=== PATIENT | female | born 1955 | race African-American/Black ===

== ENCOUNTER 2016-07-06 08:07 | Day surgery (SDC) | payer MEDICARE, OTHER ==
[~2016-07-06 08:07] MED LIST: PROPOFOL INJ 200 MG/20 ML VIAL IV ONE
[2016-07-06] MEDS ORDERED: PROPOFOL INJ 200 MG/20 ML VIAL IV ONE (09:56)
[2016-07-06 11:08] VITALS: BP 167/79
--- NOTE | 2016-07-06 14:51 | Operative Report ---
Operative Report DATE OF SURGERY: 07/06/16 Operative Report: The risks, benefits and alternatives of the procedure including risks of bleeding, perforation requiring surgery are explained to the patient detail and informed consent is obtained. Patient is placed in the left lateral decubital position and brought back to the endoscopy suite. Timeout is called. Propofol medication is administered. A rectal examination is Did not reveal any masses tears or fissures. An Olympus videoscope this inserted into the patient's rectum. Keeping the lumen in site at all times the scope was then gradually advanced all the way to the cecum. The cecum as identified by the usual anatomical landmarks of the ileocecal valve as well as the appendiceal office. Photodocumentation was obtained. Prep is good. The scope was then sequentially pulled back via the various segments of the colon including the ascending colon, hepatic flexure, transverse colon, splenic flexure, descending colon and finally into the rectosigmoid portions of the colon. Retroflexion maneuvers performed. The risks benefits and alternatives of the procedure explained to the patient in detail and informed consent is obtained that GIF Olympus video scope was inserted into the patient's mouth and hypopharynx the esophagus is identified intubated and insufflated the scope was then advanced through the esophagus stomach and duodenum retroflexion maneuver is done the esophagus stomach and first and second portions of the duodenum examined PREOPERATIVE DIAGNOSIS: Dysphagia, difficulty swallowing history of note Schatzki's ring. Colorectal cancer screening POSTOPERATIVE DIAGNOSIS: Mild right-sided colitis status post biopsy. Esophagitis versus Raza's status post biopsy. No Schatzki's ring that is broken. Gastritis biopsies obtained to rule out Helicobacter pylori. Duodenitis OPERATION: Colonoscopy with biopsy. EGD with biopsy SURGEON: JORDY BENNETT ANESTHESIA: LMAC TISSUE REMOVED OR ALTERED: Colon specimens obtained rule out lymphocytic, microscopic, collagenous colitis. Gastric specimen obtained rule out Helicobacter pylori. Esophageal specimen obtained for confirmation of possible Raza's esophagus COMPLICATIONS: None. ESTIMATED BLOOD LOSS: none INTRAOPERATIVE FINDINGS: As described above. Colonoscopy does not show any AVMs , diverticulosis, AVMs. PROCEDURE: Patient tolerated the procedure well. No immediate postprocedure complications are noted. Patient is discharged in good condition. Discharge date 07/06/2016. Discharge diet: Regular. Discharge activity: Regular. Patient does have a 2-3 week follow-up to discuss findings. Patient is instructed to call the office or proceed to the emergency room should there be any further problems or questions. We'll await on biopsies. Surveillance colonoscopy in 7-10 years.
== END 2016-07-06 10:51 | disposition home or self-care (01) ==
LOC: END 08:07
PROVIDERS: ATTEND Internal Medicine Gastroenterology
PROC: 0DBF8ZX Excision of Right Large Intestine, Via Natural or Artificial Opening Endoscopic, Diagnostic (ICD-10-PCS; 2016-07-06)
PROC: 0DB68ZX Excision of Stomach, Via Natural or Artificial Opening Endoscopic, Diagnostic (ICD-10-PCS; principal; 2016-07-06 09:30)
PROC: 0DB58ZX Excision of Esophagus, Via Natural or Artificial Opening Endoscopic, Diagnostic (ICD-10-PCS; 2016-07-06 09:30)
DX: K29.50 Unspecified chronic gastritis without bleeding (principal); B96.81 Helicobacter pylori [H. pylori] as the cause of diseases classified elsewhere; K29.80 Duodenitis without bleeding; K52.9 Noninfective gastroenteritis and colitis, unspecified; E11.9 Type 2 diabetes mellitus without complications; I10 Essential (primary) hypertension; E78.00 Pure hypercholesterolemia, unspecified; K21.9 Gastro-esophageal reflux disease without esophagitis; Z79.4 Long term (current) use of insulin; Z79.899 Other long term (current) drug therapy
CPT/HCPCS: 43239; 45380; 82962; 88342 ×2; 88305 ×2; 88312 ×2; J2704; 740

== ENCOUNTER 2016-08-05 08:40 | Day surgery (SDC) | payer MEDICARE, OTHER ==
[2016-08-05] MEDS ORDERED: FENTANYL CITRATE INJ/PF 100 MCG/2 ML AMPUL ONE (09:03)
[2016-08-05] MEDS ORDERED: MIDAZOLAM 2 MG/2 ML INJ ONE (09:03)
[2016-08-05] MEDS ORDERED: DIPHENHYDRAMINE HCL 50 MG/ML VIAL ONE (09:03)
[2016-08-05] MEDS ORDERED: PROMETHAZINE HCL INJ 25 MG/1 ML VIAL ONE (09:03)
[2016-08-05] MEDS ORDERED: NALOXONE HCL INJ/PF 0.4 MG/1 ML SDV ONE (09:03)
[2016-08-05] MEDS ORDERED: ONDANSETRON HCL INJ/PF 4 MG/2 ML SDV ONE (09:03)
[2016-08-05] MEDS ORDERED: EPINEPHRINE INJ 1 MG/10 ML DISP.SYRIN ONE (09:04)
[2016-08-05] MEDS ORDERED: FLUMAZENIL INJ 0.5 MG/5 ML VIAL IV ONE (09:04)
[2016-08-05] MEDS ORDERED: GLUCAGON,HUMAN RECOMB 1 MG INJ ONE (09:04)
--- NOTE | 2016-08-05 09:32 | Operative Report ---
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 Conscious sedation monitoring time 15 minutes TISSUE REMOVED OR ALTERED: None. COMPLICATIONS: None. ESTIMATED BLOOD LOSS: none. INTRAOPERATIVE FINDINGS: Raza's esophagus. Gastritis improved PROCEDURE: Patient tolerated the procedure well No immediate postprocedure complications are noted. Patient is discharged in good condition. Discharge date 08/05/2016. Discharge diet: Regular. Discharge activity: Regular. 2-3 week follow-up to discuss findings. Surveillance EGD in 6 months. Patient is instructed to call the office or proceed to the emergency room after any further problems or questions.
[2016-08-05 10:39] VITALS: BP 158/75
== END 2016-08-05 10:40 | disposition home or self-care (01) ==
LOC: END 08:40
PROVIDERS: ATTEND Internal Medicine Gastroenterology
PROC: 0D558ZZ Destruction of Esophagus, Via Natural or Artificial Opening Endoscopic (ICD-10-PCS; principal; 2016-08-05 09:00)
DX: K22.710 Barrett's esophagus with low grade dysplasia (principal); K29.70 Gastritis, unspecified, without bleeding; E11.65 Type 2 diabetes mellitus with hyperglycemia; I10 Essential (primary) hypertension; E78.00 Pure hypercholesterolemia, unspecified; L65.9 Nonscarring hair loss, unspecified; B35.3 Tinea pedis; Z79.899 Other long term (current) drug therapy; Z79.4 Long term (current) use of insulin; F17.210 Nicotine dependence, cigarettes, uncomplicated
CPT/HCPCS: 43270; 82962; J2250; J3010; J0171; J1200; J1610; J2310; J2405; J2550; J3490

== ENCOUNTER 2016-08-28 09:43 | Emergency (ER) | payer MEDICARE, OTHER ==
[2016-08-28] MEDS ORDERED: ASPIRIN 81 MG TABLET, CHEWABLE PO ONE (10:12)
[2016-08-28] MEDS ORDERED: ONDANSETRON 4 MG TAB.RAPDIS PO ONE (10:23)
[2016-08-28] MEDS ORDERED: CLONIDINE HCL 0.1 MG TABLET PO ONE (10:23)
[2016-08-28] MEDS ORDERED: LOSARTAN POTASSIUM 50 MG TABLET PO ONE (10:36)
[2016-08-28] MEDS ORDERED: DIPHENHYDRAMINE HCL 50 MG/ML VIAL IV ONE (10:36)
[2016-08-28] MEDS ORDERED: NORMAL SALINE 1000 ML 1,000 ML IV ONE (10:36)
[2016-08-28] MEDS ORDERED: METOCLOPRAMIDE HCL INJ/PF 10 MG/2 ML SDV IV ONE (10:36)
[2016-08-28 11:09] LABS: ABSOLUTE BASOPHILS # (AUTO) 0.1 10^3/uL (0.0-0.2); ABSOLUTE LYMPHOCYTES (AUTO) 1.2 10^3/uL (0.5-4.7); ABSOLUTE MONOCYTES (AUTO) 1.2 10^3/uL (0.1-1.4); ABSOLUTE NEUT (AUTO) 13.7 10^3/uL (1.7-8.2); BASOPHILS % (AUTO) 0.4 % (0-2); EOSINOPHILS % (AUTO) 0.3 % (0-6); HEMOGLOBIN 10.3 g/dL (12.0-15.5); HGB HCT DIFFERENCE -0.1; LYMPHOCYTES % (AUTO) 7.6 % (13-45); MEAN CORPUSCULAR HEMOGLOBIN 27.1 pg (27.0-33.4); MEAN CORPUSCULAR HGB CONC 33.1 g/dL (32.0-36.0); MEAN CORPUSCULAR VOLUME 82 fl (80-97); MONOCYTES % (AUTO) 7.2 % (3-13); RED BLOOD COUNT 3.79 10^6/uL (3.72-5.28); RED CELL DISTRIBUTION WIDTH 14.3 % (11.5-14.0); SEGMENTED NEUTROPHILS % (AUTO) 84.5 % (42-78); WHITE BLOOD COUNT 16.2 10^3/uL (4.0-10.5)
[2016-08-28] MEDS ORDERED: NIFEDIPINE 30 MG TAB.ER.24 PO ONE (11:23)
[2016-08-28 11:32] LABS: ALANINE AMINOTRANSFERASE 37 U/L (9-52); ALBUMIN 3.8 g/dL (3.5-5.0); ALKALINE PHOSPHATASE 164 U/L (38-126); ASPARTATE AMINO TRANSFERASE 39 U/L (14-36); BILIRUBIN,TOTAL 0.7 mg/dL (0.2-1.3); BLOOD UREA NITROGEN 10 mg/dL (7-20); CALCIUM 9.3 mg/dL (8.4-10.2); CARBON DIOXIDE 25 mmol/L (22-30); CHLORIDE 98 mmol/L (98-107); CREATINE KINASE 106 U/L (30-135); CREATININE RESULT 0.67 mg/dL (0.52-1.25); GLUCOSE 245 mg/dL (75-110); LIPASE 21.3 U/L (23-300); POTASSIUM 3.4 mmol/L (3.6-5.0); SODIUM 144.5 mmol/L (137-145); TOTAL PROTEIN 7.5 g/dL (6.3-8.2)
[2016-08-28 11:45] LABS: ANION GAP 22 (5-19)
--- NOTE | 2016-08-28 13:17 | ER Document Report ---
ED General - General Chief Complaint: Blood Pressure Problem Stated Complaint: BLOOD PRESSURE PROBLEM TRAVEL OUTSIDE OF THE [place] IN LAST 30 DAYS: No - HPI Patient complains to provider of: elevated blood pressure nausea vomiting Notes: Patient coming in for evaluation of elevated blood pressure nausea vomiting. Patient states vomited multiple times morning and did not take her blood pressure medication due to vomiting. Patient denies any recent trauma denies fevers chills diarrhea. Denies any sick contacts or recent antibiotics. Upon my evaluation patient is resting comfortably. Patient states no change in her medications from previous hospitalizations. - Related Data Allergies/Adverse Reactions: No Known Allergies Allergy (Verified 08/28/16 10:10) Past Medical History - Social History Smoking Status: Former Smoker Chew tobacco use (# tins/day): No Frequency of alcohol use: None Drug Abuse: None Family History: Reviewed & Not Pertinent Patient has suicidal ideation: No Patient has homicidal ideation: No - Past Medical History Cardiac Medical History: Reports: Hx Coronary Artery Disease - STENTS PLACED IN LEGS, Hx Hypertension Denies: Hx Heart Attack Pulmonary Medical History: Denies: Hx Asthma, Hx Bronchitis, Hx COPD, Hx Pneumonia Neurological Medical History: Denies: Hx Cerebrovascular Accident, Hx Seizures Endocrine Medical History: Reports: Hx Diabetes Mellitus Type 1 Renal/ Medical History: Denies: Hx Peritoneal Dialysis Musculoskeltal Medical History: Denies Hx Arthritis Past Surgical History: Reports: Hx Hysterectomy, Hx Vascular Surgery - Right leg artery stent - Immunizations Hx Diphtheria, Pertussis, Tetanus Vaccination: Yes Review of Systems - Review of Systems Constitutional: Other - Elevated blood pressure EENT: No symptoms reported Cardiovascular: No symptoms reported Respiratory: No symptoms reported Gastrointestinal: Nausea, Vomiting Genitourinary: No symptoms reported Female Genitourinary: No symptoms reported Musculoskeletal: No symptoms reported Skin: No symptoms reported Hematologic/Lymphatic: No symptoms reported Neurological/Psychological: No symptoms reported Physical Exam - Vital signs Vitals: Temp Pulse Resp BP Pulse Ox 98.2 F 77 18 198/88 H 100 08/28/16 10:00 08/28/16 10:00 08/28/16 10:00 08/28/16 10:00 08/28/16 10:00 Interpretation: Normal - General General appearance: Appears well, Alert - HEENT Head: Normocephalic, Atraumatic Eyes: Normal Pupils: PERRL - Respiratory Respiratory status: No respiratory distress Chest status: Nontender Breath sounds: Normal Chest palpation: Normal - Cardiovascular Rhythm: Regular Heart sounds: Normal auscultation Murmur: No - Abdominal Inspection: Normal Distension: No distension Bowel sounds: Normal Tenderness: Nontender Organomegaly: No organomegaly - Back Back: Normal, Nontender - Extremities General upper extremity: Normal inspection, Nontender, Normal color, Normal ROM , Normal temperature General lower extremity: Normal inspection, Nontender, Normal color, Normal ROM , Normal temperature, Normal weight bearing. No: Genesis's sign - Neurological Neuro grossly intact: Yes Cognition: Normal Orientation: AAOx4 [place] Coma Scale Eye Opening: Spontaneous [place] Coma Scale Verbal: Oriented Elizabeth Coma Scale Motor: Obeys Commands [place] Coma Scale Total: 15 Speech: Normal Motor strength normal: LUE, RUE, LLE, RLE Sensory: Normal - Psychological Associated symptoms: Normal affect, Normal mood - Skin Skin Temperature: Warm Skin Moisture: Dry Skin Color: Normal Course - Re-evaluation Re-evalutation: 08/28/16 18:30 Patient's lab work shows no critical etiology. Patient was given anti-medics and then her blood pressure medications with reduction her blood pressure. Patient feeling better asking for a meal. Patient was given antinausea medication discharged home more likely etiology of her symptoms is a viral illness. - Vital Signs Vital signs: Temp Pulse Resp BP Pulse Ox 98.3 F 74 20 195/61 H 100 08/28/16 13:32 08/28/16 13:32 08/28/16 13:32 08/28/16 13:32 08/28/16 13:32 - Laboratory Result Diagrams: 08/28/16 11:00 08/28/16 11:00 Laboratory results interpreted by me: 08/28/16 08/28/16 11:00 11:00 WBC 16.2 H Hgb 10.3 L Hct 31.0 L RDW 14.3 H Seg Neutrophils % 84.5 H Lymphocytes % 7.6 L Absolute Neutrophils 13.7 H Potassium 3.4 L Anion Gap 22 H Glucose 245 H AST 39 H Alkaline Phosphatase 164 H Lipase 21.3 L Discharge - Discharge Clinical Impression: Hypertension Qualifiers: Hypertension type: unspecified secondary hypertension Qualified Code(s): I15.9 - Secondary hypertension, unspecified Nausea & vomiting Qualifiers: Vomiting type: unspecified Vomiting Intractability: unspecified Qualified Code( s): R11.2 - Nausea with vomiting, unspecified Condition: Good Disposition: HOME, SELF-CARE Instructions: Nausea or Vomiting, Nonspecific ([facility]), High Blood Pressure ([facility]) Additional Instructions: Please take your home hypertensive medications as prescribed. You may take nausea medication as prescribed to as well. If one nausea medication does not work you may try the other. Return to the ER symptoms worsen. Prescriptions: Ondansetron [Zofran Odt 4 mg Tablet] 1 - 2 tab PO Q4H PRN #20 tab.rapdis PRN Reason: For Nausea/Vomiting Promethazine HCl [Phenergan 25 mg Tablet] 1 - 2 tab PO Q6H PRN #20 tablet PRN Reason: Forms: Return to Work Referrals: PAWAN BRODY MD [Primary Care Provider] - Follow up as needed
[2016-08-28 13:33] VITALS: BP 195/61
--- NOTE | 2016-08-29 16:05 | EKG REPORT ---
SEVERITY:- ABNORMAL ECG - SINUS RHYTHM ABNRM R PROG, CONSIDER ASMI OR LEAD PLACEMENT : Confirmed by: Jagruti Chandler MD 29-Aug-2016 16:04:40
== END 2016-08-28 13:32 | disposition home or self-care (01) ==
LOC: ER 09:43
DX: R11.2 Nausea with vomiting, unspecified (principal); I10 Essential (primary) hypertension; I25.10 Atherosclerotic heart disease of native coronary artery without angina pectoris; Z87.891 Personal history of nicotine dependence; Z79.899 Other long term (current) drug therapy; E10.9 Type 1 diabetes mellitus without complications
CPT/HCPCS: 93005; 99284; 96374; 96375; 36415; 82553; 82550; 83690; 85025; 80053; 71010; 93010; A9270 ×4; J1200; J2765; J7030

== ENCOUNTER 2016-09-15 16:12 | Inpatient (IN) | payer MEDICARE, OTHER ==
--- NOTE | 2016-09-15 17:52 | ER Document Report ---
ED Medical Screen (RME) - General Mode of Arrival: Ambulatory Information source: Patient, Relative - daughter TRAVEL OUTSIDE OF THE [place] IN LAST 30 DAYS: No - HPI Patient complains to provider of: Low Hemoglobin count Associated Symptoms: Other - see notes above - General Chief Complaint: Abnormal Lab Results Stated Complaint: WEAKNESS Notes: 61 year old female presents to the ED after being sent in by Dr. Headley, her primary care physician, for a low hemoglobin count. Patient's daughter reports that blood work was also done by [email or web address] which also indicated a low hemoglobin. Patient denies any bleeding, including blood in the stool, urine, or vomit. Patient's daughter states that the patient was constipated 1 week ago and had to take a laxative for relief. Patient currently has diarrhea and lower abdominal pain. Patient denies being on any blooding thinning medication. (CHASTITY CLARK) - Related Data Allergies/Adverse Reactions: No Known Allergies Allergy (Verified 09/15/16 16:15) Past Medical History - General Information source: Patient, Relative - daughter - Past Medical History Cardiac Medical History: Reports: Hx Coronary Artery Disease - STENTS PLACED IN LEGS, Hx Hypertension Denies: Hx Heart Attack Endocrine Medical History: Reports: Hx Diabetes Mellitus Type 1 Renal/ Medical History: Denies: Hx Peritoneal Dialysis Musculoskeltal Medical History: Denies Hx Arthritis Past Surgical History: Reports: Hx Hysterectomy, Hx Vascular Surgery - Right leg artery stent - Immunizations Hx Diphtheria, Pertussis, Tetanus Vaccination: Yes Review of Systems - Review of Systems Constitutional: No symptoms reported EENT: No symptoms reported Cardiovascular: No symptoms reported Respiratory: No symptoms reported Gastrointestinal: See HPI, Abdominal pain - lower, Diarrhea. denies: Vomiting, Blood in vomit, Black stools Genitourinary: No symptoms reported Female Genitourinary: No symptoms reported Musculoskeletal: No symptoms reported Skin: No symptoms reported Hematologic/Lymphatic: No symptoms reported Neurological/Psychological: No symptoms reported -: Yes All other systems reviewed and negative Physical Exam - General General appearance: Alert In distress: None - Respiratory Respiratory status: No respiratory distress - Abdominal Inspection: Normal Distension: No distension Tenderness: Nontender Course - Re-evaluation Re-evalutation: 09/15/16 18:12 I personally performed the services described in the documentation, reviewed and edited the documentation which was dictated to the scribe in my presence, and it accurately records my words and actions. (ERWIN GALICIA) - Vital Signs Vital signs: Temp Pulse Resp BP Pulse Ox 98.6 F 78 18 139/59 H 97 09/15/16 16:16 09/15/16 16:16 09/15/16 16:16 09/15/16 16:16 09/15/16 16:16 Scribe Documentation - Scribe Written by Scribe:: Leo Moss, 09/15/2016 0634 acting as scribe for :: Dorian
[2016-09-15 18:29] LABS: ABSOLUTE EOSINOPHILS # (AUTO) 0.2 10^3/uL (0.0-0.6); ABSOLUTE LYMPHOCYTES (AUTO) 1.9 10^3/uL (0.5-4.7); ABSOLUTE MONOCYTES (AUTO) 1.3 10^3/uL (0.1-1.4); BASOPHILS % (AUTO) 0.3 % (0-2); EOSINOPHILS % (AUTO) 1.3 % (0-6); HEMATOCRIT 26.3 % (36.0-47.0); HEMOGLOBIN 8.3 g/dL (12.0-15.5); HGB HCT DIFFERENCE -1.4; LYMPHOCYTES % (AUTO) 14.2 % (13-45); MEAN CORPUSCULAR HEMOGLOBIN 25.1 pg (27.0-33.4); MEAN CORPUSCULAR HGB CONC 31.6 g/dL (32.0-36.0); MEAN CORPUSCULAR VOLUME 79 fl (80-97); MONOCYTES % (AUTO) 9.8 % (3-13); RED BLOOD COUNT 3.32 10^6/uL (3.72-5.28); RED CELL DISTRIBUTION WIDTH 17.9 % (11.5-14.0); SEGMENTED NEUTROPHILS % (AUTO) 74.4 % (42-78); WHITE BLOOD COUNT 13.4 10^3/uL (4.0-10.5)
[2016-09-15 18:38] LABS: PROTHROMBIN TIME 13.3 SEC (11.4-15.4)
[2016-09-15 18:39] LABS: PARTIAL THROMBOPLASTIN TIME 34.9 SEC (23.5-35.8)
[2016-09-15 18:43] LABS: ALANINE AMINOTRANSFERASE 71 U/L (9-52); ALBUMIN 3.3 g/dL (3.5-5.0); ALKALINE PHOSPHATASE 197 U/L (38-126); ANION GAP 13 (5-19); ASPARTATE AMINO TRANSFERASE 54 U/L (14-36); BILIRUBIN,DIRECT 0.2 mg/dL (0.0-0.4); BILIRUBIN,TOTAL 0.4 mg/dL (0.2-1.3); BLOOD UREA NITROGEN 15 mg/dL (7-20); CALCIUM 9.1 mg/dL (8.4-10.2); CARBON DIOXIDE 27 mmol/L (22-30); CHLORIDE 92 mmol/L (98-107); CREATININE RESULT 1.41 mg/dL (0.52-1.25); POTASSIUM 4.8 mmol/L (3.6-5.0); SODIUM 132.3 mmol/L (137-145); TOTAL PROTEIN 6.9 g/dL (6.3-8.2)
[2016-09-15 18:52] LABS: GLUCOSE 533 mg/dL (75-110)
[2016-09-15] MEDS ORDERED: NORMAL SALINE 1000 ML 1,000 ML IV ONE ×2 (19:25→22:44)
[2016-09-15] MEDS ORDERED: METHOCARBAMOL 500 MG TABLET PO ONE (20:17)
--- NOTE | 2016-09-15 20:21 | ER Document Report ---
ED General - General Chief Complaint: Abnormal Lab Results Stated Complaint: WEAKNESS Mode of Arrival: Ambulatory Information source: Patient, Relative Notes: Patient presents emergency department for low hemoglobin. Patient was sent over by her primary care provider Dr. Headley. Patient gives history of colonoscopy and EGD done in July. They discovered Barretts. Patient was also treated for H. pylori. Patient reports that she's been feeling weak, she vomited recently yesterday, has had diarrhea and then constipation. She reports she's had decreased appetite for the past 3 weeks. Patient does have a history of high blood pressure and diabetes. Patient reports she's had a blood transfusion in the past after she had a hysterectomy. Glucose today was 533, patient reports she didn't take her insulin. Patient was able to eat whyte egg and cheese sandwich this morning. Patient is complaining she's hungry now requesting food. Patient is now complaining that the back of her neck and upper shoulders ache. She denies trauma. She denies fever. TRAVEL OUTSIDE OF THE [place] IN LAST 30 DAYS: No - HPI Onset: Other Onset/Duration: Persistent - 3 weeks Quality of pain: Achy Severity: Severe Pain Level: 4 Associated symptoms: Diarrhea, Vomiting, Other - neck pain Exacerbated by: Denies Relieved by: Denies Similar symptoms previously: Yes Recently seen / treated by doctor: Yes - Related Data Allergies/Adverse Reactions: No Known Allergies Allergy (Verified 09/15/16 16:15) Past Medical History - General Information source: Patient, Relative - daughter Last Menstrual Period: hys - Social History Smoking Status: Unknown if Ever Smoked Cigarette use (# per day): No Chew tobacco use (# tins/day): Yes - snuff Frequency of alcohol use: None Drug Abuse: None Lives with: Family Family History: Reviewed & Not Pertinent Patient has suicidal ideation: No Patient has homicidal ideation: No - Past Medical History Cardiac Medical History: Reports: Hx Coronary Artery Disease - STENTS PLACED IN LEGS, Hx Hypertension Denies: Hx Heart Attack Pulmonary Medical History: Denies: Hx Asthma, Hx Bronchitis, Hx COPD, Hx Pneumonia Neurological Medical History: Denies: Hx Cerebrovascular Accident, Hx Seizures Endocrine Medical History: Reports: Hx Diabetes Mellitus Type 1 Renal/ Medical History: Denies: Hx Peritoneal Dialysis GI Medical History: Reports: Hx Endoscopy Musculoskeltal Medical History: Denies Hx Arthritis Past Surgical History: Reports: Hx Hysterectomy, Hx Vascular Surgery - Right leg artery stent - Immunizations Hx Diphtheria, Pertussis, Tetanus Vaccination: Yes Review of Systems - Review of Systems Notes: -Review HPI for review of systems., All other systems negative. Physical Exam - Vital signs Vitals: Temp Pulse Resp BP Pulse Ox 98.6 F 78 18 139/59 H 97 09/15/16 16:16 09/15/16 16:16 09/15/16 16:16 09/15/16 16:16 09/15/16 16:16 - Notes Notes: PHYSICAL EXAMINATION: GENERAL: nontoxic looking, looks tired HEAD: Atraumatic, normocephalic. EYES: Pupils equal round extraocular movements intact, sclera anicteric, conjunctiva are normal. ENT: TM WNL, nares patent, oropharynx clear without exudates. Moist mucous membranes. NECK: Normal range of motion, supple without lymphadenopathy c/o pain to posterior neck, upper back LUNGS: CTAB and equal. No wheezes rales or rhonchi. HEART: Regular rate and rhythm without murmurs ABDOMEN: Soft, no tenderness. No guarding, no rebound EXTREMITIES: Normal range of motion, no pitting edema. No cyanosis. NEUROLOGICAL: Cranial nerves grossly intact. Normal sensory/motor exams. PSYCH: Normal mood, normal affect. SKIN: Warm, Dry, normal turgor, no rashes or lesions noted - Rectal Tenderness: No Stool: Heme negative Hemorrhoids: None Course - Re-evaluation Re-evalutation: 09/15/16 21:12 Patient eating crackers drinking efrain bryanna reports she feels much better. Repeat Accu-Chek for 30. Since patient is eating will give her her regular insulin 09/15/16 23:[address] hernandez she agree's with admission. Dr Miles contacted, he is unable to take report. Patient and daughter updated on all results plan to admit. They've verbalized understanding. Pt hungry, food ordered. 09/16/16 01:00 Dr Miles in the ED still unavailable to take report. Patient resting quietly 09/16/16 05:13 Dr Miles called, updated on patient status, agrees to admission, tele. inpatient. Patient and daughter updated on admission. Patient is irritated wanting to know why it took so long, why she hasn't seen Dr. Miles and when will get the bed. She reports she hasn't slept all night. Emotional support provided. Percocet ordered for her neck pain. Pt looks good, nontoxic looking. Patient is still irritated..... - Vital Signs Vital signs: Temp Pulse Resp BP Pulse Ox 98.6 F 78 18 150/88 H 99 09/15/16 16:16 09/15/16 16:16 09/15/16 16:16 09/16/16 07:01 09/16/16 07:01 - Laboratory Result Diagrams: 09/16/16 06:20 09/16/16 06:20 Laboratory results interpreted by me: 09/15/16 09/15/16 09/15/16 18:20 18:20 21:07 WBC 13.4 H RBC 3.32 L Hgb 8.3 L Hct 26.3 L MCV 79 L MCH 25.1 L MCHC 31.6 L RDW 17.9 H Plt Count 511 H Absolute Neutrophils 10.0 H Sodium 132.3 L Chloride 92 L Creatinine 1.41 H Est GFR ( Amer) 46 L Est GFR (Non-Af Amer) 38 L Glucose 533 H* POC Glucose 442 H* AST 54 H ALT 71 H Alkaline Phosphatase 197 H Albumin 3.3 L Urine Protein Urine Glucose (UA) Ur Leukocyte Esterase 09/15/16 09/15/16 09/16/16 21:48 22:33 00:40 WBC RBC Hgb Hct MCV MCH MCHC RDW Plt Count Absolute Neutrophils Sodium Chloride Creatinine Est GFR ( Amer) Est GFR (Non-Af Amer) Glucose POC Glucose 466 H* 381 H AST ALT Alkaline Phosphatase Albumin Urine Protein 100 H Urine Glucose (UA) >=500 H Ur Leukocyte Esterase LARGE H 09/16/16 05:19 WBC RBC Hgb Hct MCV MCH MCHC RDW Plt Count Absolute Neutrophils Sodium Chloride Creatinine Est GFR ( Amer) Est GFR (Non-Af Amer) Glucose POC Glucose 322 H AST ALT Alkaline Phosphatase Albumin Urine Protein Urine Glucose (UA) Ur Leukocyte Esterase Discharge - Discharge Clinical Impression: Anemia, Hyperglycemia, Urinary tract infection Disposition: ADMITTED INPATIENT Admitting Provider: Carolina miles Unit Admitted: Telemetry
[2016-09-15] MEDS ORDERED: INSULIN REG, HUMAN 100 UNIT/ML 3 ML VIAL (PYX) SUBCUT ONE (21:09)
[2016-09-15 22:12] LABS: APPEARANCE,URINE SLIGHTLY-CLOUDY; BILIRUBIN,URINE NEGATIVE (NEGATIVE); GLUCOSE, URINE >=500 mg/dL (NEGATIVE); KETONES,URINE NEGATIVE (NEGATIVE); LEUKOCYTE ESTERASE,URINE LARGE (NEGATIVE); NITRITE,URINE NEGATIVE (NEGATIVE); PROTEIN,URINE 100 mg/dL (NEGATIVE); URINE SPECIFIC GRAVITY 1.007; UROBILINOGEN,URINE NEGATIVE mg/dL (<2.0)
[2016-09-15] MEDS ORDERED: INSULIN REG, HUMAN 100 UNIT/ML 3 ML VIAL (PYX) IV ONE (22:44)
[2016-09-15] MEDS ORDERED: OXYCODONE-ACETAMINOPHEN 5-325 MG TABLET PO ONE (22:53)
[2016-09-15] MEDS ORDERED: CEFTRIAXONE RTU 1 GM/D5W 50 ML IV ONE (23:35)
[2016-09-16] MEDS ORDERED: INSULIN GLARGINE,HUM.REC.ANLOG 1,000 UNIT/10 ML UNIT SUBCUT ONE (01:29)
[2016-09-16] MEDS ORDERED: OXYCODONE-ACETAMINOPHEN 5-325 MG TABLET PO ONE (05:25)
[2016-09-16 06:55] LABS: ALANINE AMINOTRANSFERASE 64 U/L (9-52); ALBUMIN 2.8 g/dL (3.5-5.0); ALKALINE PHOSPHATASE 174 U/L (38-126); ANION GAP 14 (5-19); ASPARTATE AMINO TRANSFERASE 52 U/L (14-36); BILIRUBIN,DIRECT 0.2 mg/dL (0.0-0.4); BILIRUBIN,TOTAL 0.2 mg/dL (0.2-1.3); BLOOD UREA NITROGEN 10 mg/dL (7-20); CALCIUM 8.7 mg/dL (8.4-10.2); CARBON DIOXIDE 25 mmol/L (22-30); CHLORIDE 101 mmol/L (98-107); CREATININE RESULT 0.86 mg/dL (0.52-1.25); GLUCOSE 320 mg/dL (75-110); MAGNESIUM 1.6 mg/dL (1.6-2.3); POTASSIUM 4.1 mmol/L (3.6-5.0); SODIUM 139.6 mmol/L (137-145); TOTAL PROTEIN 6.2 g/dL (6.3-8.2)
[2016-09-16 07:07] LABS: ABSOLUTE BASOPHILS # (AUTO) 0.1 10^3/uL (0.0-0.2); ABSOLUTE EOSINOPHILS # (AUTO) 0.2 10^3/uL (0.0-0.6); ABSOLUTE LYMPHOCYTES (AUTO) 1.7 10^3/uL (0.5-4.7); ABSOLUTE MONOCYTES (AUTO) 1.3 10^3/uL (0.1-1.4); ABSOLUTE NEUT (AUTO) 6.7 10^3/uL (1.7-8.2); BASOPHILS % (AUTO) 0.7 % (0-2); EOSINOPHILS % (AUTO) 1.7 % (0-6); HEMATOCRIT 24.2 % (36.0-47.0); HGB HCT DIFFERENCE -0.2; LYMPHOCYTES % (AUTO) 17.4 % (13-45); MEAN CORPUSCULAR HEMOGLOBIN 25.6 pg (27.0-33.4); MEAN CORPUSCULAR HGB CONC 33.1 g/dL (32.0-36.0); MEAN CORPUSCULAR VOLUME 77 fl (80-97); MONOCYTES % (AUTO) 13.1 % (3-13); RED BLOOD COUNT 3.13 10^6/uL (3.72-5.28); RED CELL DISTRIBUTION WIDTH 17.9 % (11.5-14.0); SEGMENTED NEUTROPHILS % (AUTO) 67.1 % (42-78)
[2016-09-16 07:27] LABS: ANISOCYTOSIS 2+; HYPOCHROMASIA 2+; MICROCYTOSIS 1+; POLYCHROMASIA 2+; ROULEAUX 2+; TARGET CELLS 1+
[2016-09-16] MEDS ORDERED: GLUCAGON,HUMAN RECOMB 1 MG INJ IM PRN (08:07)
[2016-09-16] MEDS ORDERED: INSULIN LISPRO 100 UNIT/ML 3 ML VIAL SUBCUT PRN (08:07)
[2016-09-16] MEDS ORDERED: DEXTROSE 40% GEL 15 GM TUBE PO PRN ×2 (08:07)
[2016-09-16] MEDS ORDERED: DEXTROSE 50%-WATER 25 GM/50 ML DISP.SYRIN IV PRN ×2 (08:07)
[2016-09-16] MEDS ORDERED: ACETAMINOPHEN 325 MG TABLET PO PRN (08:27)
[2016-09-16] MEDS ORDERED: ZOLPIDEM TARTRATE 5 MG TABLET PO PRN (08:30)
--- NOTE | 2016-09-16 08:46 | PDOC H&P ---
History of Present Illness Admission Date/PCP: 09/16/16 05:31 PAWAN BRODY MD Patient complains of: weak, low hgb History of Present Illness: ADAM RIVAS is a 61 year old -[place]ian female With underlying type I diabetes mellitus, hypertension, hyperlipidemia, hypothyroidism, and history of TIA who presents to the emergency room at the urging of her primary care provider for evaluation of above complaints. Describes a 3 week history of decreased appetite and generalized weakness. According to hand written note from primary care provider, hemoglobin on the th of last month was 10.3, and was 9 on the fourth at his office. She is status post upper and lower endoscopy in July, which revealed Raza 's esophagus along with H. pylori infection. H. pylori infection was treated. She has received blood transfusion only once in the past, after she underwent a hysterectomy. Describes nausea and vomiting on the third, along with recent diarrhea but now constipation. Also describes a 24-48 hour history of mild upper back and neck pain. There is been no chest or abdominal pain. No fever or chills. Patient has been discussed with emergency room nurse practitioner who evaluated the patient. . Laboratory results are listed in [facility] and are reviewed. Social history/personal habits: . Lives alone. Retired. Dip snuff. No alcohol or illicit drug use. Allergies/adverse reactions NKDA. Home medications Home medications initially autopopulated into [employer] may not accurately reflect patient's true medications, dosages, and/or frequencies. Unfortunately, patient uncertain of medications/dosages/frequencies. REVIEW OF SYSTEMS: Constitutional: No fever or chills. Eyes: Wears glasses. ENT: No swallowing problems or complaints. No hearing problems or complaints. Pulmonary: No current complaints. Cardiovascular: No current complaints, including chest pain. Gastrointestinal: See history and present illness. Skin: No current complaints, including rashes. Hematologic: Easy bruising. Neurologic: No current complaints, including numbness or tingling. Musculoskeletal: No current complaints, including painful joints. Psychiatric: No current complaints, including anxiety or depression. Endocrine: No current complaints, including polyuria. Genitourinary: No current complaints, including dysuria. PHYSICAL EXAMINATION: 5 feet 11 inches tall. 75.7 kg. BMI 23.3 kg/m. Blood pressure 174/73. 100% saturation on room air. Temperature 98.6. Pulse 78 and regular. Respirations are 24 and unlabored. Well-nourished well-developed -[place]ian female appearing approximately her stated age. Pleasant awake alert and cooperative. Mildly anxious, but no evidence of agitation. Daughters present at her side; patient approves. Skin is warm and dry. No grossly obvious evidence of rash in areas of skin examined. No subcutaneous nodules palpated. ENT: Hearing grossly normal to normal conversation. Tongue midline on protrusion pink and slightly moist. Eyes: No scleral icterus. Pupils equal and reactive to light at 4 mm. slightly pale conjunctivae. Neck is supple and nontender to gentle active range of motion and palpation. Midline trachea. No palpable thyroid nodule mass enlargement or tenderness. Lymphatic: No palpable cervical or clavicular nodes. Neck and lymphatic exams limited by patient body habitus. Psychiatric: Fair to reasonable insight into acute and chronic medical issues. Oriented to time location and why here. Lungs: Auscultation reveals clear and equal breath sounds bilaterally. No use of accessory respiratory muscles. Cardiovascular: Heart regular rate and rhythm, without gallop murmur or rub. No carotid or abdominal aortic bruits. No ankle or pedal edema. Faintly palpable dorsalis pedis pulses. Abdomen: soft, slightly, distended nontender with positive bowel sounds. Unable to adequately evaluate abdomen for masses or organomegaly due to distention. Extremities: Feet are warm and dry. No calf tenderness to compression. No grossly obvious visual evidence of calf swelling. Gentle manipulation of lower extremities fails to reveal any obvious evidence of injury or instability to knees hips or ankles. Neurologic: Moves upper extremities grossly normally. Patellar reflexes absent. Absent Babinski. Light touch is intact at feet. Dorsiflexion and plantarflexion of feet 5 / 5 and symmetric. Past Medical History Cardiac Medical History: Reports: Hyperlipidema, Hypertension, Peripheral Vascular Disease - Stents placed in legs. Denies: Myocardial Infarction, Pulmonary Embolism Pulmonary Medical History: Denies: Asthma, Bronchitis, Chronic Obstructive Pulmonary Disease (COPD), Pneumonia Neurological Medical History: Reports: Other - Previous TIA Denies: Hemorrhagic CVA, Ischemic CVA, Seizures Endocrine Medical History: Reports: Diabetes Mellitus Type 1, Hypothyroidism Denies: Diabetes Mellitus Type 2, Hyperthyroidism GI Medical History: Reports: Other - July 2016 diagnosis of Raza's esophagus along with H. pylori infection; H. pylori infection treated. Denies: Cirrhosis, Hepatitis Musculoskeltal Medical History: Denies: Arthritis Skin Medical History: Denies: None Psychiatric Medical History: Reports: Tobacco Dependency Denies: Alcohol Dependency, Depression, General Anxiety Disorder, Substance Abuse Hematology: Denies: Anemia Infectious Medical History: Denies: Hepatitis B, Hepatitis C Past Surgical History Past Surgical History: Reports: Hysterectomy, Vascular Surgery - Right leg artery stent, Other - Cataract surgery Social History Information Source: Patient, Relative, Emergency Med Personnel, [facility] Records Lives with: Alone Smoking Status: Unknown if Ever Smoked - Dips snuff Frequency of Alcohol Use: None Drugs: None - Advance Directive Resuscitation Status: Full Code Surrogate healthcare decision maker:: Daughter Alyssia Mondragon Family History Family History: Reviewed & Not Pertinent Parental Family History Reviewed: Yes Children Family History Reviewed: Yes Sibling(s) Family History Reviewed.: Yes Medication/Allergy Home Medications: Clonidine HCl [Clonidine HCl ER] 1 tab PO DAILY 09/03/13 Clopidogrel Bisulfate [Plavix 75 mg Tablet] 75 mg PO DAILY 09/03/13 Insulin Glargine,Hum.rec.anlog [Lantus] 60 unit SQ QHS 09/03/13 Acetaminophen [Tylenol Extra Strength 500 mg Tablet] 1 tab PO Q8 PRN 07/02/16 Cyanocobalamin (Vitamin B-12) [Vitamin B-12] 1,000 mcg SL DAILY 07/02/16 Duloxetine HCl [Cymbalta] 60 mg PO DAILY 07/02/16 Levothyroxine Sodium 25 mcg PO DAILY 07/02/16 Losartan Potassium 100 mg PO DAILY 07/02/16 Memantine HCl 10 mg PO BID 07/02/16 Nifedipine [Procardia XL 60 mg Tablet] 60 mg PO DAILY 07/02/16 Pravastatin Sodium 80 mg PO DAILY 07/02/16 Pregabalin [Lyrica] 150 mg PO DAILY 07/02/16 Vitamin E 1,000 unit PO DAILY 07/02/16 Insulin Aspart [Novolog Insulin 100 Unit/1 ml 10 ml] 0 unit SUBCUT .SLD SCALE PRN 07/06/16 Ondansetron [Zofran Odt 4 mg Tablet] 1 - 2 tab PO Q4H PRN #20 tab.rapdis Promethazine HCl [Phenergan 25 mg Tablet] 1 - 2 tab PO Q6H PRN #20 tablet Allergies/Adverse Reactions: No Known Allergies Allergy (Verified 09/15/16 16:15) Physical Exam Vital Signs: Temp Pulse Resp BP Pulse Ox 98.6 F 78 18 150/88 H 99 09/15/16 16:16 09/15/16 16:16 09/15/16 16:16 09/16/16 07:01 09/16/16 07:01 Results Laboratory Results: 09/16/16 06:20 09/16/16 06:20 09/16/16 09/16/16 09/16/16 06:20 06:20 06:20 WBC 10.0 RBC 3.13 L Hgb 8.0 L Hct 24.2 L MCV 77 L MCH 25.6 L MCHC 33.1 RDW 17.9 H Plt Count 476 H Seg Neutrophils % 67.1 Lymphocytes % 17.4 Monocytes % 13.1 H Eosinophils % 1.7 Basophils % 0.7 Absolute Neutrophils 6.7 Absolute Lymphocytes 1.7 Absolute Monocytes 1.3 Absolute Eosinophils 0.2 Absolute Basophils 0.1 Retic Count (auto) 3.44 H Absolute Retic 0.108 Sodium 139.6 Potassium 4.1 Chloride 101 Carbon Dioxide 25 Anion Gap 14 BUN 10 Creatinine 0.86 Est GFR ( Amer) > 60 Est GFR (Non-Af Amer) > 60 Glucose 320 H Calcium 8.7 Magnesium 1.6 Iron 18.1 L TIBC 208 L % Saturation 9 Ferritin 293.00 H Total Bilirubin 0.2 AST 52 H ALT 64 H Alkaline Phosphatase 174 H Total Protein 6.2 L Albumin 2.8 L Vitamin B12 973.0 H Folate 10.20 TSH 09/16/16 06:20 WBC RBC Hgb Hct MCV MCH MCHC RDW Plt Count Seg Neutrophils % Lymphocytes % Monocytes % Eosinophils % Basophils % Absolute Neutrophils Absolute Lymphocytes Absolute Monocytes Absolute Eosinophils Absolute Basophils Retic Count (auto) Absolute Retic Sodium Potassium Chloride Carbon Dioxide Anion Gap BUN Creatinine Est GFR ( Amer) Est GFR (Non-Af Amer) Glucose Calcium Magnesium Iron TIBC % Saturation Ferritin Total Bilirubin AST ALT Alkaline Phosphatase Total Protein Albumin Vitamin B12 Folate TSH 0.98 Assessment & Plan - Diagnosis (1) Anemia Qualifiers: Anemia type: unspecified type Qualified Code(s): D64.9 - Anemia, unspecified Is this a current diagnosis for this admission?: YesPlan: Follow-up CBC with differential. Transfuse as needed. Basic anemia screening labs have been drawn. (2) Diabetes mellitus type 1, uncontrolled Qualifiers: Diabetes mellitus complication status: without complication Qualified Code(s): E10.9 - Type 1 diabetes mellitus without complications Is this a current diagnosis for this admission?: YesPlan: Cardiac diabetic diet. Accu-Cheks with appropriate sliding scale coverage.Resume home medications as appropriate once these have been determined and reviewed. (3) Elevated LFTs Is this a current diagnosis for this admission?: YesPlan: Uncertain etiology. Denies underlying biliary disease. Hepatitis screening panel drawn. (4) General weakness Is this a current diagnosis for this admission?: Yes (5) Urinary tract infection Qualifiers: Urinary tract infection type: site unspecified Is this a current diagnosis for this admission?: YesPlan: Blood and urine cultures. Rocephin. I have strongly encouraged patient not to get out of bed without notifying staff , to avoid a fall with injury. Knee high SCDs for DVT prophylaxis, with gradually worsening anemia, with possibly need for blood transfusion, will hold Lovenox or heparin at this point in time. Impression and plans were discussed with patient, and daughter, both of whom concur. Time spent in evaluation and management of patient: 62 minutes. (6) Raza esophagus Qualifiers: Raza's esophagus type: with dysplasia of unspecified degree Qualified Code(s): K22.719 - Raza's esophagus with dysplasia, unspecified; K22.71 - Raza's esophagus with dysplasia Is this a current diagnosis for this admission?: YesPlan: Outpatient follow-up by gastroenterology. (7) History of Helicobacter pylori infection Is this a current diagnosis for this admission?: Yes - Inpatient Certification Based on my medical assessment, after consideration of the patient's comorbidities, presenting symptoms, or acuity I expect that the services needed warrant INPATIENT care.: Yes I certify that my determination is in accordance with my understanding of Medicare's requirements for reasonable and necessary INPATIENT services [42 CFR 412.3e].: Yes Medical Necessity: Need Close Monitoring Due to Risk of Patient Decompensation, Need for IV Antibiotics Post Hospital Care: D/C or Transfer Summary
[2016-09-16] MEDS ORDERED: CEFTRIAXONE 1 GM/D5W RTU 50 ML IV SCH (10:00)
[2016-09-16 12:37] VITALS: BP 190/72
--- NOTE | 2016-09-16 14:38 | PDOC DISCHARGE SUMMARY ---
General - Admit/Disc Date/PCP Admission Date/Primary Care Provider: 09/16/16 08:08 PAWAN BRODY MD Discharge Date: 09/16/16 - Discharge Diagnosis (1) Anemia Is this a current diagnosis for this admission?: Yes (2) Diabetes mellitus type 1, uncontrolled Is this a current diagnosis for this admission?: Yes (3) Elevated LFTs Is this a current diagnosis for this admission?: Yes (4) Urinary tract infection Is this a current diagnosis for this admission?: Yes (5) Raza esophagus Is this a current diagnosis for this admission?: Yes - Additional Information Resuscitation Status: Full Code Discharge Diet: Cardiac - low-fat low-salt, Diabetic - no concentrated sweets Discharge Activity: Activity As Tolerated, Balance Activity w/Rest Home Medications: Acetaminophen/Diphenhydramine [Acetaminophen-Diphenhyd 500-25] 1 each PO QHS 10/28 Clonidine HCl [Catapres 0.2 mg Tablet] 0.2 mg PO Q12 09/16/16 Clopidogrel Bisulfate [Clopidogrel] 75 mg PO DAILY 09/16/16 Duloxetine HCl [Cymbalta] 120 mg PO QHS 09/16/16 Ferrous Sulfate [Feosol 325 mg Tablet] 325 mg PO BID #60 tab 09/16/16 Insulin Aspart [Novolog Insulin (Aspart) 100 unit/mL] 0 unit SUBCUT .SLD SCALE 09/16/16 Insulin Glargine,Hum.rec.anlog [Lantus] 60 unit SQ QHS 09/16/16 Levothyroxine Sodium [Synthroid 0.025 mg Tablet] 25 mcg PO QAM 09/16/16 Losartan Potassium [Cozaar 100 mg Tablet] 100 mg PO QHS 09/16/16 Memantine HCl [Namenda 10 mg Tablet] 10 mg PO BID 09/16/16 Nifedipine [Nifedipine ER] 60 mg PO QHS 09/16/16 Omeprazole 20 mg PO DAILY 09/16/16 Pregabalin [Lyrica] 150 mg PO QHS 09/16/16 Sulfamethoxazole/Trimethoprim [Bactrim Ds Tablet] 1 each PO BID #6 tablet Additional Information: 1. CBC with primary care physician 5 days 2. Liver function tests as outpatient with primary care physician in 2-4 weeks. History of Present Illness Patient complains of: Generalized weakness History of Present Illness: ADAM RIVAS is a 61 year old female, with hypertension, diabetes mellitus, presents to the hospital with 3 weeks of generalized weakness and decreased appetite. In the emergency room patient was found to have a hemoglobin of 8.3. Patient's had bouts of diarrhea intermittently secondary to bowel preparation , and laxative. Reported underwent colonoscopy and endoscopy July of this year, showing Raza's esophagus. Patient was then referred for admission due to low hemoglobin. For details please refer to history and physical examination performed by the admitting physician. Hospital Course Hospital Course: The patient was admitted to the medical floor with telemetry. Stool for blood was negative. The patient was begun on intravenous hydration and a follow-up hemoglobin went down to 8. Initial WBC was elevated and eventually normalized. She had a urinary tract infection on urinalysis and was given intravenous antibiotic. With above measures the patient significantly improved and does not want to stay any longer in the hospital. She requested to be discharged and just follow-up on an outpatient basis with her primary care physician. Of note her liver function test was abnormal but on follow-up it is not trending up. Patient was advised to hold her cholesterol medication and to be reevaluated by her primary care physician wedded to resume it. Patient was advised to return to the emergency room if her symptoms recur. She was likewise advised to follow up on an outpatient basis with hematology. Physical Exam Vital Signs: Temp Pulse Resp BP Pulse Ox 98.2 F 76 18 190/72 H 98 09/16/16 12:00 09/16/16 12:00 09/16/16 12:00 09/16/16 12:00 09/16/16 12:00 General appearance: PRESENT: no acute distress, cooperative Head exam: PRESENT: normocephalic Eye exam: PRESENT: conjunctiva pale Mouth exam: PRESENT: moist, neck supple Neck exam: ABSENT: JVD Respiratory exam: PRESENT: clear to auscultation nano Cardiovascular exam: PRESENT: RRR. ABSENT: gallop GI/Abdominal exam: PRESENT: normal bowel sounds, soft. ABSENT: distended Extremities exam: ABSENT: pedal edema Neurological exam: PRESENT: alert, awake, oriented to person, oriented to place , oriented to time, oriented to situation Skin exam: PRESENT: dry, warm. ABSENT: cyanosis Qualifiers PATEINT BEING DISCHARGED WITH ANY OF THE FOLLOWING DIAGNOSIS?: No Plan Discharge Plan: Follow-up with primary care physician in 5 days. Follow-up with hematology(Dr. Galeano) in 2 weeks. Time Spent: Less than 30 Minutes
== END 2016-09-16 15:47 | disposition home or self-care (01) | DRG 812 ==
LOC: ER 16:12 → EH 09-16 05:31 → UNDOADMIN 09-16 05:31 → 4N 09-16 08:08 → EH 09-16 08:26 → 4N 09-16 08:26
PROVIDERS: ADMIT Family Medicine; ATTEND Family Medicine
DX: D64.9 Anemia, unspecified (principal); N39.0 Urinary tract infection, site not specified; I10 Essential (primary) hypertension; E10.65 Type 1 diabetes mellitus with hyperglycemia; K22.719 Barrett's esophagus with dysplasia, unspecified; E03.9 Hypothyroidism, unspecified; I25.10 Atherosclerotic heart disease of native coronary artery without angina pectoris; Z60.2 Problems related to living alone; Z79.01 Long term (current) use of anticoagulants; Z79.4 Long term (current) use of insulin; Z79.899 Other long term (current) drug therapy; Z95.5 Presence of coronary angioplasty implant and graft
CPT/HCPCS: 36415; 80053; 80074; 81001; 82272; 82607; 82728; 82746; 82962; 83036; 83540; 83550; 83735; 84443; 85025; 85045; 85610; 85730; 86850; 86900; 86901; 87040; 96361; 96365; 99285; J0696; J1815; J7030

== ENCOUNTER → 2016-09-15 | Outpatient (CLI) | payer MEDICARE, OTHER ==
[2016-09-15 13:25] LABS: MEAN CORPUSCULAR HEMOGLOBIN 26.1 pg (27.0-33.4); MEAN CORPUSCULAR HGB CONC 33.5 g/dL (32.0-36.0); RED BLOOD COUNT 3.47 10^6/uL (3.72-5.28); RED CELL DISTRIBUTION WIDTH 18.3 % (11.5-14.0); WHITE BLOOD COUNT 14.4 10^3/uL (4.0-10.5)
[2016-09-15 13:49] LABS: MEAN CORPUSCULAR VOLUME 78 fl (80-97)
== END ==
LOC: OD 12:58
PROVIDERS: ATTEND Family Medicine
DX: R53.82 Chronic fatigue, unspecified (principal); D50.9 Iron deficiency anemia, unspecified
CPT/HCPCS: 36415; 82607; 85027

== ENCOUNTER → 2016-11-19 | Outpatient (CLI) | payer MEDICARE, OTHER ==
[2016-11-19 10:27] LABS: ALBUMIN 4.1 g/dL (3.5-5.0); ANION GAP 16 (5-19); BLOOD UREA NITROGEN 25 mg/dL (7-20); CALCIUM 9.7 mg/dL (8.4-10.2); CARBON DIOXIDE 27 mmol/L (22-30); CHLORIDE 97 mmol/L (98-107); CREATININE RESULT 1.35 mg/dL (0.52-1.25); POTASSIUM 5.7 mmol/L (3.6-5.0); SODIUM 139.6 mmol/L (137-145)
[2016-11-19 10:41] LABS: GLUCOSE 436 mg/dL (75-110)
[2016-11-19 17:17] LABS: APPEARANCE,URINE CLEAR
[2016-11-19 17:18] LABS: BILIRUBIN,URINE NEGATIVE (NEGATIVE); GLUCOSE, URINE 500 mg/dL (NEGATIVE); KETONES,URINE NEGATIVE (NEGATIVE); PROTEIN,URINE 100 mg/dL (NEGATIVE); URINE SPECIFIC GRAVITY 1.017; UROBILINOGEN,URINE NEGATIVE mg/dL (<2.0)
[2016-11-19 17:19] LABS: LEUKOCYTE ESTERASE,URINE TRACE (NEGATIVE); NITRITE,URINE NEGATIVE (NEGATIVE)
[2016-11-19 18:53] LABS: URINE CREATININE 28.8 mg/dL (15-278); URINE PROTEIN 54.7 mg/dL (<12)
== END ==
LOC: OD 08:39
PROVIDERS: ATTEND Internal Medicine Nephrology
DX: N18.2 Chronic kidney disease, stage 2 (mild) (principal); R80.9 Proteinuria, unspecified
CPT/HCPCS: 36415; 80048; 81001; 82040; 82570; 84156

== ENCOUNTER → 2016-11-26 | Outpatient (CLI) | payer MEDICARE, OTHER | LOC: OD 13:47 | PROVIDERS: ATTEND Internal Medicine Nephrology | DX: E87.5 Hyperkalemia (principal) | CPT/HCPCS: 36415; 84132 ==

== ENCOUNTER → 2016-11-30 | Outpatient (CLI) | payer MEDICARE, OTHER ==
--- NOTE | 2016-11-30 09:35 | RADIOLOGY REPORT (SQ) ---
EXAM DESCRIPTION: U/S LTD DUPLEX ART/KARIS FLOW COMPLETED DATE/TIME: 11/30/2016 7:44 am REASON FOR STUDY: CKD III (N18.3) N18.3 CHRONIC KIDNEY DISEASE, STAGE 3 (MODERATE) COMPARISON: None. TECHNIQUE: Realtime and static grayscale images acquired. Selected color Doppler, velocities and spe ctral images recorded. LIMITATIONS: Limited visualization of the proximal renal arteries off the abdominal aorta FINDINGS: RIGHT KIDNEY: RENAL ARTERY VELOCITIES: At the hilum 68 cm/sec. Segmental artery velocity 49 cm/sec. RENAL VEIN: Color doppler flow present, patent. VELOCITY RATIO: 0.6. Normal waveforms. KIDNEY: Normal size. No significant pathology. LEFT KIDNEY: RENAL ARTERY VELOCITIES: At the hilum 82 cm/sec. Segmental artery velocity 52 cm/sec. RENAL VEIN: Color doppler flow present, patent. VELOCITY RATIO: 0.7. Normal waveforms. KIDNEY: Normal size. No significant pathology. BLADDER: Normal. OTHER: No other significant finding. IMPRESSION: NO DOPPLER EVIDENCE OF HEMODYNAMICALLY SIGNIFICANT RENAL ARTERY STENOSIS. COMMENT: NORMAL RENAL ARTERY/AORTA VELOCITY RATIO IS LESS THAN OR EQUAL TO 3.5. TECHNICAL DOCUMENTATION: JOB ID: [id number]- All Rights Reserved
== END ==
LOC: RAD 07:09
PROVIDERS: ATTEND Internal Medicine Nephrology
DX: N18.3 Chronic kidney disease, stage 3 (moderate) (principal)
CPT/HCPCS: 93976

== ENCOUNTER → 2017-01-06 | Outpatient (CLI) | payer MEDICARE, OTHER ==
[2017-01-06 10:32] LABS: ABSOLUTE EOSINOPHILS # (AUTO) 0.2 10^3/uL (0.0-0.6); ABSOLUTE LYMPHOCYTES (AUTO) 1.6 10^3/uL (0.5-4.7); ABSOLUTE MONOCYTES (AUTO) 0.7 10^3/uL (0.1-1.4); ABSOLUTE NEUT (AUTO) 8.7 10^3/uL (1.7-8.2); BASOPHILS % (AUTO) 0.3 % (0-2); HEMATOCRIT 33.1 % (36.0-47.0); HEMOGLOBIN 10.6 g/dL (12.0-15.5); HGB HCT DIFFERENCE -1.3; LYMPHOCYTES % (AUTO) 14.1 % (13-45); MEAN CORPUSCULAR HEMOGLOBIN 26.5 pg (27.0-33.4); MEAN CORPUSCULAR VOLUME 83 fl (80-97); RED CELL DISTRIBUTION WIDTH 14.7 % (11.5-14.0); SEGMENTED NEUTROPHILS % (AUTO) 77.6 % (42-78); WHITE BLOOD COUNT 11.2 10^3/uL (4.0-10.5)
[2017-01-06 10:43] LABS: APPEARANCE,URINE CLEAR; BILIRUBIN,URINE NEGATIVE (NEGATIVE); GLUCOSE, URINE 150 mg/dL (NEGATIVE); KETONES,URINE NEGATIVE (NEGATIVE); LEUKOCYTE ESTERASE,URINE NEGATIVE (NEGATIVE); NITRITE,URINE NEGATIVE (NEGATIVE); PROTEIN,URINE 100 mg/dL (NEGATIVE); URINE SPECIFIC GRAVITY 1.009; UROBILINOGEN,URINE NEGATIVE mg/dL (<2.0)
[2017-01-06 11:06] LABS: ANION GAP 12 (5-19); BLOOD UREA NITROGEN 21 mg/dL (7-20); CALCIUM 9.7 mg/dL (8.4-10.2); CARBON DIOXIDE 24 mmol/L (22-30); CHLORIDE 104 mmol/L (98-107); GLUCOSE 146 mg/dL (75-110); MAGNESIUM 1.9 mg/dL (1.6-2.3); POTASSIUM 4.7 mmol/L (3.6-5.0); SODIUM 140.2 mmol/L (137-145)
[2017-01-06 11:12] LABS: ERYTHROCYTE SEDIMENTATION RATE 86 mm/hr (0-30)
[2017-01-06 11:20] LABS: URINE CREATININE 47.5 mg/dL (15-278); URINE PROTEIN 61.1 mg/dL (<12)
[2017-01-06 11:48] LABS: THYROID STIMULATING HORMONE 1.27 uIU/mL (0.47-4.68)
[2017-01-07 06:39] LABS: COMPLEMENT C3 223 mg/dL (82-167); COMPLEMENT C4 63 mg/dL (14-44)
[2017-01-07 07:12] LABS: VITAMIN D 25-HYDROXY 13.6 ng/mL (30.0-100.0)
[2017-01-07 09:13] LABS: PTH INTACT 35 pg/mL (15-65)
[2017-01-07 10:44] LABS: GLOMERULAR BASMENT MEMBRANE AB 5 units (0-20)
[2017-01-07 15:39] LABS: A/G RATIO 0.7 (0.7-1.7); ALPHA-1-GLOBULIN 2 0.3 g/dL (0.0-0.4); GAMMA GLOBULIN 1.3 g/dL (0.4-1.8); PROTEIN TOTAL SERUM 7.2 g/dL (6.0-8.5)
[2017-01-08 15:38] LABS: ANTIPROTEINASE 3 (PR-3) AB <3.5 U/mL (0.0-3.5); CYTOPLASMIC (C-ANCA) <1:20 titer (Neg:<1:20)
[2017-01-11 12:39] LABS: ALDOSTERONE 6.7 ng/dL (0.0-30.0)
[2017-01-12 07:26] LABS: METANEPHRINE 58 pg/mL (0-62); NORMETANEPHRINE 33 pg/mL (0-145)
== END ==
LOC: OD 09:14
PROVIDERS: ATTEND Internal Medicine Nephrology
DX: N18.3 Chronic kidney disease, stage 3 (moderate) (principal); R80.9 Proteinuria, unspecified; R31.29 Other microscopic hematuria; E11.21 Type 2 diabetes mellitus with diabetic nephropathy
CPT/HCPCS: 36415; 80048; 81001; 82040; 82088; 82306; 82533; 82570; 82595; 83516; 83735; 83835; 83970; 84100; 84156; 84165; 84244; 84439; 84443; 85025; 85652; 86038; 86160; 86256

== ENCOUNTER → 2017-01-28 | Outpatient (CLI) | payer MEDICARE, OTHER | LOC: WI 11:13 | PROVIDERS: ATTEND Family Medicine | DX: Z12.31 Encounter for screening mammogram for malignant neoplasm of breast (principal) | CPT/HCPCS: 77063; G0202; 77067 ==

== ENCOUNTER 2017-05-28 18:56 | Observation (INO) | payer MEDICARE, OTHER ==
--- NOTE | 2017-05-28 19:19 | ER Document Report ---
ED Medical Screen (RME) - General Chief Complaint: Chest Pain Stated Complaint: CHEST PAIN, NO BOWEL MOVEMENT Time Seen by Provider: 05/28/17 19:13 Notes: 62-year-old female patient comes emergency room complaining of onset 5 PM today of chest pain. Family checked her blood sugar and blood pressure at home and they were both elevated. Patient reports her she is constipated. Patient and family report that she did have a bowel movement yesterday, but that was the first one she had had in a month. 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 I have greeted and performed a rapid initial assessment of this patient. A comprehensive ED assessment and evaluation of the patient, analysis of test results and completion of the medical decision making process will be conducted by additional ED providers. TRAVEL OUTSIDE OF THE [place] IN LAST 30 DAYS: No - Related Data Allergies/Adverse Reactions: No Known Allergies Allergy (Verified 05/28/17 18:57) Past Medical History - Social History Chew tobacco use (# tins/day): Yes Frequency of alcohol use: None Drug Abuse: None - Past Medical History Cardiac Medical History: Reports: Hx Coronary Artery Disease - STENTS PLACED IN LEGS, Hx Hypercholesterolemia, Hx Hypertension, Hx Peripheral Vascular Disease - Stents placed in legs. Denies: Hx Heart Attack, Hx Pulmonary Embolism Pulmonary Medical History: Denies: Hx Asthma, Hx Bronchitis, Hx COPD, Hx Pneumonia Neurological Medical History: Denies: Hx Cerebrovascular Accident, Hx Seizures Endocrine Medical History: Reports: Hx Diabetes Mellitus Type 1, Hx Diabetes Mellitus Type 2, Hx Hypothyroidism. Denies: Hx Hyperthyroidism Renal/ Medical History: Denies: Hx Peritoneal Dialysis GI Medical History: Reports: Hx Endoscopy. Denies: Hx Cirrhosis, Hx Hepatitis Musculoskeltal Medical History: Denies Hx Arthritis Psychiatric Medical History: Denies: Hx Depression Infectious Medical History: Denies: Hx Hepatitis Past Surgical History: Reports: Hx Appendectomy, Hx Hysterectomy, Hx Vascular Surgery - Right leg artery stent, Other - Cataract surgery - Immunizations Hx Diphtheria, Pertussis, Tetanus Vaccination: Yes Physical Exam - Vital signs Vitals: Temp Pulse Resp BP Pulse Ox 98.5 F 90 16 196/78 H 99 05/28/17 19:11 05/28/17 19:11 05/28/17 19:11 05/28/17 19:11 05/28/17 19:11 Course - Vital Signs Vital signs: Temp Pulse Resp BP Pulse Ox 98.5 F 90 16 196/78 H 99 05/28/17 19:11 05/28/17 19:11 05/28/17 19:11 05/28/17 19:11 05/28/17 19:11
--- NOTE | 2017-05-28 20:08 | RADIOLOGY REPORT (SQ) ---
EXAM DESCRIPTION: ACUTE ABDOMEN SERIES COMPLETED DATE/TIME: 05/28/2017 7:48 pm REASON FOR STUDY: Constipation COMPARISON: None. NUMBER OF VIEWS: Three views. TECHNIQUE: Frontal chest, supine abdomen and upright/decubitus abdomen radiographic images acquired. LIMITATIONS: None. FINDINGS: CHEST: Lungs clear of infiltrates. FREE AIR: None. No abnormal gas collections. BOWEL GAS PATTERN: Nonobstructive pattern. No dilated loops or air fluid levels. CONSTIPATION: marked. CALCIFICATIONS: No suspicious calcifications. HARDWARE: None in the abdomen. SOFT TISSUES: No gross mass or suggestion of organomegaly. BONES: No acute fracture. No worrisome bone lesions. OTHER: No other significant finding. IMPRESSION: NO RADIOGRAPHIC EVIDENCE FOR ACUTE ABDOMINAL DISEASE. CONSTIPATION. TECHNICAL DOCUMENTATION: JOB ID: [id number] [employer]- All Rights Reserved
[2017-05-28 20:16] LABS: ABSOLUTE BASOPHILS # (AUTO) 0.1 10^3/uL (0.0-0.2); ABSOLUTE EOSINOPHILS # (AUTO) 0.2 10^3/uL (0.0-0.6); ABSOLUTE LYMPHOCYTES (AUTO) 2.1 10^3/uL (0.5-4.7); ABSOLUTE MONOCYTES (AUTO) 0.6 10^3/uL (0.1-1.4); ABSOLUTE NEUT (AUTO) 9.4 10^3/uL (1.7-8.2); BASOPHILS % (AUTO) 0.5 % (0-2); EOSINOPHILS % (AUTO) 1.4 % (0-6); HEMATOCRIT 33.5 % (36.0-47.0); HGB HCT DIFFERENCE -0.5; LYMPHOCYTES % (AUTO) 17.3 % (13-45); MEAN CORPUSCULAR HEMOGLOBIN 26.1 pg (27.0-33.4); MEAN CORPUSCULAR HGB CONC 32.7 g/dL (32.0-36.0); MEAN CORPUSCULAR VOLUME 80 fl (80-97); MONOCYTES % (AUTO) 5.1 % (3-13); RED CELL DISTRIBUTION WIDTH 15.8 % (11.5-14.0); SEGMENTED NEUTROPHILS % (AUTO) 75.7 % (42-78); WHITE BLOOD COUNT 12.4 10^3/uL (4.0-10.5)
[2017-05-28 20:28] LABS: ALANINE AMINOTRANSFERASE 30 U/L (9-52); ALBUMIN 3.8 g/dL (3.5-5.0); ALKALINE PHOSPHATASE 158 U/L (38-126); ANION GAP 10 (5-19); ASPARTATE AMINO TRANSFERASE 27 U/L (14-36); BILIRUBIN,DIRECT 0.3 mg/dL (0.0-0.4); BILIRUBIN,TOTAL 0.3 mg/dL (0.2-1.3); BLOOD UREA NITROGEN 14 mg/dL (7-20); CALCIUM 8.7 mg/dL (8.4-10.2); CARBON DIOXIDE 27 mmol/L (22-30); CHLORIDE 103 mmol/L (98-107); CREATINE KINASE 117 U/L (30-135); GLUCOSE 261 mg/dL (75-110); SODIUM 139.6 mmol/L (137-145); TOTAL PROTEIN 7.4 g/dL (6.3-8.2)
--- NOTE | 2017-05-28 20:44 | ER Document Report ---
ED Cardiac - General Chief Complaint: Chest Pain Stated Complaint: CHEST PAIN, NO BOWEL MOVEMENT Time Seen by Provider: 05/28/17 19:13 Notes: 62 years old female presents today with a brief episode of left precordial sharp stabbing pain lasted for about 45 minutes and then subsided. She states it was not radiating not associated with any left arm numbness tingling sensation nausea vomiting palpitation or diaphoresis. Denies any difficulty in breathing at that time. Currently feeling comfortable. According to the daughter she has not had a good bowel movement per month and having abdominal discomfort now. TRAVEL OUTSIDE OF THE [place] IN LAST 30 DAYS: No - Related Data Allergies/Adverse Reactions: No Known Allergies Allergy (Verified 05/28/17 18:57) Past Medical History - Social History Smoking Status: Never Smoker Chew tobacco use (# tins/day): Yes Frequency of alcohol use: None Drug Abuse: None Family History: DM, Hypertension, Reviewed & Not Pertinent Patient has suicidal ideation: No Patient has homicidal ideation: No - Past Medical History Cardiac Medical History: Reports: Hx Coronary Artery Disease - STENTS PLACED IN LEGS, Hx Hypercholesterolemia, Hx Hypertension, Hx Peripheral Vascular Disease - Stents placed in legs. Denies: Hx Heart Attack, Hx Pulmonary Embolism Pulmonary Medical History: Denies: Hx Asthma, Hx Bronchitis, Hx COPD, Hx Pneumonia Neurological Medical History: Denies: Hx Cerebrovascular Accident, Hx Seizures Endocrine Medical History: Reports: Hx Diabetes Mellitus Type 1, Hx Diabetes Mellitus Type 2, Hx Hypothyroidism. Denies: Hx Hyperthyroidism Renal/ Medical History: Denies: Hx Peritoneal Dialysis GI Medical History: Reports: Hx Endoscopy. Denies: Hx Cirrhosis, Hx Hepatitis Musculoskeltal Medical History: Denies Hx Arthritis Psychiatric Medical History: Denies: Hx Depression Infectious Medical History: Denies: Hx Hepatitis Past Surgical History: Reports: Hx Appendectomy, Hx Hysterectomy, Hx Vascular Surgery - Right leg artery stent, Other - Cataract surgery - Immunizations Hx Diphtheria, Pertussis, Tetanus Vaccination: Yes Review of Systems - Review of Systems Notes: REVIEW OF SYSTEMS: CONSTITUTIONAL : Denies fever, chills, or sweats. Denies recent illness. EENT: Denies eye, ear, throat, or mouth pain or symptoms. Denies nasal or sinus congestion or discharge. Denies throat, tongue, or mouth swelling or difficulty swallowing. CARDIOVASCULAR: Denies chest pain. Denies palpitations or racing or irregular heart beat. Denies ankle edema. RESPIRATORY: Denies cough, cold, or chest congestion. Denies shortness of breath, difficulty breathing, or wheezing. GASTROINTESTINAL: Denies abdominal pain or distention. Denies nausea, vomiting , or diarrhea. Denies blood in vomitus, stools, or per rectum. Denies black, tarry stools. Denies constipation. GENITOURINARY: Denies difficulty urinating, painful urination, burning, frequency, blood in urine, or discharge. FEMALE GENITOURINARY: Denies vaginal bleeding, heavy or abnormal periods, irregular periods. Denies vaginal discharge or odor. MUSCULOSKELETAL: Denies back or neck pain or stiffness. Denies joint pain or swelling. SKIN: Denies rash, lesions or sores. HEMATOLOGIC : Denies easy bruising or bleeding. LYMPHATIC: Denies swollen, enlarged glands. NEUROLOGICAL: Denies confusion or altered mental status. Denies passing out or loss of consciousness. Denies dizziness or lightheadedness. Denies headache. Denies weakness or paralysis or loss of use of either side. Denies problems with gait or speech. Denies sensory loss, numbness, or tingling. Denies seizures. PSYCHIATRIC: Denies anxiety or stress. Denies depression, suicidal ideation, or homicidal ideation. ALL OTHER SYSTEMS REVIEWED AND NEGATIVE. PHYSICAL EXAMINATION: GENERAL: Well-appearing, well-nourished and in no acute distress. HEAD: Atraumatic, normocephalic. EYES: Pupils equal round and reactive to light, extraocular movements intact, conjunctiva are normal. ENT: Nares patent, oropharynx clear without exudates. Moist mucous membranes. NECK: Normal range of motion, supple without lymphadenopathy LUNGS: Breath sounds clear to auscultation bilaterally and equal. No wheezes rales or rhonchi. HEART: Regular rate and rhythm without murmurs ABDOMEN: Soft, nontender, nondistended abdomen. No guarding, no rebound. No masses appreciated. Female : deferred Musculoskeletal: Normal range of motion, no pitting or edema. No cyanosis. NEUROLOGICAL: Cranial nerves grossly intact. Normal speech, normal gait. Normal sensory, motor exams PSYCH: Normal mood, normal affect. SKIN: Warm, Dry, normal turgor, no rashes or lesions noted. Dictation was performed using Moc[employer] recognition software not in any acute distress Physical Exam - Vital signs Vitals: Temp Pulse Resp BP Pulse Ox 98.5 F 90 16 196/78 H 99 05/28/17 19:11 05/28/17 19:11 05/28/17 19:11 05/28/17 19:11 05/28/17 19:11 Course - Vital Signs Vital signs: Temp Pulse Resp BP Pulse Ox 98.5 F 90 18 199/86 H 99 05/28/17 19:11 05/28/17 19:11 05/28/17 22:01 05/28/17 22:01 05/28/17 22:01 - Laboratory Result Diagrams: 05/28/17 21:00 05/28/17 21:00 Laboratory results interpreted by me: 05/28/17 05/28/17 05/28/17 19:36 19:36 21:00 WBC 12.4 H 13.1 H Hgb 11.0 L 10.9 L Hct 33.5 L 33.1 L MCH 26.1 L 26.2 L RDW 15.8 H 16.0 H Absolute Neutrophils 9.4 H 9.1 H Glucose 261 H Alkaline Phosphatase 158 H Urine Protein Urine Glucose (UA) Urine Blood Ur Leukocyte Esterase 05/28/17 05/28/17 21:00 21:30 WBC Hgb Hct MCH RDW Absolute Neutrophils Glucose 137 H Alkaline Phosphatase 157 H Urine Protein >=500 H Urine Glucose (UA) >=500 H Urine Blood SMALL H Ur Leukocyte Esterase MODERATE H - EKG Interpretation by Me EKG shows normal: Sinus rhythm - At the rate of 90 bpm normal axis no acute ST elevation ST depression T-wave inversion noted. Normal cardiogram Critical Care Note - Critical Care Note Total time excluding time spent on procedures (mins): 30 Comments: Cardiac monitoring, review of EKG chest x-ray, discussed the case with the hospitalist and admitted. Discharge - Discharge Clinical Impression: Chest pain, rule out acute myocardial infarction UTI (urinary tract infection) Qualifiers: Urinary tract infection type: acute cystitis Hematuria presence: without hematuria Qualified Code(s): N30.00 - Acute cystitis without hematuria Constipation Qualifiers: Constipation type: slow transit constipation Qualified Code(s): K59.01 - Slow transit constipation Condition: Serious Disposition: ADMITTED INPATIENT Admitting Provider: Hospitalist Unit Admitted: IMCU Referrals: PAWAN BRODY MD [Primary Care Provider] - Follow up as needed
[2017-05-28 21:18] LABS: ABSOLUTE BASOPHILS # (AUTO) 0.2 10^3/uL (0.0-0.2); ABSOLUTE EOSINOPHILS # (AUTO) 0.2 10^3/uL (0.0-0.6); ABSOLUTE LYMPHOCYTES (AUTO) 2.7 10^3/uL (0.5-4.7); ABSOLUTE MONOCYTES (AUTO) 0.9 10^3/uL (0.1-1.4); ABSOLUTE NEUT (AUTO) 9.1 10^3/uL (1.7-8.2); BASOPHILS % (AUTO) 1.3 % (0-2); EOSINOPHILS % (AUTO) 1.7 % (0-6); HEMATOCRIT 33.1 % (36.0-47.0); HEMOGLOBIN 10.9 g/dL (12.0-15.5); HGB HCT DIFFERENCE -0.4; LYMPHOCYTES % (AUTO) 20.8 % (13-45); MEAN CORPUSCULAR HEMOGLOBIN 26.2 pg (27.0-33.4); MEAN CORPUSCULAR VOLUME 80 fl (80-97); MONOCYTES % (AUTO) 6.7 % (3-13); RED BLOOD COUNT 4.17 10^6/uL (3.72-5.28); SEGMENTED NEUTROPHILS % (AUTO) 69.5 % (42-78); WHITE BLOOD COUNT 13.1 10^3/uL (4.0-10.5)
[2017-05-28 21:29] LABS: ALANINE AMINOTRANSFERASE 33 U/L (9-52); ALBUMIN 3.7 g/dL (3.5-5.0); ALKALINE PHOSPHATASE 157 U/L (38-126); ANION GAP 11 (5-19); ASPARTATE AMINO TRANSFERASE 18 U/L (14-36); BILIRUBIN,DIRECT 0.1 mg/dL (0.0-0.4); BILIRUBIN,TOTAL 0.2 mg/dL (0.2-1.3); BLOOD UREA NITROGEN 14 mg/dL (7-20); CALCIUM 8.7 mg/dL (8.4-10.2); CARBON DIOXIDE 25 mmol/L (22-30); CHLORIDE 105 mmol/L (98-107); CREATININE RESULT 0.89 mg/dL (0.52-1.25); GLUCOSE 137 mg/dL (75-110); POTASSIUM 3.7 mmol/L (3.6-5.0); SODIUM 141.3 mmol/L (137-145); TOTAL PROTEIN 6.8 g/dL (6.3-8.2)
[2017-05-28 22:23] LABS: APPEARANCE,URINE CLEAR; BILIRUBIN,URINE NEGATIVE (NEGATIVE); GLUCOSE, URINE >=500 mg/dL (NEGATIVE); KETONES,URINE NEGATIVE (NEGATIVE); LEUKOCYTE ESTERASE,URINE MODERATE (NEGATIVE); NITRITE,URINE NEGATIVE (NEGATIVE); PROTEIN,URINE >=500 mg/dL (NEGATIVE); URINE SPECIFIC GRAVITY 1.008; UROBILINOGEN,URINE NEGATIVE mg/dL (<2.0)
[2017-05-29] MEDS ORDERED: NITROGLYCERIN 0.4 MG/TAB 25 TAB/BOTTLE SL PRN (00:03)
[2017-05-29] MEDS ORDERED: MORPHINE SULFATE 10 MG/ML INJ IV PRN (00:03)
[2017-05-29] MEDS ORDERED: ASPIRIN 81 MG TABLET, CHEWABLE PO ONE (00:03)
[2017-05-29] MEDS ORDERED: DIAZEPAM 5 MG TABLET PO PRN (00:03)
[2017-05-29] MEDS ORDERED: ONDANSETRON HCL INJ/PF 4 MG/2 ML SDV IV PRN (00:03)
[2017-05-29] MEDS ORDERED: LANSOPRAZOLE 15 MG TAB.RAP.DR PO ONE (00:03)
[2017-05-29] MEDS ORDERED: ASPIRIN 325 MG TABLET PO ONE (00:07)
[2017-05-29] MEDS ORDERED: ATORVASTATIN CALCIUM 40 MG TABLET PO ONE (00:30)
[2017-05-29] MEDS ORDERED: ENOXAPARIN SODIUM INJ 100 MG/1 ML DISP.SYRIN SUBCUT ONE (00:30)
[2017-05-29] MEDS: NORMAL SALINE 1000 ML 1,000 ML IV PRN (00:52)
[2017-05-29] MEDS ORDERED: CLONIDINE HCL 0.2 MG TABLET PO ONE (00:55)
[2017-05-29] MEDS ORDERED: ZOLPIDEM TARTRATE 5 MG TABLET PO ONE (00:57)
[2017-05-29] MEDS ORDERED: INSULIN GLARGINE,HUM.REC.ANLOG 1,000 UNIT/10 ML UNIT SUBCUT ONE ×2 (00:58→23:26)
[2017-05-29] MEDS ORDERED: CEFTRIAXONE 1 GM/D5W RTU 1 GM/50 ML RTUPB IV ONE (01:00)
[2017-05-29] MEDS ORDERED: GLUCAGON,HUMAN RECOMB 1 MG INJ IM PRN (01:01)
[2017-05-29] MEDS ORDERED: DEXTROSE 40% GEL 15 GM TUBE PO PRN ×2 (01:01)
[2017-05-29] MEDS ORDERED: DEXTROSE 50%-WATER 25 GM/50 ML DISP.SYRIN IV PRN ×2 (01:01)
[2017-05-29] MEDS ORDERED: BISACODYL 5 MG TABEC PO ONE ×2 (01:05→23:27)
[2017-05-29] MEDS ORDERED: LOSARTAN POTASSIUM 50 MG TABLET PO ONE (01:15)
[2017-05-29] MEDS ORDERED: PREGABALIN 75 MG CAPSULE PO ONE (01:15)
[2017-05-29] MEDS ORDERED: SENNOSIDES/DOCUSATE 8.6-50 MG 1 EACH TABLET PO SCH (01:15)
[2017-05-29] MEDS ORDERED: LEVOTHYROXINE SODIUM 0.025 MG TABLET PO ONE (01:15)
--- NOTE | 2017-05-29 01:34 | PDOC H&P ---
History of Present Illness Admission Date/PCP: 05/29/17 00:12 PAWAN BRODY MD History of Present Illness: ADAM RIVAS is a 62 year old female with past medical history of diabetes mellitus, hypertension, hyperlipidemia, peripheral vascular disease, Raza's esophagus, peptic ulcer disease who presents to the emergency department with complaints of chest and abdominal pain. History is primarily obtained from her daughter who is present at bedside as patient does not wish to be in the hospital. Patient apparently at 5 PM giving began complaining of chest pain at the center of her chest. She was associated with some shortness of breath. There was no radiation of her pain. She denied any associated nausea, vomiting, diaphoresis or metallic taste in her mouth. The pain subsided on its own. Patient reports that she has been very constipated. Past Medical History Cardiac Medical History: Reports: Hyperlipidema, Hypertension, Peripheral Vascular Disease - Stents placed in legs. Denies: Myocardial Infarction, Pulmonary Embolism Pulmonary Medical History: Denies: Asthma, Bronchitis, Chronic Obstructive Pulmonary Disease (COPD), Pneumonia Neurological Medical History: Denies: Seizures Endocrine Medical History: Reports: Diabetes Mellitus Type 2, Hypothyroidism Denies: Hyperthyroidism GI Medical History: Denies: Cirrhosis, Hepatitis Musculoskeltal Medical History: Denies: Arthritis Psychiatric Medical History: Reports: Dementia Denies: Depression Hematology: Denies: Anemia Past Surgical History Past Surgical History: Reports: Appendectomy, Hysterectomy, Vascular Surgery - Right leg artery stent, Other - Cataract surgery Social History Smoking Status: Never Smoker Frequency of Alcohol Use: None Hx Recreational Drug Use: No Drugs: None Hx Prescription Drug Abuse: No - Advance Directive Resuscitation Status: Full Code Surrogate healthcare decision maker:: Alyssia Mondragon, daughter Family History Family History: CAD, DM, Hypertension Parental Family History Reviewed: Yes Children Family History Reviewed: Yes Sibling(s) Family History Reviewed.: Yes Medication/Allergy Home Medications: Clonidine HCl [Catapres 0.1 mg Tablet] 0.1 mg PO Q12 04/16/15 Clopidogrel Bisulfate [Clopidogrel] 75 mg PO DAILY 04/16/15 Docusate Sodium [Colace 100 mg Capsule] 100 mg PO BID #0 capsule 04/16/15 Insulin Glargine,Hum.rec.anlog [Lantus] 80 unit SQ HSP #0 04/16/15 Insulin Lispro [Humalog] See Protocol SQ ACHS PRN 04/16/15 Levothyroxine Sodium [Synthroid 0.025 mg Tablet] 0.025 mg PO DAILY #30 tablet Losartan Potassium 100 mg PO HSP #0 04/16/15 Acetaminophen/Diphenhydramine [Acetaminophen-Diphenhyd 500-25] 1 each PO QHS 10/28 Clonidine HCl [Catapres 0.2 mg Tablet] 0.2 mg PO Q12 09/16/16 Clopidogrel Bisulfate [Clopidogrel] 75 mg PO DAILY 09/16/16 Duloxetine HCl [Cymbalta] 120 mg PO QHS 09/16/16 Ferrous Sulfate [Feosol 325 mg Tablet] 325 mg PO BID #60 tab 09/16/16 Insulin Aspart [Novolog Insulin (Aspart) 100 unit/mL] 0 unit SUBCUT .SLD SCALE 09/16/16 Insulin Glargine,Hum.rec.anlog [Lantus] 60 unit SQ QHS 09/16/16 Levothyroxine Sodium [Synthroid 0.025 mg Tablet] 25 mcg PO QAM 09/16/16 Losartan Potassium [Cozaar 100 mg Tablet] 100 mg PO QHS 09/16/16 Memantine HCl [Namenda 10 mg Tablet] 10 mg PO BID 09/16/16 Nifedipine [Nifedipine ER] 60 mg PO QHS 09/16/16 Omeprazole 20 mg PO DAILY 09/16/16 Pregabalin [Lyrica] 150 mg PO QHS 09/16/16 Sulfamethoxazole/Trimethoprim [Bactrim Ds Tablet] 1 each PO BID #6 tablet Allergies/Adverse Reactions: No Known Allergies Allergy (Verified 05/28/17 18:57) Review of Systems Constitutional: ABSENT: chills, fever(s), headache(s), weight gain, weight loss Eyes: ABSENT: visual disturbances Ears: ABSENT: hearing changes Cardiovascular: PRESENT: chest pain. ABSENT: dyspnea on exertion, edema, orthropnea, palpitations Respiratory: ABSENT: cough, hemoptysis Gastrointestinal: PRESENT: abdominal pain, bloating, constipation. ABSENT: diarrhea, hematemesis, hematochezia, nausea, vomiting Genitourinary: ABSENT: dysuria, hematuria Musculoskeletal: ABSENT: joint swelling Integumentary: ABSENT: rash, wounds Neurological: ABSENT: abnormal gait, abnormal speech, confusion, dizziness, focal weakness, syncope Psychiatric: ABSENT: anxiety, depression, homidical ideation, suicidal ideation Endocrine: ABSENT: cold intolerance, heat intolerance, polydipsia, polyuria Hematologic/Lymphatic: ABSENT: easy bleeding, easy bruising Physical Exam Vital Signs: Temp Pulse Resp BP Pulse Ox 98.5 F 90 18 184/82 H 99 05/28/17 19:11 05/28/17 19:11 05/29/17 00:01 05/29/17 00:01 05/29/17 00:01 General appearance: PRESENT: no acute distress, well-developed, well-nourished Head exam: PRESENT: atraumatic, normocephalic Eye exam: PRESENT: conjunctiva pink, EOMI, PERRLA. ABSENT: scleral icterus Ear exam: PRESENT: normal external ear exam Mouth exam: PRESENT: moist, tongue midline Neck exam: ABSENT: JVD, lymphadenopathy, thyromegaly, tracheal deviation Respiratory exam: PRESENT: clear to auscultation nano. ABSENT: rales, rhonchi, wheezes Cardiovascular exam: PRESENT: RRR. ABSENT: diastolic murmur, rubs, systolic murmur Pulses: PRESENT: normal dorsalis pedis pul Vascular exam: PRESENT: normal capillary refill GI/Abdominal exam: PRESENT: distended, hypoactive bowel sounds, soft. ABSENT: firm, guarding, mass, organolmegaly, rebound, rigid, tenderness Rectal exam: PRESENT: deferred Extremities exam: PRESENT: full ROM. ABSENT: calf tenderness, clubbing, pedal edema Neurological exam: PRESENT: alert, awake, oriented to person, oriented to place , oriented to time, oriented to situation, CN II-XII grossly intact. ABSENT: motor sensory deficit Psychiatric exam: PRESENT: depressed, flat affect. ABSENT: homicidal ideation, suicidal ideation Skin exam: PRESENT: dry, intact, warm. ABSENT: cyanosis, rash Results Laboratory Results: 05/28/17 05/28/17 05/28/17 19:36 21:00 21:00 WBC 13.1 H Hgb 10.9 L Hct 33.1 L Plt Count 220 Sodium 141.3 Potassium 3.7 BUN 14 Creatinine 0.89 Glucose 137 H Calcium 8.7 Total Bilirubin 0.2 Direct Bilirubin 0.1 AST 18 ALT 33 Alkaline Phosphatase 157 H CK-MB (CK-2) Troponin I 0.042 Total Protein 6.8 Albumin 3.7 Urine Protein Urine Glucose (UA) Urine Blood Ur Leukocyte Esterase Urine WBC (Auto) 05/28/17 05/28/17 05/28/17 21:00 21:30 22:55 WBC Hgb Hct Plt Count Sodium Potassium BUN Creatinine Glucose Calcium Total Bilirubin Direct Bilirubin AST ALT Alkaline Phosphatase CK-MB (CK-2) 1.75 Troponin I 0.058 Total Protein Albumin Urine Protein >=500 H Urine Glucose (UA) >=500 H Urine Blood SMALL H Ur Leukocyte Esterase MODERATE H Urine WBC (Auto) 17 EKG Comments: LVH, no acute ST segment changes Impressions: Acute Abdomen Series 05/28/17 19:17 IMPRESSION: NO RADIOGRAPHIC EVIDENCE FOR ACUTE ABDOMINAL DISEASE. CONSTIPATION. Status: Imported from PACS Assessment & Plan - Diagnosis (1) Chest pain, rule out acute myocardial infarction Is this a current diagnosis for this admission?: Yes Plan: Place patient on telemetry observation. Monitor for arrhythmia or ST segment changes. Initiate patient on treatment dose Lovenox. Initiate patient on metoprolol, Cozaar Lipitor, oxygen, nitroglycerin, morphine , and aspirin. Serial cardiac enzymes every 6 hours. Testing lipid panel in the morning. Will obtain stress test tomorrow due to patient's risk factors and concerning history of chest pain. (2) Constipation Qualifiers: Constipation type: slow transit constipation Qualified Code(s): K59.01 - Slow transit constipation Is this a current diagnosis for this admission?: Yes Plan: Place patient on Colace, senna, and give one-time dose of Dulcolax. If this fails to produce a bowel movement, will give her magnesium citrate in the morning (3) Urinary tract infection Qualifiers: Urinary tract infection type: acute cystitis Hematuria presence: without hematuria Qualified Code(s): N30.00 - Acute cystitis without hematuria Is this a current diagnosis for this admission?: Yes Plan: Rocephin and send culture (4) Anemia Qualifiers: Anemia type: unspecified type Qualified Code(s): D64.9 - Anemia, unspecified Is this a current diagnosis for this admission?: Yes Plan: In light of her bowel issues and with her past history of Raza's esophagitis , recommend outpatient endoscopy both upper and lower (5) Diabetes mellitus type 1, uncontrolled Qualifiers: Diabetes mellitus complication status: with circulatory complication Diabetes mellitus complication detail: with peripheral angiopathy without gangrene Qualified Code(s): E10.51 - Type 1 diabetes mellitus with diabetic peripheral angiopathy without gangrene; E10.65 - Type 1 diabetes mellitus with hyperglycemia; E10.65 - Type 1 diabetes mellitus with hyperglycemia; E10.65 - Type 1 diabetes mellitus with hyperglycemia; E10.65 - Type 1 diabetes mellitus with hyperglycemia Is this a current diagnosis for this admission?: Yes Plan: Continue Lantus and sliding scale. (6) Raza esophagus Qualifiers: Raza's esophagus type: with dysplasia of unspecified degree Qualified Code(s): K22.719 - Raza's esophagus with dysplasia, unspecified Is this a current diagnosis for this admission?: Yes Plan: Continue PPI - Time Time Spent: 30 to 50 Minutes Medications reviewed and adjusted accordingly: Yes Anticipated discharge: Home Within: within 48 hours - Inpatient Certification Based on my medical assessment, after consideration of the patient's comorbidities, presenting symptoms, or acuity I expect that the services needed warrant INPATIENT care.: No I certify that my determination is in accordance with my understanding of Medicare's requirements for reasonable and necessary INPATIENT services [42 CFR 412.3e].: No Medical Necessity: Need For Continuous Telemetry Monitoring Post Hospital Care: D/C Wet Room Supervisor Documentation
[2017-05-29 04:01] LABS: CREATINE KINASE MB 1.5 ng/mL (<4.55); TROPONIN I 0.049 ng/mL
--- NOTE | 2017-05-29 05:38 | EKG REPORT ---
SEVERITY:- ABNORMAL ECG - SINUS RHYTHM PROBABLE LEFT ATRIAL ABNORMALITY LVH WITH SECONDARY REPOLARIZATION ABNORMALITY : Confirmed by: Yassine Fisher 29-May-2017 05:38:00
[2017-05-29] MEDS: LEVOTHYROXINE SODIUM 0.025 MG TABLET PO SCH (05:52)
[2017-05-29] MEDS: CLONIDINE HCL 0.2 MG TABLET PO SCH ×3 (05:52→21:13)
[2017-05-29] MEDS: DOCUSATE SODIUM 100 MG CAPSULE PO SCH ×2 (09:04→17:21)
[2017-05-29] MEDS: MAGNESIUM CITRATE 296 ML BOTTLE PO SCH (09:04)
[2017-05-29] MEDS: CEFTRIAXONE 1 GM/D5W RTU 1 GM/50 ML RTUPB IV SCH (09:04)
[2017-05-29] MEDS: PREGABALIN 75 MG CAPSULE PO SCH ×2 (09:05→17:20)
[2017-05-29] MEDS: CLOPIDOGREL BISULFATE 75 MG TABLET PO SCH (09:05)
[2017-05-29] MEDS: ASPIRIN 325 MG TABLET, ENT COATED PO SCH (09:05)
[2017-05-29] MEDS: ENOXAPARIN SODIUM INJ 100 MG/1 ML DISP.SYRIN SUBCUT SCH ×2 (09:06→21:13)
[2017-05-29] MEDS ORDERED: DOCUSATE SODIUM 100 MG CAPSULE PO SCH (10:00)
[2017-05-29 10:37] LABS: CREATINE KINASE MB 1.32 ng/mL (<4.55); TROPONIN I 0.047 ng/mL
[2017-05-29] MEDS ORDERED: REGADENOSON INJ 0.4 MG/5 ML DISP.SYRIN IV ONE (11:34)
--- NOTE | 2017-05-29 13:08 | DRAGON STRESS TEST REPORT ---
Intravenous Lexiscan Cardiolite stress test using single photon emmision computerized tomography. Date of procedure: 05/29/2017. Ordering Provider: Dr. Baptiste. Patient's status: In Patient. Indication: Chest pain. Coronary risk factors: Age, diabetes mellitus, and dyslipidemia. Resting EKG: Sinus Rhythm. Diffuse T wave changes. Stress EKG: No changes of ischemia. The patient had no chest pain or discomfort, and there were no arrhythmias seen. Reason for termination: Protocol. Conclusions: Normal EKG and hemodynamic response to IV Lexiscan. Nuclear data: At rest the patient was given 13.61 millicuries of technetium 99m sestamibi injected intravenously. As per protocol rest non gated SPECT images were obtained. Subsequently the patient was given intravenous Lexiscan at a dose of 0.4 mg in 5 mL intravenously, followed by flush with normal saline. Subsequently the stress dose of 42.8 millicuries of technetium 99m sestamibi was injected intravenously. As per protocol stress gated images were obtained. Nuclear interpretation: Review of images showed that there was motion artifact. In spite of this all segments of the myocardium had normal perfusion at rest, and normal perfusion post stress with IV Lexiscan. All segments of the myocardium had normal motion, contraction, and thickening by gated study. T. I D. ratio was normal at 1.05. Computer read rest, and stress left ventricular ejection fraction were 59 %, and 47 %, respectively. Visually both the stress and rest ejection fractions were normal, and greater than 55%. Conclusion: 1. There is no scintigraphic evidence of Lexiscan induced myocardial ischemia. 2. There is no scintigraphic evidence of myocardial infarction/scar. Recommendations: Aggressive risk factor modification, and treating the underlying co- morbidities . [facility]
--- NOTE | 2017-05-29 14:21 | Progress Note ---
Provider Note Provider Note: Patient seen. Family at bedside. States patient was very confused last night and has times where she often gets confused. She is a chronic constipation. Patient was admitted for chest pain she was also found to have a urinary tract infection and started on ceftriaxone. Suspect patient's UTIs from urinary retention secondary to her profoundly severe constipation via abdominal x-ray. Suspect patient was not having a lot of chest pain is much as she was having abdominal pain. Plan to keep patient again overnight she is in agreement so she can feel better. Denies any further chest pain, nausea vomiting or diarrhea. Patient tolerated one bottle of magnesium citrate. Patient states this there a way you can pump this out of me.
[2017-05-29] MEDS ORDERED: NA PHOS,M-B/NA PHOS,DI-BA (ADULT) 133 ML ENEMA PR ONE (15:00)
[2017-05-29] MEDS ORDERED: BISACODYL 10 MG SUPP.RECT PR ONE (15:00)
[2017-05-29 15:46] LABS: CREATINE KINASE MB 1.3 ng/mL (<4.55); TROPONIN I 0.044 ng/mL
[2017-05-29] MEDS: INSULIN LISPRO 100 UNIT/ML 3 ML VIAL SUBCUT PRN (17:22)
[2017-05-29] MEDS ORDERED: NA PHOS,M-B/NA PHOS,DI-BA (ADULT) 133 ML ENEMA PR SCH (22:00)
[2017-05-29] MEDS ORDERED: LOSARTAN POTASSIUM 50 MG TABLET PO SCH (22:00)
[2017-05-29] MEDS ORDERED: ATORVASTATIN CALCIUM 40 MG TABLET PO SCH (22:00)
--- NOTE | 2017-05-29 23:05 | EKG REPORT ---
SEVERITY:- ABNORMAL ECG - SINUS RHYTHM ABNRM R PROG, CONSIDER ASMI OR LEAD PLACEMENT BORDERLINE T ABNORMALITIES, DIFFUSE LEADS : Confirmed by: Yassine Fisher 29-May-2017 23:04:18
[2017-05-29] MEDS ORDERED: NITROGLYCERIN 2% OINTMENT 1 GM PACKET TP ONE (23:24)
[2017-05-30] MEDS ORDERED: SORBITOL 70% SOLUTION 30 ML UDC PR ONE (00:45)
[2017-05-30] MEDS ORDERED: MAGNESIUM HYDROXIDE SUSP 30 ML UDCUP PR ONE (00:45)
[2017-05-30] MEDS ORDERED: MINERAL OIL 30 ML UDCUP PR ONE (00:45)
[2017-05-30] MEDS ORDERED: GLYCERIN 99.5% (ANHYDROUS) 177 ML PR ONE (00:45)
[2017-05-30] MEDS: CLONIDINE HCL 0.2 MG TABLET PO SCH ×2 (05:53→15:12)
[2017-05-30] MEDS: LEVOTHYROXINE SODIUM 0.025 MG TABLET PO SCH (05:54)
[2017-05-30] MEDS: NITROGLYCERIN 2% OINTMENT 1 GM PACKET TP SCH ×2 (05:54→13:02)
[2017-05-30 06:51] LABS: CHOLESTEROL 267.57 mg/dL (0-200); CREATINE KINASE 58 U/L (30-135); Direct HDL 34 mg/dL (>40); TRIGLYCERIDES 289 mg/dL (<150)
[2017-05-30 07:02] LABS: DIRECT LDL 163 mg/dL (<100)
[2017-05-30 07:03] LABS: VLDL CHOLESTEROL 57.8 mg/dL (10-31)
[2017-05-30] MEDS ORDERED: VERAPAMIL HCL 240 MG TABLET.SA PO SCH (10:00)
[2017-05-30] MEDS ORDERED: MEMANTINE HCL 10 MG TABLET PO SCH (10:00)
[2017-05-30] MEDS ORDERED: DOCUSATE SODIUM 100 MG CAPSULE PO SCH (10:00)
[2017-05-30] MEDS ORDERED: (PENDING PHARMACY ID) (Verapamil Hcl [Verapamil Er] 240 MG) PO SCH (10:00)
[2017-05-30] MEDS: PREGABALIN 75 MG CAPSULE PO SCH (10:35)
[2017-05-30] MEDS: ENOXAPARIN SODIUM INJ 100 MG/1 ML DISP.SYRIN SUBCUT SCH (10:35)
[2017-05-30] MEDS: ASPIRIN 325 MG TABLET, ENT COATED PO SCH (10:36)
[2017-05-30] MEDS: DOCUSATE SODIUM 100 MG CAPSULE PO SCH (10:38)
[2017-05-30] MEDS: CLOPIDOGREL BISULFATE 75 MG TABLET PO SCH (10:38)
[2017-05-30] MEDS: MAGNESIUM CITRATE 296 ML BOTTLE PO SCH (10:39)
[2017-05-30] MEDS: CEFTRIAXONE 1 GM/D5W RTU 1 GM/50 ML RTUPB IV SCH (10:39)
[2017-05-30] MEDS: NORMAL SALINE 1000 ML 1,000 ML IV PRN (10:40)
[2017-05-30] MEDS: INSULIN LISPRO 100 UNIT/ML 3 ML VIAL SUBCUT PRN (13:02)
[2017-05-30 15:01] VITALS: BP 151/63
--- NOTE | 2017-05-30 16:47 | PDOC DISCHARGE SUMMARY ---
General - Admit/Disc Date/PCP Admission Date/Primary Care Provider: 05/29/17 00:12 PAWAN BRODY MD Discharge Date: 05/30/17 - Discharge Diagnosis (1) Chest pain, rule out acute myocardial infarction Is this a current diagnosis for this admission?: Yes Summary: Patient had acute onset substernal decided in the ER. She was brought in and had a stress test by Dr. Chandler. Please see report for full narrative. No ischemic changes were noted. Patient was medically necessary to be discharged home however due to her severe fecal impairment in constipation was worried to send her out despite aggressive bowel regimen for her chronic constipation. Discharge was held patient had good bowel movements and feels much better and ready to go home. Blood pressure mildly elevated today recommend close follow- up with her primary care in the next day or so for blood pressure recheck nurse visit. Follow-up with her PCP in 1 week (2) Constipation Is this a current diagnosis for this admission?: Yes Summary: Patient was given magnesium citrate, Colace and fleets enema with good results secondary to distended, hard firm abdomen with discomfort this was concerning. For ileus. Patient is to take MiraLAX daily and she was instructed to follow- up with her gastroenterology regarding further management of her chronic constipation (3) Urinary tract infection Is this a current diagnosis for this admission?: Yes Summary: Patient was started on Keflex 250 mg 1 p.o. twice daily suspect her mild UTI was due to chronic urinary retention secondary to her chronic constipation. Follow-up with her PCP - Additional Information Resuscitation Status: Full Code Prescriptions: Aspirin [Ecotrin 325 mg EC Tablet] 325 mg PO DAILY #30 tabec Atorvastatin Calcium [Lipitor 40 mg Tablet] 40 mg PO QHS #30 tablet Cephalexin Monohydrate [Keflex 250 mg Capsule] 250 mg PO Q12 7 Days #14 capsule Memantine HCl [Namenda 10 mg Tablet] 10 mg PO Q12 #60 tablet Home Medications: Clonidine HCl [Catapres 0.2 mg Tablet] 0.2 mg PO Q8 05/29/17 Clopidogrel Bisulfate [Plavix 75 mg Tablet] 75 mg PO DAILY 05/29/17 Duloxetine HCl [Cymbalta] 120 mg PO QHS 05/29/17 Insulin Aspart [Novolog Flexpen] 0 unit SUBCUT .SLIDING SCALE 05/29/17 Insulin Glargine,Hum.rec.anlog [Lantus Solostar] 60 unit SQ QHS 05/29/17 Levothyroxine Sodium [Synthroid 0.025 mg Tablet] 25 mcg PO Q6AM 05/29/17 Losartan Potassium [Cozaar 100 mg Tablet] 100 mg PO QHS 05/29/17 Polyethylene Glycol 3350 [Miralax Powder 17 gm/Packet] 1 packet PO DAILY Pregabalin [Lyrica] 150 mg PO DAILY 05/29/17 Verapamil HCl [Verapamil ER] 240 mg PO DAILY 05/29/17 Aspirin [Ecotrin 325 mg EC Tablet] 325 mg PO DAILY #30 tabec 05/30/17 Atorvastatin Calcium [Lipitor 40 mg Tablet] 40 mg PO QHS #30 tablet 05/30/17 Cephalexin Monohydrate [Keflex 250 mg Capsule] 250 mg PO Q12 7 Days #14 capsule 05/30/17 Docusate Sodium [Colace 100 mg Capsule] 100 mg PO BID capsule 05/30/17 Memantine HCl [Namenda 10 mg Tablet] 10 mg PO Q12 #60 tablet 05/30/17 Sennosides/Docusate 8.6-50 mg [Senna Plus Tablet] 2 each PO QHS tablet History of Present Illness Patient complains of: Chest pain and abdominal pain History of Present Illness: ADAM RIVAS is a 62 year old female Hospital Course Hospital Course: Patient was admitted for chest pain more like chest discomfort and abdominal pain. She had a negative stress test. She was having some shortness of breath which her abdominal ultrasound showed significant amount of fecal material noted. Most likely this was the result of her chest discomfort. She underwent a negative stress test found to have a mild UTI most likely secondary to urinary retention patient was treated with Rocephin and cultures are pending will ask primary care provider to follow-up on final results outpatient. Aggressive bowel regimen guarding her chronic constipation issues Physical Exam Vital Signs: Temp Pulse Resp BP Pulse Ox 98.4 F 58 L 18 159/66 H 98 05/30/17 07:35 05/30/17 07:35 05/30/17 07:35 05/30/17 07:35 05/30/17 07:35 Intake & Output 05/29/17 05/30/17 05/31/17 06:59 06:59 06:59 Intake Total 337 2536 Output Total 0 700 Balance 337 1836 Weight 89.6 kg 89.3 kg General appearance: PRESENT: no acute distress, well-developed, well-nourished Head exam: PRESENT: atraumatic, normocephalic Eye exam: PRESENT: conjunctiva pink, EOMI, PERRLA. ABSENT: scleral icterus Ear exam: PRESENT: normal external ear exam Mouth exam: PRESENT: moist, tongue midline Neck exam: ABSENT: carotid bruit, JVD, lymphadenopathy, thyromegaly Respiratory exam: PRESENT: clear to auscultation nano. ABSENT: rales, rhonchi, wheezes Cardiovascular exam: PRESENT: RRR. ABSENT: diastolic murmur, rubs, systolic murmur Pulses: PRESENT: normal dorsalis pedis pul Vascular exam: PRESENT: normal capillary refill GI/Abdominal exam: PRESENT: distended, firm, normal bowel sounds, soft. ABSENT : guarding, mass, organolmegaly, rebound, tenderness Rectal exam: PRESENT: deferred Extremities exam: PRESENT: full ROM. ABSENT: calf tenderness, clubbing, pedal edema Neurological exam: PRESENT: alert, awake, oriented to person, oriented to place , oriented to time, oriented to situation, CN II-XII grossly intact. ABSENT: motor sensory deficit Psychiatric exam: PRESENT: appropriate affect, normal mood. ABSENT: homicidal ideation, suicidal ideation Skin exam: PRESENT: dry, intact, warm. ABSENT: cyanosis, rash Results Laboratory Results: 05/30/17 05:39 Triglycerides 289 H Cholesterol 267.57 H LDL Cholesterol Direct 163 H VLDL Cholesterol 57.8 H HDL Cholesterol 34 L 05/29/17 05/29/17 05/29/17 03:14 09:31 14:54 Creatine Kinase CK-MB (CK-2) 1.50 1.32 1.30 Troponin I 0.049 0.047 0.044 05/30/17 05:39 Creatine Kinase 58 CK-MB (CK-2) Troponin I Impressions: Acute Abdomen Series 05/28/17 19:17 IMPRESSION: NO RADIOGRAPHIC EVIDENCE FOR ACUTE ABDOMINAL DISEASE. CONSTIPATION. Plan Time Spent: Less than 30 Minutes - Follow-up with her PCP next day or so to have her blood pressure monitored and evaluated for further management of her hypertension. Do not feel like she needs to continue hospitalization due to blood pressure being elevated today. Patient is very anxious and eager to go home. She is medically stable to return home with her children
[2017-05-30] MEDS ORDERED: INSULIN GLARGINE,HUM.REC.ANLOG 1,000 UNIT/10 ML UNIT SUBCUT SCH ×2 (22:00)
[2017-05-30] MEDS ORDERED: CIPROFLOXACIN HCL 500 MG TABLET PO SCH (22:00)
[2017-05-30] MEDS ORDERED: DULOXETINE HCL 30 MG CAPSULE.DR PO SCH (22:00)
--- NOTE | 2017-05-31 14:29 | Progress Note ---
Provider Note Provider Note: I was contacted by the pharmacist at [facility]. The patient has an interaction with her home verapamil and her newly prescribed atorvastatin. Apparently the verapamil causes decrease metabolism of atorvastatin. Simvastatin was not an alternative choice because of the same metabolic issues. Pravastatin however is able to be combined with verapamil. Therefore the patient was given a prescription by phone for pravastatin 80 mg nightly. This will be analogous to 40 mg of atorvastatin or simvastatin.
== END 2017-05-30 18:00 | disposition home or self-care (01) ==
LOC: ER 18:56 → EH 05-29 00:12 → INTOOBSV 05-29 00:12 → 3S 05-29 02:40
PROVIDERS: ADMIT Family Medicine; ATTEND Family Medicine
DX: R07.2 Precordial pain (principal); K59.09 Other constipation; K59.01 Slow transit constipation; N30.00 Acute cystitis without hematuria; I10 Essential (primary) hypertension; E78.5 Hyperlipidemia, unspecified; E10.65 Type 1 diabetes mellitus with hyperglycemia; E10.51 Type 1 diabetes mellitus with diabetic peripheral angiopathy without gangrene; E03.9 Hypothyroidism, unspecified; D64.9 Anemia, unspecified; K22.719 Barrett's esophagus with dysplasia, unspecified; F03.90 Unspecified dementia, unspecified severity, without behavioral disturbance, psychotic disturbance, mood disturbance, and anxiety; R06.02 Shortness of breath; Z90.49 Acquired absence of other specified parts of digestive tract; Z90.710 Acquired absence of both cervix and uterus; Z95.820 Peripheral vascular angioplasty status with implants and grafts; Z82.49 Family history of ischemic heart disease and other diseases of the circulatory system; Z79.899 Other long term (current) drug therapy; Z79.4 Long term (current) use of insulin; Z79.02 Long term (current) use of antithrombotics/antiplatelets; Z79.82 Long term (current) use of aspirin; Z87.11 Personal history of peptic ulcer disease; Z72.0 Tobacco use
CPT/HCPCS: 93005 ×2; 99291; 36415 ×3; 87086; 82553 ×2; 82962 ×2; 82550 ×2; 84443; 85025; 80053; 81001; 84484 ×2; 83036; 80061; 93017; 74022; 78452; 93010 ×2; A9500; A9270 ×27; J2785; J3490 ×4; J7030 ×2; J1650 ×2; J0696 ×2; Q9969; J1815

== ENCOUNTER 2017-07-09 08:32 | Day surgery (SDC) | payer MEDICARE, OTHER ==
[2017-07-09] MEDS ORDERED: MORPHINE SULFATE 10 MG/ML INJ IV PRN (10:37)
[2017-07-09] MEDS ORDERED: DIPHENHYDRAMINE HCL 50 MG/ML VIAL IV PRN (10:37)
[2017-07-09] MEDS ORDERED: FENTANYL CITRATE INJ/PF 100 MCG/2 ML AMPUL IV PRN ×3 (10:37)
[2017-07-09] MEDS ORDERED: MEPERIDINE HCL/PF INJ 25 MG/1 ML DISP.SYRIN IV PRN (10:37)
[2017-07-09] MEDS ORDERED: PROMETHAZINE HCL INJ 25 MG/1 ML VIAL IV PRN ×2 (10:37)
[2017-07-09] MEDS ORDERED: OXYCODONE-ACETAMINOPHEN 5-325 MG TABLET PO PRN ×2 (10:37)
--- NOTE | 2017-07-09 11:40 | Operative Report ---
Operative Report DATE OF SURGERY: 07/09/17 Operative Report: The risks, benefits and alternatives of the procedure including risks of bleeding, perforation requiring surgery are explained to the patient in detail and informed consent was obtained. Patient was taken back to the operating room and placed in the left, lateral decubital position. Timeout was called. Propofol medications administered. A rectal examination is done which did not reveal any masses, tears or fissures. An Olympus videoscope was inserted into the patient's rectum. The scope was then with some difficulty advanced all the way to the cecum. Patient has a poor prep. Patient also has a redundant colon. The cecum is identified by the ileocecal valve. The appendiceal orifice was not visualized. Several a areas of the colon which is poorly prep. No mention about the absence of presence of polyps in these areas. The scope was then sequentially pulled back through the various segments of the colon including the ascending colon, hepatic flexure, transverse colon, splenic flexure, descending colon and finding to the rectosigmoid portions of the colon. Retroflexion maneuvers performed. The risks benefits and alternatives of the procedure explained to the patient in detail and informed consent is obtained.A GIF Olympus video scope was inserted into the patient's mouth and hypopharynx, the esophagus is identified intubated and insufflated ,the scope was then advanced through the esophagus stomach and duodenum, retroflexion maneuver is done ,the esophagus stomach and first and second portions of the duodenum examined PREOPERATIVE DIAGNOSIS: Change of bowel habits. Known history of Raza's esophagus POSTOPERATIVE DIAGNOSIS: Raza's esophagus status post ablation. Poorly prepped colon. Redundant colon. Mild right-sided inflammation status post biopsy. Diverticulosis. Internal hemorrhoids OPERATION: Colonoscopy with biopsy. EGD with ablation SURGEON: JORDY BENNETT ANESTHESIA: LMAC TISSUE REMOVED OR ALTERED: As noted above. COMPLICATIONS: None. ESTIMATED BLOOD LOSS: None. INTRAOPERATIVE FINDINGS: As noted above. PROCEDURE: Patient tolerated procedure well. No immediate postprocedure complications are noted. Patient discharged in good condition. Discharge date 07/09/2017. Discharge diet: Regular. Discharge activity: Regular. 2-3 week follow-up to discuss findings. Patient is instructed to call the office or proceed to the emergency room should there be any further problems or questions. We will wait on pathology.
[2017-07-09 14:50] VITALS: BP 164/72
== END 2017-07-09 13:20 | disposition home or self-care (01) ==
LOC: OROUT 08:32
PROVIDERS: ATTEND Internal Medicine Gastroenterology
PROC: 0DBF8ZX Excision of Right Large Intestine, Via Natural or Artificial Opening Endoscopic, Diagnostic (ICD-10-PCS; principal; 2017-07-09 10:45)
PROC: 0D558ZZ Destruction of Esophagus, Via Natural or Artificial Opening Endoscopic (ICD-10-PCS; 2017-07-09 10:45)
DX: K52.9 Noninfective gastroenteritis and colitis, unspecified (principal); K22.719 Barrett's esophagus with dysplasia, unspecified; K57.30 Diverticulosis of large intestine without perforation or abscess without bleeding; K64.8 Other hemorrhoids; K63.89 Other specified diseases of intestine; K62.89 Other specified diseases of anus and rectum; K29.70 Gastritis, unspecified, without bleeding; F17.210 Nicotine dependence, cigarettes, uncomplicated; I10 Essential (primary) hypertension; E11.9 Type 2 diabetes mellitus without complications; E07.9 Disorder of thyroid, unspecified; M19.90 Unspecified osteoarthritis, unspecified site; I49.9 Cardiac arrhythmia, unspecified; R01.1 Cardiac murmur, unspecified; E78.00 Pure hypercholesterolemia, unspecified; Z79.4 Long term (current) use of insulin; Z86.73 Personal history of transient ischemic attack (TIA), and cerebral infarction without residual deficits; Z79.899 Other long term (current) drug therapy
CPT/HCPCS: 43270; 45380; 82962; 88305 ×2; J2704; 813

== ENCOUNTER → 2017-08-25 | Outpatient (CLI) | payer MEDICARE, OTHER ==
[2017-08-25 14:05] LABS: HEMATOCRIT 36.4 % (36.0-47.0); HEMOGLOBIN 11.6 g/dL (12.0-15.5); MEAN CORPUSCULAR HEMOGLOBIN 25.6 pg (27.0-33.4); MEAN CORPUSCULAR HGB CONC 31.9 g/dL (32.0-36.0); MEAN CORPUSCULAR VOLUME 80 fl (80-97); PLATELET COUNT 219 10^3/uL (150-450); RED BLOOD COUNT 4.54 10^6/uL (3.72-5.28); RED CELL DISTRIBUTION WIDTH 14.5 % (11.5-14.0); WHITE BLOOD COUNT 11.3 10^3/uL (4.0-10.5)
[2017-08-25 14:13] LABS: APPEARANCE,URINE SLIGHTLY-CLOUDY; BILIRUBIN,URINE NEGATIVE (NEGATIVE); COLOR,URINE YELLOW; GLUCOSE, URINE NEGATIVE (NEGATIVE); KETONES,URINE NEGATIVE (NEGATIVE); LEUKOCYTE ESTERASE,URINE LARGE (NEGATIVE); NITRITE,URINE NEGATIVE (NEGATIVE); PROTEIN,URINE 100 mg/dL (NEGATIVE); URINE SPECIFIC GRAVITY 1.006; UROBILINOGEN,URINE NEGATIVE mg/dL (<2.0)
[2017-08-25 14:23] LABS: ANION GAP 11 (5-19); BLOOD UREA NITROGEN 16 mg/dL (7-20); CALCIUM 9.3 mg/dL (8.4-10.2); CARBON DIOXIDE 28 mmol/L (22-30); CHLORIDE 103 mmol/L (98-107); GLUCOSE 143 mg/dL (75-110); SODIUM 141.8 mmol/L (137-145)
== END ==
LOC: OD 12:51
PROVIDERS: ATTEND Internal Medicine Nephrology
DX: I12.9 Hypertensive chronic kidney disease with stage 1 through stage 4 chronic kidney disease, or unspecified chronic kidney disease (principal); N18.2 Chronic kidney disease, stage 2 (mild); E03.9 Hypothyroidism, unspecified; E11.65 Type 2 diabetes mellitus with hyperglycemia; N39.0 Urinary tract infection, site not specified
CPT/HCPCS: 36415; 80048; 81001; 85027; 87086

== ENCOUNTER → 2017-10-05 | Outpatient (CLI) | payer MEDICARE, OTHER ==
[2017-10-05 13:31] LABS: APPEARANCE,URINE CLOUDY; BILIRUBIN,URINE NEGATIVE (NEGATIVE); COLOR,URINE YELLOW; GLUCOSE, URINE NEGATIVE (NEGATIVE); KETONES,URINE NEGATIVE (NEGATIVE); LEUKOCYTE ESTERASE,URINE LARGE (NEGATIVE); MEAN CORPUSCULAR HEMOGLOBIN 25.4 pg (27.0-33.4); MEAN CORPUSCULAR HGB CONC 32.4 g/dL (32.0-36.0); MEAN CORPUSCULAR VOLUME 78 fl (80-97); NITRITE,URINE POSITIVE (NEGATIVE); PLATELET COUNT 260 10^3/uL (150-450); PROTEIN,URINE 100 mg/dL (NEGATIVE); RED BLOOD COUNT 4.34 10^6/uL (3.72-5.28); URINE SPECIFIC GRAVITY 1.006; UROBILINOGEN,URINE NEGATIVE mg/dL (<2.0); WHITE BLOOD COUNT 13.1 10^3/uL (4.0-10.5)
[2017-10-05 14:00] LABS: ANION GAP 13 (5-19); BLOOD UREA NITROGEN 18 mg/dL (7-20); CALCIUM 9.3 mg/dL (8.4-10.2); CARBON DIOXIDE 30 mmol/L (22-30); CHLORIDE 101 mmol/L (98-107); GLUCOSE 151 mg/dL (75-110); POTASSIUM 4.2 mmol/L (3.6-5.0); SODIUM 144.3 mmol/L (137-145)
[2017-10-05 14:07] LABS: UR PRO/CREAT RATIO RESULT 3.6 mg/mg (0.0-0.2); URINE CREATININE 45.8 mg/dL (15-278); URINE PROTEIN 167.1 mg/dL (<12)
== END ==
LOC: OD 12:19
PROVIDERS: ATTEND Internal Medicine Nephrology
DX: I12.9 Hypertensive chronic kidney disease with stage 1 through stage 4 chronic kidney disease, or unspecified chronic kidney disease (principal); N18.2 Chronic kidney disease, stage 2 (mild); R80.9 Proteinuria, unspecified; E11.9 Type 2 diabetes mellitus without complications
CPT/HCPCS: 36415; 80048; 81001; 82570; 84156; 85027

== ENCOUNTER 2017-10-06 16:27 | Emergency (ER) | payer MEDICARE, OTHER ==
[2017-10-06 16:47] VITALS: BP 140/63
--- NOTE | 2017-10-06 17:07 | ER Document Report ---
ED General - General Chief Complaint: Abnormal Lab Results Stated Complaint: ABNORMAL LABS Time Seen by Provider: 10/06/17 17:04 Notes: Patient states she was referred here by her kidney physician. She states that her primary doctor has arranged for her to follow-up with a transfer and pumphouse operator. She states that the transfer and pumphouse operator requested that she obtain some labs before coming for the visit. She went and obtained labs yesterday. She states that the transfer and pumphouse operator called her today told her that she appear to have an infection in her urine and that she needed to come to the emergency department. Patient states that she currently feels "fine. She states she has a little bit of abdominal bloating but no real pain. Symptoms are intermittent. Nothing makes it better or worse. They have been ongoing for many months. There is no known radiation symptoms. She denies any vomiting diarrhea fevers chills. TRAVEL OUTSIDE OF THE [place] IN LAST 30 DAYS: No - Related Data Allergies/Adverse Reactions: No Known Allergies Allergy (Verified 10/06/17 16:53) Past Medical History - General Information source: Patient - Social History Smoking Status: Never Smoker Chew tobacco use (# tins/day): Yes Frequency of alcohol use: None Drug Abuse: None Family History: CAD, DM, Hypertension Patient has suicidal ideation: No Patient has homicidal ideation: No - Past Medical History Cardiac Medical History: Reports: Hx Coronary Artery Disease - STENTS PLACED IN LEGS, Hx Hypercholesterolemia, Hx Hypertension, Hx Peripheral Vascular Disease - Stents placed in legs. Denies: Hx Heart Attack, Hx Pulmonary Embolism Pulmonary Medical History: Denies: Hx Asthma, Hx Bronchitis, Hx COPD, Hx Pneumonia Neurological Medical History: Denies: Hx Cerebrovascular Accident, Hx Seizures Endocrine Medical History: Reports: Hx Diabetes Mellitus Type 1, Hx Diabetes Mellitus Type 2, Hx Hypothyroidism. Denies: Hx Hyperthyroidism Renal/ Medical History: Denies: Hx Peritoneal Dialysis GI Medical History: Reports: Hx Endoscopy. Denies: Hx Cirrhosis, Hx Hepatitis Musculoskeltal Medical History: Denies Hx Arthritis Psychiatric Medical History: Reports: Hx Dementia Denies: Hx Depression Infectious Medical History: Denies: Hx Hepatitis Past Surgical History: Reports: Hx Appendectomy, Hx Hysterectomy, Hx Vascular Surgery - Right leg artery stent, Other - Cataract surgery - Immunizations Hx Diphtheria, Pertussis, Tetanus Vaccination: Yes Review of Systems - Review of Systems Constitutional: denies: Chills, Fever Cardiovascular: denies: Chest pain, Palpitations Respiratory: denies: Cough, Short of breath Physical Exam - Vital signs Vitals: Temp Pulse Resp BP Pulse Ox 98.0 F 64 17 140/63 H 97 10/06/17 16:45 10/06/17 16:45 10/06/17 16:45 10/06/17 16:45 10/06/17 16:45 Interpretation: Normal - General General appearance: Appears well, Alert - HEENT Head: Normocephalic, Atraumatic Eyes: Normal Pupils: PERRL - Respiratory Respiratory status: No respiratory distress Chest status: Nontender Breath sounds: Normal Chest palpation: Normal - Cardiovascular Rhythm: Regular Heart sounds: Normal auscultation Murmur: No - Abdominal Inspection: Normal Distension: No distension Bowel sounds: Normal Tenderness: Nontender Organomegaly: No organomegaly - Back Back: Normal, Nontender - Extremities General upper extremity: Normal inspection, Nontender, Normal color, Normal ROM , Normal temperature General lower extremity: Normal inspection, Nontender, Normal color, Normal ROM , Normal temperature, Normal weight bearing. No: Genesis's sign - Neurological Neuro grossly intact: Yes Cognition: Normal Orientation: AAOx4 Elizabeth Coma Scale Eye Opening: Spontaneous Elizabeth Coma Scale Verbal: Oriented [place] Coma Scale Motor: Obeys Commands [place] Coma Scale Total: 15 Speech: Normal Motor strength normal: LUE, RUE, LLE, RLE Sensory: Normal - Psychological Associated symptoms: Normal affect, Normal mood - Skin Skin Temperature: Warm Skin Moisture: Dry Skin Color: Normal Course - Vital Signs Vital signs: Temp Pulse Resp BP Pulse Ox 98.0 F 64 17 140/63 H 97 10/06/17 16:45 10/06/17 16:45 10/06/17 16:45 10/06/17 16:45 10/06/17 16:45 Discharge - Discharge Clinical Impression: Urinary tract infection Qualifiers: Urinary tract infection type: site unspecified Hematuria presence: without hematuria Qualified Code(s): N39.0 - Urinary tract infection, site not specified Condition: Stable Disposition: HOME, SELF-CARE Instructions: Urinary Tract Infection ([facility]) Additional Instructions: Please follow-up on Wednesday as scheduled. Prescriptions: Cefdinir 300 mg PO BID 7 Days #14 capsule
== END 2017-10-06 17:11 | disposition home or self-care (01) ==
LOC: ER 16:27
DX: N39.0 Urinary tract infection, site not specified (principal); I10 Essential (primary) hypertension; I25.10 Atherosclerotic heart disease of native coronary artery without angina pectoris; E11.51 Type 2 diabetes mellitus with diabetic peripheral angiopathy without gangrene
CPT/HCPCS: 99283

== ENCOUNTER → 2017-10-28 | Outpatient (CLI) | payer MEDICARE, OTHER ==
--- NOTE | 2017-10-31 16:59 | XCELERA REPORT ---
[address] [address] Lower Extremity Arterial Evaluation Name: ADAM RIVAS Age: 62 yrs Gender: Female : 1955 Patient Status: Outpatient Patient Location: Study Date: 10/28/2017 10:25 AM Procedure: A color flow and duplex scan of the lower extremity arteries was performed bilaterally with velocity and waveform anaylsis. Reason For Study: PVD Ordering Physician: PAM CANDELARIA Performed By: Sumaya London Measurements and Calculations Right Left PEDIATRICIAN PSV 161.9 197.3 cm/sec Prox PFA PSV -137.5 -189.5 cm/sec Prox SFA PSV -104.1 -174.8 cm/sec Mid SFA PSV -86.4 -99.1 cm/sec Dist SFA PSV -115.4 -111.5 cm/sec Dist Pop A PSV 61.3 89.6 cm/sec Dist LILLIAN PSV 56.8 111.5 cm/sec Dist PEDIATRICIAN PSV 30.3 20.6 cm/sec Kody Pedis PSV 63.4 28.3 cm/sec Right Side Arterial Evaluation Normal velocity and biphasic waveforms noted from the Common Femoral artery to the infrageniculate vessels. 0-19 % stenosis . At the Aorto Iliac inflow. Ankle Brachial index is 0.9. Left Side Arterial Evaluation Normal velocity and triphasic waveforms noted in the Common Femoral arterioplastic from the Popliteal, Monophasic in the Posterior tibial. Well preserved velocities except for the Posterior Tibial. 0-19% stenosis at the Femoral artery. Sequential disease as noted. Ankle Brachial index is 0.9 . Interpretation Summary Mild hemodynamically significant lesions in the right lower extremity only, on duplex imaging, at rest. Moderate hemodynamically significant lesions in the left lower extremity only, on duplex imaging, at rest. : PAM CANDELARIA > Pam Candelaria
== END ==
LOC: SP 09:30
PROVIDERS: ATTEND Surgery
DX: I73.9 Peripheral vascular disease, unspecified (principal)
CPT/HCPCS: 93925

== ENCOUNTER → 2017-12-02 | Outpatient (CLI) | payer MEDICARE, OTHER ==
--- NOTE | 2017-12-02 10:12 | RADIOLOGY REPORT (SQ) ---
EXAM DESCRIPTION: CT ABD/PELVIS ORAL ONLY COMPLETED DATE/TIME: 12/02/2017 7:43 am REASON FOR STUDY: ABD DISTENSION (R14.0), CONSTIPATION (K59.00) R14.0 ABDOMINAL DISTENSION (GASEOUS ) COMPARISON: Abdominal films 05/28/2017 TECHNIQUE: CT scan of the abdomen and pelvis performed without intravenous contrast. Patient drank oral contrast. Images reviewed with lung, soft tissue, and bone windows. Reconstructed coronal and sagittal MPR imag es reviewed. All images stored on PACS. All CT scanners at this facility use dose modulation, iterative reconstruction, and/or weight based d osing when appropriate to reduce radiation dose to as low as reasonably achievable (ALARA). [facility]: Dose Right [facility]: CareDose [facility]: Dose Right [facility]: Teradose 4D [facility]: ImmunGene RADIATION DOSE: CT Rad equipment meets quality standard of care and radiation dose reduction techniq ues were employed. CTDIvol: 10.4 mGy. DLP: 582 mGy-cm.mGy. LIMITATIONS: None. FINDINGS: LOWER CHEST: No significant findings. No nodules or infiltrates. NON-CONTRASTED LIVER, SPLEEN, ADRENALS: Evaluation limited by lack of IV contrast. No identified sign ificant masses. PANCREAS: No masses. No peripancreatic inflammatory changes. GALLBLADDER: No identified stones by CT criteria. No inflammatory changes to suggest cholecystitis. RIGHT KIDNEY AND URETER: No suspicious masses. Assessment limited by lack of IV contrast. No signif icant calcifications. No hydronephrosis or hydroureter. LEFT KIDNEY AND URETER: No suspicious masses. Assessment limited by lack of IV contrast. 2 mm intra renal nonobstructive left upper pole stone. No left ureteral calculi. No hydronephrosis or hydrour eter. AORTA AND RETROPERITONEUM: No aneurysm. No retroperitoneal masses or adenopathy. BOWEL AND PERITONEAL CAVITY: Large amount of stool throughout the colon. Patient drank oral contrast without CT evidence of bowel obstruction. No free intraperitoneal air or fluid. APPENDIX: Not visualized PELVIS, BLADDER, AND ABDOMINAL WALL:Post hysterectomy. No pelvic masses or adenopathy. No free pelv ic fluid. No ventral hernia. BONES: No significant findings. OTHER: No other significant finding. IMPRESSION: REDUNDANT COLON WITH LARGE AMOUNT OF STOOL. 2 MM LEFT UPPER POLE INTRARENAL NONOBSTRUCTIVE KIDNEY STONE. POST HYSTERECTOMY. APPENDIX NOT VISUALIZED, LIKELY POST APPENDECTOMY AT THE TIME OF HYSTERECTOMY. COMMENT: Quality ID # [id number]: Final reports with documentation of one or more dose reduction techniques (e.g., Automated exposure control, adjustment of the mA and/or kV according to patient size, use of iterative reconstruction technique) TECHNICAL DOCUMENTATION: JOB ID: [id number] [employer]- All Rights Reserved Reading location - IP/workstation name: [email or web address] [id number]
== END ==
LOC: RAD 07:29
PROVIDERS: ATTEND Physician Assistant
DX: K59.00 Constipation, unspecified (principal); R14.0 Abdominal distension (gaseous)
CPT/HCPCS: 74176

== ENCOUNTER → 2017-12-07 | Outpatient (CLI) | payer MEDICARE, OTHER ==
--- NOTE | 2017-12-08 17:36 | XCELERA REPORT ---
[address] [address] Transthoracic Echocardiogram Report Name: ADAM RIVAS Age: 62 yrs Gender: Female : 1955 Patient Status: Outpatient Patient Location: Study Date: 12/07/2017 03:25 PM Procedure: A two-dimensional transthoracic echocardiogram with color flow and Doppler was performed. The study was technically difficult with many images being suboptimal in quality. The study was technically limited with all images being suboptimal in quality. Reason For Study: SOB History: Shortness of breath. Ordering Physician: ERNESTO SHARPE Performed By: Kathryn Nicole Interpretation Summary The left ventricle is normal in size. LV EF is 60% Left ventricular systolic function is normal. Doppler measurements suggest impaired left ventricular relaxation, which is associated with grade I/IV or mild diastolic dysfunction The left ventricular wall motion is normal. There is no thrombus. The left atrium is mildly dilated. There is mild mitral annular calcification. There is no evidence of mitral valve prolapse. There is no mitral valve stenosis. There is a trace to mild amount of mitral regurgitation There is no aortic valve stenosis There is no LVOT obstruction. No aortic regurgitation is present. There is no tricuspid stenosis. There is a trace amount of tricuspid regurgitation There is mild pulmonary hypertension by echo RVSP is 37 mm of Hg , with RA mean of 10. There is no pulmonic valvular stenosis. There is a trace amount of pulmonic regurgitation There is no pericardial effusion. MMode/2D Measurements & Calculations RVDd: 4.1 cm LVIDd: 4.2 cm FS: 24.8 % Ao root diam: 3.1 cm IVSd: 1.3 cm LVIDs: 3.1 cm EDV(Teich): 77.2 ml Ao root area: 7.5 cm2 LVPWd: 1.9 cm ESV(Teich): 39.0 ml EF(Teich): 49.5 % LVOT diam: 2.1 cm LVOT area: 3.6 cm2 Doppler Measurements & Calculations MV E max greg: MV dec slope: Ao V2 max: LV V1 max P.5 cm/sec 133.6 cm/sec 5.2 mmHg MV A max greg: 387.6 cm/sec2 Ao max PG: LV V1 max: 126.6 cm/sec MV dec time: 7.1 mmHg 114.4 cm/sec MV E/A: 0.90 0.30 sec SUSHILA(V,D): 3.1 cm2 PA V2 max: PI end-d greg: TR max greg: Pulm Sys Greg: 79.9 cm/sec 59.7 cm/sec 261.6 cm/sec 66.9 cm/sec PA max PG: TR max PG: Pulm Fernandez Greg: 2.6 mmHg 27.4 mmHg 59.0 cm/sec Pulm A Revs Greg: 26.5 cm/sec Pulm A Revs Dur: 0.12 sec Pulm S/D: 1.1 Left Ventricle The left ventricle is normal in size. There is mild concentric left ventricular hypertrophy. LV EF is 60%. Left ventricular systolic function is normal. Doppler measurements suggest impaired left ventricular relaxation, which is associated with grade I/IV or mild diastolic dysfunction. The left ventricular wall motion is normal. There is no thrombus. Right Ventricle The right ventricle is not well visualized secondary to technical limitations. Atria The right atrium is normal. The left atrium is mildly dilated. Mitral Valve There is mild mitral annular calcification. There is no evidence of mitral valve prolapse. There is no vegetation seen on the mitral valve. There is no mitral valve stenosis. There is a trace to mild amount of mitral regurgitation. Aortic Valve There is no aortic valvular vegetation. There is no aortic valve stenosis. There is no LVOT obstruction. No aortic regurgitation is present. Tricuspid Valve There is no tricuspid stenosis. There is a trace amount of tricuspid regurgitation. There is mild pulmonary hypertension by echo. RVSP is 37 mm of Hg , with RA mean of 10. Pulmonic Valve There is no pulmonic valvular stenosis. There is a trace amount of pulmonic regurgitation. Great Vessels The aortic root is normal size. Effusions There is no pericardial effusion. : ERNESTO SHARPE > Jagruti Chandler
== END ==
LOC: SP 14:53
PROVIDERS: ATTEND Physician Assistant
DX: R06.02 Shortness of breath (principal)
CPT/HCPCS: 93306

== ENCOUNTER → 2018-01-31 | Outpatient (CLI) | payer MEDICARE, OTHER ==
[2018-01-31 13:28] LABS: APPEARANCE,URINE SLIGHTLY-CLOUDY; BILIRUBIN,URINE NEGATIVE (NEGATIVE); COLOR,URINE YELLOW; GLUCOSE, URINE NEGATIVE (NEGATIVE); KETONES,URINE NEGATIVE (NEGATIVE); LEUKOCYTE ESTERASE,URINE SMALL (NEGATIVE); NITRITE,URINE NEGATIVE (NEGATIVE); PROTEIN,URINE >=500 mg/dL (NEGATIVE); URINE SPECIFIC GRAVITY 1.015; UROBILINOGEN,URINE NEGATIVE mg/dL (<2.0)
[2018-01-31 13:30] LABS: HEMATOCRIT 34.2 % (36.0-47.0); HEMOGLOBIN 10.9 g/dL (12.0-15.5); MEAN CORPUSCULAR HEMOGLOBIN 25.9 pg (27.0-33.4); MEAN CORPUSCULAR VOLUME 81 fl (80-97); PLATELET COUNT 244 10^3/uL (150-450); RED BLOOD COUNT 4.23 10^6/uL (3.72-5.28); WHITE BLOOD COUNT 11.8 10^3/uL (4.0-10.5)
[2018-01-31 14:07] LABS: URINE CREATININE 172.9 mg/dL (15-278)
[2018-01-31 14:20] LABS: UR PRO/CREAT RATIO RESULT 1.9 mg/mg (0.0-0.2); URINE PROTEIN 327.4 mg/dL (<12)
[2018-01-31 14:30] LABS: ANION GAP 16 (5-19); BLOOD UREA NITROGEN 19 mg/dL (7-20); CALCIUM 9.1 mg/dL (8.4-10.2); CARBON DIOXIDE 21 mmol/L (22-30); CHLORIDE 105 mmol/L (98-107); GLUCOSE 184 mg/dL (75-110); POTASSIUM 4.9 mmol/L (3.6-5.0); SODIUM 141.9 mmol/L (137-145)
== END ==
LOC: OD 11:59
PROVIDERS: ATTEND Internal Medicine Nephrology
DX: E11.22 Type 2 diabetes mellitus with diabetic chronic kidney disease (principal); N18.2 Chronic kidney disease, stage 2 (mild); R80.9 Proteinuria, unspecified
CPT/HCPCS: 36415; 80048; 81001; 82570; 84156; 85027

== ENCOUNTER → 2018-01-31 | Outpatient (CLI) | payer MEDICARE, OTHER ==
--- NOTE | 2018-01-31 17:21 | WOMENS IMAGING REPORT ---
EXAM DESCRIPTION: 3D SCREENING MAMMO BILAT COMPLETED DATE/TIME: 01/31/2018 1:48 pm REASON FOR STUDY: ROUTINE SCREENING MAMMOGRAM Z12.31 Z12.31 ENCNTR SCREEN MAMMOGRAM FOR MALIGNANT N EOPLASM OF RODNEY COMPARISON: Multiple since 2008 TECHNIQUE: Standard craniocaudal and mediolateral oblique views of each breast recorded using digita l acquisition and breast tomosynthesis. LIMITATIONS: None. FINDINGS: No masses, calcifications or architectural distortion. No areas of suspicion. Read with the assistance of CAD. .[facility] - R2 Cenova Version 1.3 .[facility] - R2 Cenova Version 1.3 .[facility] - R2 Cenova Version 2.4 .[facility] Cenova Version 2.4 .[facility] - R2 Furnace Door Tender Version 9.2 IMPRESSION: NORMAL MAMMOGRAM. BIRADS 1. BREAST DENSITY: b. There are scattered areas of fibroglandular density. BIRAD: 1 NEGATIVE RECOMMENDATION: ROUTINE SCREENING Please continue yearly bilateral screening tomosynthesis in January 2019 COMMENT: The patient has been notified of the results by letter per SA requirements. Additional no tification policies are in place for contacting patient with suspicious or incomplete findings. Quality ID #[id number]: The [employer] recommends an annual screening mammogram for women aged 40 years or over. This facility utilizes a reminder system to ensure that all patients receive reminder letters, and/or direct phone calls for appointments. This includes reminders for routine scr eening mammograms, diagnostic mammograms, or other Breast Imaging Interventions when appropriate. Th is patient will be placed in the appropriate reminder system. The [employer] (ACR) has developed recommendations for screening MRI of the breast s in certain patient populations, to be used in conjunction with mammography. Breast MRI surveillanc e may be appropriate for women with more than 20% lifetime risk of developing breast cancer as deter mined by genetic testing, significant family history of the disease, or history of mantle radiation f or Hodgkins Disease. ACR Practice Guidelines 2008. DBT Technology DBT is a type of tomographic mammography. With conventional mammography, overlapping breast tissue ma y make lesions difficult to detect, even with good compression. DBT uses an x-ray tube that rotates a round the breast, taking images at different angles. These images are then combined to create thin sl ices of the breast that the radiologist can view as a 3D reconstruction. The [employer] unit can perform full-field digital mammograms (2D imaging); or DBT (3D imaging); or both, in a combination mode that quickly performs both the mammogram and the tomosynthesis scan while the breast is still compressed. PQRS 6045F: Fluoroscopic imaging is not utilized for breast tomosynthesis. TECHNICAL DOCUMENTATION: FINDING NUMBER: (1) ASSESSMENT: (1) JOB ID: [id number] [employer]- All Rights Reserved Reading location - IP/workstation name: [email or web address]
== END ==
LOC: WI 13:57
PROVIDERS: ATTEND Family Medicine
DX: Z12.31 Encounter for screening mammogram for malignant neoplasm of breast (principal)
CPT/HCPCS: 77063; 77067

== ENCOUNTER → 2018-07-07 | Outpatient (CLI) | payer MEDICARE, OTHER ==
[2018-07-07 11:49] LABS: HEMATOCRIT 31.9 % (36.0-47.0); HEMOGLOBIN 10.4 g/dL (12.0-15.5); MEAN CORPUSCULAR HEMOGLOBIN 25.1 pg (27.0-33.4); MEAN CORPUSCULAR HGB CONC 32.5 g/dL (32.0-36.0); MEAN CORPUSCULAR VOLUME 77 fl (80-97); PLATELET COUNT 222 10^3/uL (150-450); RED BLOOD COUNT 4.14 10^6/uL (3.72-5.28); RED CELL DISTRIBUTION WIDTH 16.3 % (11.5-14.0); WHITE BLOOD COUNT 10.1 10^3/uL (4.0-10.5)
[2018-07-07 11:54] LABS: APPEARANCE,URINE SLIGHTLY-CLOUDY; BILIRUBIN,URINE NEGATIVE (NEGATIVE); COLOR,URINE YELLOW; GLUCOSE, URINE >=500 mg/dL (NEGATIVE); KETONES,URINE NEGATIVE (NEGATIVE); LEUKOCYTE ESTERASE,URINE LARGE (NEGATIVE); NITRITE,URINE NEGATIVE (NEGATIVE); PROTEIN,URINE 100 mg/dL (NEGATIVE); URINE SPECIFIC GRAVITY 1.012; UROBILINOGEN,URINE NEGATIVE mg/dL (<2.0)
[2018-07-07 12:06] LABS: ANION GAP 10 (5-19); BLOOD UREA NITROGEN 16 mg/dL (7-20); CALCIUM 8.4 mg/dL (8.4-10.2); CARBON DIOXIDE 27 mmol/L (22-30); CHLORIDE 101 mmol/L (98-107); GLUCOSE 319 mg/dL (75-110); POTASSIUM 4.1 mmol/L (3.6-5.0); SODIUM 137.9 mmol/L (137-145)
[2018-07-07 12:12] LABS: URINE CREATININE 51.9 mg/dL (15-278)
[2018-07-07 12:23] LABS: UR PRO/CREAT RATIO RESULT 4.8 mg/mg (0.0-0.2); URINE PROTEIN 251.4 mg/dL (<12)
== END ==
LOC: OD 10:42
PROVIDERS: ATTEND Internal Medicine Nephrology
DX: E11.22 Type 2 diabetes mellitus with diabetic chronic kidney disease (principal); I12.9 Hypertensive chronic kidney disease with stage 1 through stage 4 chronic kidney disease, or unspecified chronic kidney disease; N18.2 Chronic kidney disease, stage 2 (mild); R80.9 Proteinuria, unspecified
CPT/HCPCS: 36415; 80048; 81001; 82570; 84156; 85027

== ENCOUNTER → 2018-08-03 | Outpatient (CLI) | payer MEDICARE, OTHER ==
--- NOTE | 2018-08-03 12:20 | RADIOLOGY REPORT (SQ) ---
EXAM DESCRIPTION: DUPLEX ART/KARIS FLOW COMPLETE COMPLETED DATE/TIME: 08/03/2018 11:35 am REASON FOR STUDY: N18.2 CHRONIC KIDNEY DISEASE, STAGE 2 (MILD) N18.2 CHRONIC KIDNEY DISEASE, STAGE 2 (MILD) R80.9 PROTEINURIA, UNSPECIFIED COMPARISON: None. TECHNIQUE: Realtime and static grayscale images acquired. Selected color Doppler, velocities and spe ctral images recorded. LIMITATIONS: None. FINDINGS: RIGHT KIDNEY: RENAL ARTERY VELOCITIES: 41 cm/sec. Segmental artery velocity 37 cm/sec. RENAL VEIN: Color doppler flow present, patent. VELOCITY RATIO: 1.0. Normal waveforms. KIDNEY: Normal size. No significant pathology. LEFT KIDNEY: RENAL ARTERY VELOCITIES: 70 not cm/sec. Segmental artery velocity 41 cm/sec. RENAL VEIN: Color doppler flow present, patent. VELOCITY RATIO: 1.9. Normal waveforms. KIDNEY: Normal size. No significant pathology. BLADDER: Normal. OTHER: No other significant finding. IMPRESSION: NO DOPPLER EVIDENCE OF HEMODYNAMICALLY SIGNIFICANT RENAL ARTERY STENOSIS. COMMENT: NORMAL RENAL ARTERY/AORTA VELOCITY RATIO IS LESS THAN OR EQUAL TO 3.5. TECHNICAL DOCUMENTATION: JOB ID: [id number] [employer]- All Rights Reserved Reading location - IP/workstation name: [email or web address]
== END ==
LOC: RAD 10:14
PROVIDERS: ATTEND Internal Medicine Nephrology
DX: E11.22 Type 2 diabetes mellitus with diabetic chronic kidney disease (principal); I12.9 Hypertensive chronic kidney disease with stage 1 through stage 4 chronic kidney disease, or unspecified chronic kidney disease; N18.2 Chronic kidney disease, stage 2 (mild); R80.9 Proteinuria, unspecified
CPT/HCPCS: 93975

== ENCOUNTER → 2018-09-21 | Outpatient (CLI) | payer MEDICARE, OTHER ==
[2018-09-21 14:09] LABS: HEMATOCRIT 30.2 % (36.0-47.0); MEAN CORPUSCULAR HEMOGLOBIN 24.8 pg (27.0-33.4); MEAN CORPUSCULAR HGB CONC 32.9 g/dL (32.0-36.0); MEAN CORPUSCULAR VOLUME 75 fl (80-97); PLATELET COUNT 210 10^3/uL (150-450); RED BLOOD COUNT 4.02 10^6/uL (3.72-5.28); RED CELL DISTRIBUTION WIDTH 16.9 % (11.5-14.0); WHITE BLOOD COUNT 13.5 10^3/uL (4.0-10.5)
[2018-09-21 14:21] LABS: APPEARANCE,URINE CLOUDY; BILIRUBIN,URINE NEGATIVE (NEGATIVE); COLOR,URINE YELLOW; GLUCOSE, URINE NEGATIVE (NEGATIVE); KETONES,URINE NEGATIVE (NEGATIVE); LEUKOCYTE ESTERASE,URINE LARGE (NEGATIVE); NITRITE,URINE NEGATIVE (NEGATIVE); PROTEIN,URINE 100 mg/dL (NEGATIVE); URINE SPECIFIC GRAVITY 1.009; UROBILINOGEN,URINE NEGATIVE mg/dL (<2.0)
[2018-09-21 14:34] LABS: ANION GAP 11 (5-19); BLOOD UREA NITROGEN 27 mg/dL (7-20); CALCIUM 8.5 mg/dL (8.4-10.2); CARBON DIOXIDE 29 mmol/L (22-30); CHLORIDE 95 mmol/L (98-107); GLUCOSE 245 mg/dL (75-110); POTASSIUM 3.6 mmol/L (3.6-5.0); SODIUM 135.1 mmol/L (137-145)
== END ==
LOC: OD 12:56
PROVIDERS: ATTEND Internal Medicine Nephrology
DX: E11.22 Type 2 diabetes mellitus with diabetic chronic kidney disease (principal); I12.9 Hypertensive chronic kidney disease with stage 1 through stage 4 chronic kidney disease, or unspecified chronic kidney disease; N18.2 Chronic kidney disease, stage 2 (mild); R80.9 Proteinuria, unspecified
CPT/HCPCS: 36415; 80048; 81001; 85027

== ENCOUNTER 2018-11-08 15:18 | Emergency (ER) | payer OTHER, MEDICARE ==
[2018-11-08] MEDS ORDERED: HYDROCODONE/ACETAMINOPHEN 5-325 MG TABLET PO ONE (16:24)
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
[2018-11-08 18:41] VITALS: BP 194/73
== END 2018-11-08 18:41 | disposition home or self-care (01) ==
LOC: ER 15:18
DX: S39.012A Strain of muscle, fascia and tendon of lower back, initial encounter (principal); S93.402A Sprain of unspecified ligament of left ankle, initial encounter; S16.1XXA Strain of muscle, fascia and tendon at neck level, initial encounter; M79.10 Myalgia, unspecified site; V89.2XXA Person injured in unspecified motor-vehicle accident, traffic, initial encounter; E78.00 Pure hypercholesterolemia, unspecified; I10 Essential (primary) hypertension; E11.9 Type 2 diabetes mellitus without complications; Z90.710 Acquired absence of both cervix and uterus
CPT/HCPCS: 99284; 73610; 72070; 72125; L1902

== ENCOUNTER 2018-11-11 11:05 | Day surgery (SDC) | payer MEDICARE, OTHER ==
[2018-11-11 13:28] VITALS: BP 192/73
--- NOTE | 2018-11-11 14:01 | Operative Report ---
Operative Report DATE OF SURGERY: 11/11/18 Operative Report: The risks, benefits and alternatives of the procedure including the risk of bleeding, perforation requiring surgery have been explained to the patient in detail and informed consent has been obtained, patient was taken to the endoscopy lab and placed in the left, lateral decubital position. Timeout was called. Propofol medication is provided. Rectal examination is done which did not reveal any masses, tears or fissures. An Olympus videoscope was inserted into the patient's rectum. The scope was then carefully advanced all the way to the cecum. The cecum was identified by the usual anatomical landmarks of the ileocecal valve as well as the appendiceal office. Photodocumentation is obtained. The scope was then sequentially pulled back via the various segments of the colon including the ascending colon, hepatic flexure, transverse colon, splenic flexure, descending colon and finally into the rectosigmoid portions of the colon. Retroflexion maneuver is performed. The risks benefits and alternatives of the procedure explained to the patient in detail and informed consent is obtained.A GIF Olympus video scope was inserted into the patient's mouth and hypopharynx, the esophagus is identified intubated and insufflated ,the scope was then advanced through the esophagus stomach and duodenum, retroflexion maneuver is done ,the esophagus stomach and first and second portions of the duodenum examined. PREOPERATIVE DIAGNOSIS: Chronic constipation without obstruction POSTOPERATIVE DIAGNOSIS: Right colon inflammation status post biopsy. Internal hemorrhoids OPERATION: Colonoscopy with biopsy SURGEON: JORDY BENNETT ANESTHESIA: LMAC TISSUE REMOVED OR ALTERED: As noted above. COMPLICATIONS: None. ESTIMATED BLOOD LOSS: None. INTRAOPERATIVE FINDINGS: As noted above. PROCEDURE: Patient tolerated the procedure well. No immediate postprocedure complications are noted. Patient is discharged in good condition. Discharge date 11/11/2018. Discharge diet: Regular. Discharge activity: Regular. 2 to 3-week follow-up to discuss findings. Patient is instructed to call the office or proceed to the emergency room should there be any further problems or questions. Wait on the pathology.
== END 2018-11-11 13:35 | disposition home or self-care (01) ==
LOC: END 11:05
PROVIDERS: ATTEND Internal Medicine Gastroenterology
DX: K52.9 Noninfective gastroenteritis and colitis, unspecified (principal); K64.8 Other hemorrhoids; K63.89 Other specified diseases of intestine; E78.5 Hyperlipidemia, unspecified; E03.9 Hypothyroidism, unspecified; I12.9 Hypertensive chronic kidney disease with stage 1 through stage 4 chronic kidney disease, or unspecified chronic kidney disease; E11.22 Type 2 diabetes mellitus with diabetic chronic kidney disease; N18.9 Chronic kidney disease, unspecified; G62.9 Polyneuropathy, unspecified; D50.9 Iron deficiency anemia, unspecified; K58.9 Irritable bowel syndrome, unspecified; E55.9 Vitamin D deficiency, unspecified; Z79.4 Long term (current) use of insulin
CPT/HCPCS: 45380; 82962; 88305 ×2; J2704; 811

== ENCOUNTER → 2019-01-24 | Outpatient (CLI) | payer MEDICARE, OTHER ==
[2019-01-24 13:57] LABS: HEMOGLOBIN 9.3 g/dL (12.0-15.5); MEAN CORPUSCULAR HEMOGLOBIN 24.3 pg (27.0-33.4); MEAN CORPUSCULAR VOLUME 76 fl (80-97); PLATELET COUNT 231 10^3/uL (150-450); RED BLOOD COUNT 3.82 10^6/uL (3.72-5.28); RED CELL DISTRIBUTION WIDTH 16.3 % (11.5-14.0); WHITE BLOOD COUNT 13.7 10^3/uL (4.0-10.5)
[2019-01-24 14:12] LABS: ANION GAP 12 (5-19); BLOOD UREA NITROGEN 29 mg/dL (7-20); CALCIUM 8.4 mg/dL (8.4-10.2); CARBON DIOXIDE 24 mmol/L (22-30); CHLORIDE 96 mmol/L (98-107); GLUCOSE 178 mg/dL (75-110); POTASSIUM 4.3 mmol/L (3.6-5.0)
[2019-01-24 17:56] LABS: APPEARANCE,URINE SLIGHTLY-CLOUDY; BILIRUBIN,URINE NEGATIVE (NEGATIVE); COLOR,URINE YELLOW; GLUCOSE, URINE NEGATIVE (NEGATIVE); KETONES,URINE NEGATIVE (NEGATIVE); LEUKOCYTE ESTERASE,URINE LARGE (NEGATIVE); NITRITE,URINE NEGATIVE (NEGATIVE); PROTEIN,URINE 100 mg/dL (NEGATIVE); URINE SPECIFIC GRAVITY 1.009; UROBILINOGEN,URINE NEGATIVE mg/dL (<2.0)
[2019-01-24 18:09] LABS: UR PRO/CREAT RATIO RESULT 1.1 mg/mg (0.0-0.2); URINE CREATININE 97.9 mg/dL (15-278); URINE PROTEIN 111.9 mg/dL (<12)
[2019-01-25 16:53] LABS: IRON(TIBC) 40.9 ug/dL (37-170)
== END ==
LOC: OD 12:47
PROVIDERS: ATTEND Internal Medicine Nephrology
DX: I12.9 Hypertensive chronic kidney disease with stage 1 through stage 4 chronic kidney disease, or unspecified chronic kidney disease (principal); N18.2 Chronic kidney disease, stage 2 (mild); E11.22 Type 2 diabetes mellitus with diabetic chronic kidney disease; R80.9 Proteinuria, unspecified
CPT/HCPCS: 36415; 80048; 81001; 82570; 82728; 83540; 83550; 83735; 84156; 84466; 85027

== ENCOUNTER 2019-01-26 10:14 | Emergency (ER) | payer MEDICARE, OTHER ==
[2019-01-26 11:08] LABS: ABSOLUTE BASOPHILS # (AUTO) 0.1 10^3/uL (0.0-0.2); ABSOLUTE EOSINOPHILS # (AUTO) 0.2 10^3/uL (0.0-0.6); ABSOLUTE LYMPHOCYTES (AUTO) 1.8 10^3/uL (0.5-4.7); ABSOLUTE MONOCYTES (AUTO) 0.8 10^3/uL (0.1-1.4); ABSOLUTE NEUT (AUTO) 8.6 10^3/uL (1.7-8.2); BASOPHILS % (AUTO) 0.5 % (0-2); EOSINOPHILS % (AUTO) 1.6 % (0-6); HEMATOCRIT 31.9 % (36.0-47.0); HEMOGLOBIN 10.1 g/dL (12.0-15.5); LYMPHOCYTES % (AUTO) 15.5 % (13-45); MEAN CORPUSCULAR HEMOGLOBIN 24.3 pg (27.0-33.4); MEAN CORPUSCULAR HGB CONC 31.6 g/dL (32.0-36.0); MEAN CORPUSCULAR VOLUME 77 fl (80-97); MONOCYTES % (AUTO) 6.7 % (3-13); PLATELET COUNT 214 10^3/uL (150-450); RED BLOOD COUNT 4.14 10^6/uL (3.72-5.28); RED CELL DISTRIBUTION WIDTH 16.2 % (11.5-14.0); SEGMENTED NEUTROPHILS % (AUTO) 75.7 % (42-78); TOTAL CELLS COUNTED % (AUTO) 100 %; WHITE BLOOD COUNT 11.3 10^3/uL (4.0-10.5)
[2019-01-26 11:30] LABS: ANION GAP 11 (5-19); BLOOD UREA NITROGEN 26 mg/dL (7-20); CALCIUM 8.7 mg/dL (8.4-10.2); CARBON DIOXIDE 27 mmol/L (22-30); CHLORIDE 99 mmol/L (98-107); GLUCOSE 222 mg/dL (75-110); POTASSIUM 4.3 mmol/L (3.6-5.0)
[2019-01-26 11:44] LABS: APPEARANCE,URINE CLEAR; BILIRUBIN,URINE NEGATIVE (NEGATIVE); COLOR,URINE YELLOW; GLUCOSE, URINE 50 mg/dL (NEGATIVE); KETONES,URINE NEGATIVE (NEGATIVE); LEUKOCYTE ESTERASE,URINE LARGE (NEGATIVE); NITRITE,URINE NEGATIVE (NEGATIVE); PROTEIN,URINE 100 mg/dL (NEGATIVE); URINE SPECIFIC GRAVITY 1.008; UROBILINOGEN,URINE NEGATIVE mg/dL (<2.0)
--- NOTE | 2019-01-26 11:48 | ER Document Report ---
ED General - General Chief Complaint: Abnormal Lab Results Stated Complaint: ABNORMAL LABS Time Seen by Provider: 01/26/19 11:45 Primary Care Provider: James SHAH MD [Primary Care Provider] - Follow up as needed Mode of Arrival: Ambulatory Information source: Patient, Relative, [facility] Records Notes: This 63-year-old female patient was sent to the emergency room by her nephrology office for low sodium and low iron. She had routine outpatient lab work done 2 days ago which showed a serum sodium 132 and hemoglobin of 9.3. She is asymptomatic. She does take iron tablets. TRAVEL OUTSIDE OF THE [place] IN LAST 30 DAYS: No - Related Data Allergies/Adverse Reactions: No Known Allergies Allergy (Verified 11/11/18 11:05) Past Medical History - General Information source: Patient, Relative, [facility] Records - Social History Smoking Status: Unknown if Ever Smoked Cigarette use (# per day): No Chew tobacco use (# tins/day): No Smoking Education Provided: No Frequency of alcohol use: None Drug Abuse: None Lives with: Family Family History: CAD, DM, Hypertension Patient has suicidal ideation: No Patient has homicidal ideation: No - Past Medical History Cardiac Medical History: Reports: Hx Hypercholesterolemia, Hx Hypertension, Hx Peripheral Vascular Disease - Stents placed in legs. Endocrine Medical History: Reports: Hx Diabetes Mellitus Type 2, Hx Hypothyroidism Renal/ Medical History: Reports: Hx Renal Insufficiency GI Medical History: Reports: Hx Endoscopy Musculoskeletal Medical History: Reports Hx Arthritis Psychiatric Medical History: Reports: Hx Dementia Past Surgical History: Reports: Hx Appendectomy, Hx Hysterectomy, Hx Vascular Surgery - Right leg artery stent, Other - Cataract surgery - Immunizations Hx Diphtheria, Pertussis, Tetanus Vaccination: Yes Review of Systems - Review of Systems Constitutional: No symptoms reported EENT: No symptoms reported Cardiovascular: No symptoms reported Respiratory: No symptoms reported Gastrointestinal: No symptoms reported Genitourinary: No symptoms reported Female Genitourinary: Post menopausal Musculoskeletal: Other - Uses a walker Skin: No symptoms reported Hematologic/Lymphatic: No symptoms reported Neurological/Psychological: Dementia Physical Exam - Vital signs Vitals: Temp Pulse Resp BP Pulse Ox 97.4 F 64 16 151/59 H 99 01/26/19 10:20 01/26/19 10:20 01/26/19 10:20 01/26/19 10:20 01/26/19 10:20 Interpretation: Hypertensive - General General appearance: Appears well, Alert In distress: None - HEENT Head: Normocephalic, Atraumatic Eyes: Normal Pupils: PERRL - Respiratory Respiratory status: No respiratory distress Breath sounds: Normal - Cardiovascular Rhythm: Regular Heart sounds: Normal auscultation Murmur: No - Abdominal Inspection: Obese Bowel sounds: Normal Tenderness: Nontender - Back Back: Normal - Extremities General upper extremity: Normal inspection General lower extremity: Normal inspection - Neurological Neuro grossly intact: Yes - Psychological Associated symptoms: Normal affect, Normal mood Course - Re-evaluation Re-evalutation: 01/26/19 12:04 The patient's lab work today shows that her serum sodium has returned back to normal level. Her hemoglobin is at her baseline. Her urine shows large leukocyte esterase and some WBCs, but that is a chronic finding and the only previous cultures grew mixed urogenital marielos. I did discuss this with her nephrology group, and they report that they do not treat that urine unless she is symptomatic. - Vital Signs Vital signs: Temp Pulse Resp BP Pulse Ox 97.9 F 64 12 116/66 96 01/26/19 12:05 01/26/19 10:20 01/26/19 12:05 01/26/19 12:05 01/26/19 12:05 - Laboratory Result Diagrams: 01/26/19 10:35 01/26/19 10:35 Laboratory results interpreted by me: 01/26/19 01/26/19 01/26/19 10:35 10:35 10:45 WBC 11.3 H Hgb 10.1 L Hct 31.9 L MCV 77 L MCH 24.3 L MCHC 31.6 L RDW 16.2 H Absolute Neutrophils 8.6 H BUN 26 H Creatinine 1.53 H Est GFR ( Amer) 41 L Est GFR (Non-Af Amer) 34 L Glucose 222 H Urine Protein 100 H Urine Glucose (UA) 50 H Urine Blood SMALL H Ur Leukocyte Esterase LARGE H Discharge - Discharge Clinical Impression: Hyponatremia, Renal insufficiency Iron deficiency anemia Qualifiers: Iron deficiency anemia type: unspecified iron deficiency Qualified Code(s): D50.9 - Iron deficiency anemia, unspecified Condition: Stable Disposition: HOME, SELF-CARE Additional Instructions: Your lab work today shows that your serum sodium has returned to normal, and your hemoglobin levels are at your baseline. Your kidney function actually looks a little better today than it did 2 days ago. You should continue your regular medications. Follow-up with Dr. Shah as needed. RETURN TO THE EMERGENCY ROOM IF ANY NEW OR WORSENING SYMPTOMS. Referrals: James SHAH MD [Primary Care Provider] - Follow up as needed
[2019-01-26 12:19] VITALS: BP 116/66
== END 2019-01-26 12:19 | disposition home or self-care (01) ==
LOC: ER 10:14
DX: E87.1 Hypo-osmolality and hyponatremia (principal); D50.9 Iron deficiency anemia, unspecified; Z79.899 Other long term (current) drug therapy; N28.9 Disorder of kidney and ureter, unspecified; I10 Essential (primary) hypertension; E11.51 Type 2 diabetes mellitus with diabetic peripheral angiopathy without gangrene; F03.90 Unspecified dementia, unspecified severity, without behavioral disturbance, psychotic disturbance, mood disturbance, and anxiety
CPT/HCPCS: 36415; 80048; 81001; 85025; 99283

== ENCOUNTER 2019-02-02 07:46 | Outpatient (CLI) | payer MEDICARE, OTHER ==
[~2019-02-02 07:46] MED LIST changes: +FERRIC CARBOXYMALTOSE 750 MG in NORMAL SALINE 250 ML IV PRN; -PROPOFOL INJ 200 MG/20 ML VIAL IV ONE
[2019-02-02 08:26] VITALS: BP 182/63
== END 2019-02-02 10:23 | disposition home or self-care (01) ==
LOC: II 07:46 → 5TH 07:51 → II 10:23
PROVIDERS: ATTEND Internal Medicine Nephrology
PROC: 3E033GC Introduction of Other Therapeutic Substance into Peripheral Vein, Percutaneous Approach (ICD-10-PCS; principal; 2019-02-02)
DX: D50.8 Other iron deficiency anemias (principal)
CPT/HCPCS: 96365; J7050; J1439

== ENCOUNTER 2019-05-27 13:18 | Emergency (ER) | payer MEDICARE, OTHER ==
[2019-05-27] MEDS ORDERED: NORMAL SALINE 1000 ML 1,000 ML IV ONE (13:39)
--- NOTE | 2019-05-27 13:39 | ER Document Report ---
ED Medical Screen (RME) - General Chief Complaint: Constipation Stated Complaint: WEAKNESS Time Seen by Provider: 05/27/19 13:30 Primary Care Provider: ERNESTO SHARPE PA [Primary Care Provider] - Follow up as needed Notes: Patient is a 64-year-old female who presents to the emergency department with a chief complaint of weakness. Patient's daughter is at bedside and states that yesterday she was not feeling well. Patient has some abdominal pain in her lower abdomen. Patient has not had a bowel movement in 3 weeks. She states that her abdomen is bloated. Exam: Very firm abdomen. Patient is hypotensive.Blood pressure 86/64. I have greeted and performed a rapid initial assessment of this patient. A comprehensive ED assessment and evaluation of the patient, analysis of test results and completion of medical decision making process will be conducted by an additional ED providers. TRAVEL OUTSIDE OF THE [place] IN LAST 30 DAYS: No - Related Data Allergies/Adverse Reactions: No Known Allergies Allergy (Verified 05/27/19 13:31) Past Medical History - Social History Chew tobacco use (# tins/day): No Frequency of alcohol use: None Drug Abuse: None - Past Medical History Cardiac Medical History: Reports: Hx Coronary Artery Disease - STENTS PLACED IN LEGS, Hx Hypercholesterolemia, Hx Hypertension, Hx Peripheral Vascular Disease - Stents placed in legs. Denies: Hx Heart Attack, Hx Pulmonary Embolism Pulmonary Medical History: Denies: Hx Asthma, Hx Bronchitis, Hx COPD, Hx Pneumonia Neurological Medical History: Denies: Hx Cerebrovascular Accident, Hx Seizures Endocrine Medical History: Reports: Hx Diabetes Mellitus Type 1, Hx Diabetes Mellitus Type 2, Hx Hypothyroidism. Denies: Hx Hyperthyroidism Renal/ Medical History: Reports: Hx Renal Insufficiency. Denies: Hx Peritoneal Dialysis GI Medical History: Reports: Hx Endoscopy. Denies: Hx Cirrhosis, Hx Hepatitis Musculoskeltal Medical History: Reports Hx Arthritis Psychiatric Medical History: Reports: Hx Dementia Denies: Hx Depression Infectious Medical History: Denies: Hx Hepatitis Past Surgical History: Reports: Hx Appendectomy, Hx Hysterectomy, Hx Vascular Surgery - Right leg artery stent, Other - Cataract surgery - Immunizations Hx Diphtheria, Pertussis, Tetanus Vaccination: Yes Physical Exam - Vital signs Vitals: Temp Pulse Resp BP Pulse Ox 98.4 F 68 16 86/64 L 99 05/27/19 13:19 05/27/19 13:19 05/27/19 13:19 05/27/19 13:19 05/27/19 13:19 Course - Vital Signs Vital signs: Temp Pulse Resp BP Pulse Ox 98.4 F 68 16 86/64 L 99 05/27/19 13:31 05/27/19 13:31 05/27/19 13:31 05/27/19 13:31 05/27/19 13:31 Doctor's Discharge - Discharge Referrals: ERNESTO SHARPE PA [Primary Care Provider] - Follow up as needed
--- NOTE | 2019-05-27 14:10 | RADIOLOGY REPORT (SQ) ---
EXAM DESCRIPTION: CT ABD/PELVIS NO ORAL OR IV COMPLETED DATE/TIME: 05/27/2019 1:52 pm REASON FOR STUDY: abdominal pain; firm abdomen COMPARISON: 2018 TECHNIQUE: CT scan of the abdomen and pelvis performed without intravenous or oral contrast. Images reviewed with lung, soft tissue, and bone windows. Reconstructed coronal and sagittal MPR images revi ewed. All images stored on PACS. All CT scanners at this facility use dose modulation, iterative reconstruction, and/or weight based d osing when appropriate to reduce radiation dose to as low as reasonably achievable (ALARA). [facility]: Dose Right [facility]: CareDose [facility]: Dose Right [facility]: Teradose 4D [facility]: [employer] RADIATION DOSE: CT Rad equipment meets quality standard of care and radiation dose reduction techniq ues were employed. CTDIvol: 10.6 mGy. DLP: 590 mGy-cm.mGy. LIMITATIONS: None. FINDINGS: LOWER CHEST: Cardiomegaly. Clear lung bases. NON-CONTRASTED LIVER, SPLEEN, ADRENALS: Evaluation limited by lack of IV contrast. No identified sign ificant masses. PANCREAS: No masses. No peripancreatic inflammatory changes. GALLBLADDER: No identified stones by CT criteria. No inflammatory changes to suggest cholecystitis. RIGHT KIDNEY AND URETER: No solid masses. No significant calcification. No hydronephrosis or hydroure ter. LEFT KIDNEY AND URETER: No solid masses. No significant calcification. No hydronephrosis or hydrouret er. AORTA AND RETROPERITONEUM: Atherosclerotic without aneurysm. BOWEL AND PERITONEAL CAVITY: Large amount of stool throughout the proximal 2/3 of the colon, which is redundant. Consistent with constipation. Fluid distended stomach and small bowel. This looks diff use. No discrete point of obstruction. Distention may largely be related to constipation. No evide nce of ascites or free air. APPENDIX: Not visualized. PELVIS, BLADDER, AND ABDOMINAL WALL:No abnormal masses. No free fluid. Bladder normal. BONES: No significant findings. OTHER: No other significant finding. IMPRESSION: 1. Constipation. Large amount of retained stool. 2. Diffuse small bowel fluid and mild dilatation suggestive of ileus. No fixed point of obstruction otherwise identified. TECHNICAL DOCUMENTATION: JOB ID: [id number] Quality ID # [id number]: Final reports with documentation of one or more dose reduction techniques (e.g., Au tomated exposure control, adjustment of the mA and/or kV according to patient size, use of iterative reconstruction technique) 2010 [employer]- All Rights Reserved Reading location - IP/workstation name: [email or web address]
[2019-05-27 14:19] LABS: ABSOLUTE BASOPHILS # (AUTO) 0.1 10^3/uL (0.0-0.2); ABSOLUTE EOSINOPHILS # (AUTO) 0.1 10^3/uL (0.0-0.6); ABSOLUTE LYMPHOCYTES (AUTO) 2.2 10^3/uL (0.5-4.7); ABSOLUTE MONOCYTES (AUTO) 0.8 10^3/uL (0.1-1.4); ABSOLUTE NEUT (AUTO) 10.6 10^3/uL (1.7-8.2); BASOPHILS % (AUTO) 0.6 % (0-2); EOSINOPHILS % (AUTO) 0.9 % (0-6); HEMATOCRIT 33.6 % (36.0-47.0); HEMOGLOBIN 10.7 g/dL (12.0-15.5); MEAN CORPUSCULAR HEMOGLOBIN 24.9 pg (27.0-33.4); MEAN CORPUSCULAR VOLUME 78 fl (80-97); MONOCYTES % (AUTO) 5.8 % (3-13); PLATELET COUNT 207 10^3/uL (150-450); RED BLOOD COUNT 4.31 10^6/uL (3.72-5.28); RED CELL DISTRIBUTION WIDTH 16.5 % (11.5-14.0); SEGMENTED NEUTROPHILS % (AUTO) 76.7 % (42-78); TOTAL CELLS COUNTED % (AUTO) 100 %; WHITE BLOOD COUNT 13.9 10^3/uL (4.0-10.5)
[2019-05-27 14:29] LABS: ALBUMIN 3.7 g/dL (3.5-5.0); ALKALINE PHOSPHATASE 143 U/L (38-126); ANION GAP 14 (5-19); ASPARTATE AMINO TRANSFERASE 36 U/L (14-36); BILIRUBIN,DIRECT 0.2 mg/dL (0.0-0.4); BILIRUBIN,TOTAL 0.4 mg/dL (0.2-1.3); BLOOD UREA NITROGEN 40 mg/dL (7-20); CALCIUM 8.7 mg/dL (8.4-10.2); CARBON DIOXIDE 24 mmol/L (22-30); CHLORIDE 97 mmol/L (98-107); GLUCOSE 245 mg/dL (75-110); POTASSIUM 4.7 mmol/L (3.6-5.0); TOTAL PROTEIN 7.2 g/dL (6.3-8.2)
[2019-05-27 18:19] LABS: APPEARANCE,URINE CLEAR; BILIRUBIN,URINE NEGATIVE (NEGATIVE); COLOR,URINE STRAW; GLUCOSE, URINE NEGATIVE (NEGATIVE); KETONES,URINE NEGATIVE (NEGATIVE); LEUKOCYTE ESTERASE,URINE LARGE (NEGATIVE); NITRITE,URINE NEGATIVE (NEGATIVE); PROTEIN,URINE 30 mg/dL (NEGATIVE); URINE SPECIFIC GRAVITY 1.004; UROBILINOGEN,URINE NEGATIVE mg/dL (<2.0)
[2019-05-27] MEDS ORDERED: MINERAL OIL 30 ML UDCUP PR ONE (18:55)
--- NOTE | 2019-05-27 18:56 | ER Document Report ---
ED GI/ - General Chief Complaint: Constipation Stated Complaint: WEAKNESS Time Seen by Provider: 05/27/19 13:30 Primary Care Provider: ERNESTO SHARPE PA [NO LOCAL MD] - Follow up as needed Mode of Arrival: Wheelchair Information source: Patient, Relative - Daughter Notes: 64-year-old female presenting to the emergency department with chief complaint of abdominal distention, abdominal pain and no bowel movement in the last 3 weeks. Patient reports she is tried multiple [id number] medications without relief. She reports a history of constipation. She denies any nausea, vomiting or fevers. TRAVEL OUTSIDE OF THE [place] IN LAST 30 DAYS: No - Related Data Allergies/Adverse Reactions: No Known Allergies Allergy (Verified 05/27/19 13:31) Past Medical History - Social History Smoking Status: Never Smoker Chew tobacco use (# tins/day): No Frequency of alcohol use: None Drug Abuse: None Family History: CAD, DM, Hypertension Patient has suicidal ideation: No Patient has homicidal ideation: No - Past Medical History Cardiac Medical History: Reports: Hx Coronary Artery Disease - STENTS PLACED IN LEGS, Hx Hypercholesterolemia, Hx Hypertension, Hx Peripheral Vascular Disease - Stents placed in legs. Denies: Hx Heart Attack, Hx Pulmonary Embolism Pulmonary Medical History: Denies: Hx Asthma, Hx Bronchitis, Hx COPD, Hx Pneumonia Neurological Medical History: Denies: Hx Cerebrovascular Accident, Hx Seizures Endocrine Medical History: Reports: Hx Diabetes Mellitus Type 1, Hx Diabetes Mellitus Type 2, Hx Hypothyroidism. Denies: Hx Hyperthyroidism Renal/ Medical History: Reports: Hx Renal Insufficiency. Denies: Hx Per itoneal Dialysis GI Medical History: Reports: Hx Endoscopy. Denies: Hx Cirrhosis, Hx Hepatitis Musculoskeletal Medical History: Reports Hx Arthritis Psychiatric Medical History: Reports: Hx Dementia Denies: Hx Depression Infectious Medical History: Denies: Hx Hepatitis Past Surgical History: Reports: Hx Appendectomy, Hx Hysterectomy, Hx Vascular Surgery - Right leg artery stent, Other - Cataract surgery - Immunizations Hx Diphtheria, Pertussis, Tetanus Vaccination: Yes Physical Exam - Vital signs Vitals: Temp Pulse Resp BP Pulse Ox 98.4 F 68 16 86/64 L 99 05/27/19 13:19 05/27/19 13:19 05/27/19 13:19 05/27/19 13:19 05/27/19 13:19 - Notes Notes: PHYSICAL EXAMINATION: GENERAL: Well-appearing, well-nourished and in no acute distress. HEAD: Atraumatic, normocephalic. EYES: Pupils equal round and reactive to light, extraocular movements intact, conjunctiva are normal. ENT: Nares patent, oropharynx clear without exudates. Moist mucous membranes. NECK: Normal range of motion, supple without lymphadenopathy LUNGS: Breath sounds clear to auscultation bilaterally and equal. No wheezes r ales or rhonchi. HEART: Regular rate and rhythm without murmurs ABDOMEN: Firm, distended abdomen. No guarding, no rebound. No masses appreciated. Female : deferred Musculoskeletal: Normal range of motion, no pitting or edema. No cyanosis. NEUROLOGICAL: Cranial nerves grossly intact. Normal speech, normal gait. Normal sensory, motor exams PSYCH: Normal mood, normal affect. SKIN: Warm, Dry, normal turgor, no rashes or lesions noted. Course - Re-evaluation Re-evalutation: Patient appears well, nontoxic, apparently she was hypotensive on arrival. This resolved quickly on its own and patient is now actually hypertensive although she has not had her nighttime blood pressure medications. CT the abdomen pelvis shows constipation, large amount of retained stool, diffuse small bowel fluid and mild dilatation suggestive of ileus. No obstruction identified. 05/27/19 18:[address] Erwin, patient's primary care physician. His recommendation is to give patient a soapsuds enema and if she has a large bowel movement and feels better that she can safely be discharged home. This was discussed with patient and family member, they are both in agreements with this plan. Orders placed. 05/27/19 21:28 Nursing staff report that patient had a good large bowel movement after administration of the enema. Patient will be discharged home at this time, she will follow-up with Dr. Erwin's office. - Vital Signs Vital signs: Temp Pulse Resp BP Pulse Ox 98 F 65 13 195/89 H 98 05/27/19 21:46 05/27/19 21:46 05/27/19 21:46 05/27/19 21:46 05/27/19 21:46 - Laboratory Result Diagrams: 05/27/19 14:00 05/27/19 14:00 Laboratory results interpreted by me: 05/27/19 05/27/19 05/27/19 14:00 14:00 17:39 WBC 13.9 H Hgb 10.7 L Hct 33.6 L MCV 78 L MCH 24.9 L RDW 16.5 H Absolute Neuts (auto) 10.6 H Sodium 134.9 L Chloride 97 L BUN 40 H Creatinine 2.18 H Est GFR ( Amer) 27 L Est GFR (MDRD) Non-Af 23 L Glucose 245 H Alkaline Phosphatase 143 H Urine Protein 30 H Urine Blood SMALL H Ur Leukocyte Esterase LARGE H Discharge - Discharge Clinical Impression: Abdominal pain Qualifiers: Abdominal location: unspecified location Qualified Code(s): R10.9 - Unspecified abdominal pain Constipation Qualifiers: Constipation type: unspecified constipation type Qualified Code(s): K59.00 - Constipation, unspecified Condition: Stable Disposition: HOME, SELF-CARE Instructions: Constipation ([facility]) Additional Instructions: You were seen in the emergency department today and diagnosed with severe constipation. Luckily you had a good bowel movement after the enema was given here in the emergency room. Please take MiraLAX 1 capful twice daily to help get your bowel movements regular. Please follow-up with Dr. Erwin's office for further management of your chronic constipation. Prescriptions: Polyethylene Glycol 3350 [Miralax] 1 cap PO BID #527 powder Referrals: ERNESTO SHARPE PA [NO LOCAL MD] - Follow up as needed
[2019-05-27 21:47] VITALS: BP 195/89
== END 2019-05-27 21:47 | disposition home or self-care (01) ==
LOC: ER 13:18
DX: K59.00 Constipation, unspecified (principal); R10.30 Lower abdominal pain, unspecified; I25.10 Atherosclerotic heart disease of native coronary artery without angina pectoris; E11.51 Type 2 diabetes mellitus with diabetic peripheral angiopathy without gangrene; I10 Essential (primary) hypertension; Z79.899 Other long term (current) drug therapy
CPT/HCPCS: 36415; 85025; 80053; 81001; 74176; A9270; J7030; 96360; 99284; J3490

== ENCOUNTER 2019-07-30 13:54 | Emergency (ER) | payer MEDICARE, OTHER ==
[2019-07-30 13:59] VITALS: BP 167/72
[2019-07-30] MEDS ORDERED: DIPH/PERTUSS(ACELL)/TETANUS VAC/PF 0.5 ML SYR (>=10YO) IM ONE (14:07)
[2019-07-30] MEDS ORDERED: ACETAMINOPHEN 325 MG TABLET PO ONE (14:07)
--- NOTE | 2019-07-30 14:10 | ER Document Report ---
ED Medical Screen (RME) - General Chief Complaint: Laceration Stated Complaint: LACERATION/LEFT MIDDLE FINGER Time Seen by Provider: 07/30/19 13:59 Primary Care Provider: ERNESTO SHARPE PA [Primary Care Provider] - Follow up as needed Notes: 64-year-old female presented to ED for laceration to the left middle finger. It does go through the fingernail to the end of the finger. Patient has been ordered tetanus, Tylenol, and x-ray of the finger. She will need sutures to repair this finger. Patient is alert oriented respirations regular nonlabored. Speaking in full sentences. Bleeding is under control at this time I did remove the washcloth they had on and put a 4 x 4 and it is started bleeding again when he moved the washcloth. Patient is on Plavix. I have greeted and performed a rapid initial assessment of this patient. A comprehensive ED assessment and evaluation of the patient, analysis of test results and completion of medical decision making process will be conducted by an additional ED providers. TRAVEL OUTSIDE OF THE [place] IN LAST 30 DAYS: No - Related Data Allergies/Adverse Reactions: No Known Allergies Allergy (Verified 05/27/19 13:31) Past Medical History - Past Medical History Cardiac Medical History: Reports: Hx Coronary Artery Disease - STENTS PLACED IN LEGS, Hx Hypercholesterolemia, Hx Hypertension, Hx Peripheral Vascular Disease - Stents placed in legs. Denies: Hx Heart Attack, Hx Pulmonary Embolism Pulmonary Medical History: Denies: Hx Asthma, Hx Bronchitis, Hx COPD, Hx Pneumonia Neurological Medical History: Denies: Hx Cerebrovascular Accident, Hx Seizures Endocrine Medical History: Reports: Hx Diabetes Mellitus Type 1, Hx Diabetes Mellitus Type 2, Hx Hypothyroidism. Denies: Hx Hyperthyroidism Renal/ Medical History: Reports: Hx Renal Insufficiency. Denies: Hx Peritoneal Dialysis GI Medical History: Reports: Hx Endoscopy. Denies: Hx Cirrhosis, Hx Hepatitis Musculoskeltal Medical History: Reports Hx Arthritis Psychiatric Medical History: Reports: Hx Dementia Denies: Hx Depression Infectious Medical History: Denies: Hx Hepatitis Past Surgical History: Reports: Hx Appendectomy, Hx Hysterectomy, Hx Vascular Surgery - Right leg artery stent, Other - Cataract surgery - Immunizations Hx Diphtheria, Pertussis, Tetanus Vaccination: Yes Physical Exam - Vital signs Vitals: Temp Pulse Resp BP Pulse Ox 97.5 F 62 18 167/72 H 100 07/30/19 13:58 07/30/19 13:58 07/30/19 13:58 07/30/19 13:58 07/30/19 13:58 Course - Vital Signs Vital signs: Temp Pulse Resp BP Pulse Ox 97.5 F 62 18 167/72 H 100 07/30/19 13:58 07/30/19 13:58 07/30/19 13:58 07/30/19 13:58 07/30/19 13:58 Doctor's Discharge - Discharge Referrals: ERNESTO SHARPE PA [Primary Care Provider] - Follow up as needed
[2019-07-30] MEDS ORDERED: LIDOCAINE 1% INJ-PF (10 MG/ML) 30 ML SDV INJ ONE (14:45)
[2019-07-30] MEDS ORDERED: LIDOCAINE 1% INJ (10 MG/ML) 10 ML MDV INJ ONE (14:45)
[2019-07-30] MEDS ORDERED: CEPHALEXIN 500 MG CAPSULE PO ONE (14:46)
--- NOTE | 2019-07-30 14:46 | RADIOLOGY REPORT (SQ) ---
EXAM DESCRIPTION: FINGER LEFT COMPLETED DATE/TIME: 07/30/2019 2:36 pm REASON FOR STUDY: Laceration through the nail COMPARISON: None. NUMBER OF VIEWS: Three views. TECHNIQUE: AP, lateral, and oblique images acquired of the left third finger. LIMITATIONS: None. FINDINGS: MINERALIZATION: Normal. BONES: No acute fracture or dislocation. No worrisome bone lesions. SOFT TISSUES: Limited soft tissue detail due to overlying bandage. No foreign body. OTHER: No other significant finding. IMPRESSION: NO FRACTURE. NO RADIOPAQUE FOREIGN BODY. TECHNICAL DOCUMENTATION: JOB ID: [id number] 2011 [employer]- All Rights Reserved Reading location - IP/workstation name: [email or web address]
--- NOTE | 2019-07-30 14:49 | ER Document Report ---
ED General - General Chief Complaint: Laceration Stated Complaint: LACERATION/LEFT MIDDLE FINGER Time Seen by Provider: 07/30/19 13:59 Primary Care Provider: ERNESTO SHARPE PA [Primary Care Provider] - Follow up as needed Notes: Patient is a 64-year-old -[place] female with past medical history significant for diabetes and anticoagulation on Plavix and aspirin who presents to the emergency department with a chief complaint of left middle finger injury that occurred prior to arrival. The patient reports that she was chopping chicken with a meat sylvain when she accidentally cut her distal left middle f jon. She states she irrigated the wound, wrapped it in a towel and came to the emergency department. She is unsure of her last tetanus. She denies any numbness tingling or weakness. TRAVEL OUTSIDE OF THE [place] IN LAST 30 DAYS: No - Related Data Allergies/Adverse Reactions: No Known Allergies Allergy (Verified 05/27/19 13:31) Past Medical History - Social History Smoking Status: Never Smoker Family History: CAD, DM, Hypertension Patient has suicidal ideation: No Patient has homicidal ideation: No - Past Medical History Cardiac Medical History: Reports: Hx Coronary Artery Disease - STENTS PLACED IN LEGS, Hx Hypercholesterolemia, Hx Hypertension, Hx Peripheral Vascular Disease - Stents placed in legs. Denies: Hx Heart Attack, Hx Pulmonary Embolism Pulmonary Medical History: Denies: Hx Asthma, Hx Bronchitis, Hx COPD, Hx Pneumonia Neurological Medical History: Denies: Hx Cerebrovascular Accident, Hx Seizures Endocrine Medical History: Reports: Hx Diabetes Mellitus Type 1, Hx Diabetes Mellitus Type 2, Hx Hypothyroidism. Denies: Hx Hyperthyroidism Renal/ Medical History: Reports: Hx Renal Insufficiency. Denies: Hx Peritoneal Dialysis GI Medical History: Reports: Hx Endoscopy. Denies: Hx Cirrhosis, Hx Hepatitis Musculoskeletal Medical History: Reports Hx Arthritis Psychiatric Medical History: Reports: Hx Dementia Denies: Hx Depression Infectious Medical History: Denies: Hx Hepatitis Past Surgical History: Reports: Hx Appendectomy, Hx Hysterectomy, Hx Vascular Surgery - Right leg artery stent, Other - Cataract surgery - Immunizations Hx Diphtheria, Pertussis, Tetanus Vaccination: Yes Review of Systems - Review of Systems Musculoskeletal: Other - Finger pain Skin: Other - Laceration -: Yes All other systems reviewed and negative Physical Exam - Vital signs Vitals: Temp Pulse Resp BP Pulse Ox 97.5 F 62 18 167/72 H 100 07/30/19 13:58 07/30/19 13:58 07/30/19 13:58 07/30/19 13:58 07/30/19 13:58 - General General appearance: Appears well, Alert In distress: None - Respiratory Respiratory status: No respiratory distress Chest status: Nontender Breath sounds: Normal Chest palpation: Normal - Cardiovascular Rhythm: Regular Heart sounds: Normal auscultation - Extremities General upper extremity: Normal inspection, Nontender, Normal color, Normal ROM, Normal temperature General lower extremity: Normal inspection, Nontender, Normal color, Normal ROM, Normal temperature, Normal weight bearing. No: Genesis's sign Hand: Other - Laceration through the center nailbed in an oblique fashion to the left dorsal middle finger involving the small edge of the skin on the radial edge of the same finger. Wound edges are very well approximated. Hemostasis is largely maintained. No foreign bodies visualized. Good capillary refill distal to the wound. Patient has full strength and range of motion of the affected digit with and without resistance - Neurological Neuro grossly intact: Yes Cognition: Normal Orientation: AAOx4 Elizabeth Coma Scale Eye Opening: Spontaneous Cedar Coma Scale Verbal: Oriented Cedar Coma Scale Motor: Obeys Commands Elizabeth Coma Scale Total: 15 Speech: Normal Motor strength normal: LUE, RUE, LLE, RLE Sensory: Normal - Psychological Associated symptoms: Normal affect, Normal mood - Skin Skin Temperature: Warm Skin Moisture: Dry Skin Color: Other - Normal except affected area and finger Course - Re-evaluation Re-evalutation: 07/30/19 15:54 Patient tolerated wound repair well. She will seek wound recheck in 2 to 3 days . Suture removal in approximately 7 to 10 days. Counseled him regarding importance of outpatient follow-up and advised to return here or any ER immediately with any new persistent or worsening symptoms. They verbalized understood and agreed. Patient will be given Keflex for prophylaxis given the mechanism and a short course of pain medication. We discussed things to avoid with an open wound. We also discussed narcotic pain medications, not to drive or attempt to ambulate much while taking them as they make her drowsy, altered and increase her risk for falls. She and her family verbalized understood and agreed. - Vital Signs Vital signs: Temp Pulse Resp BP Pulse Ox 97.5 F 62 18 167/72 H 100 07/30/19 13:58 07/30/19 13:58 07/30/19 13:58 07/30/19 13:58 07/30/19 13:58 Procedures - Laceration/Wound Repair Left Finger 3rd digit Time completed: 15:53 Wound length (cm): 2 Wound's Depth, Shape: Superficial, Linear, Nail-avulsed Laceration pre-procedure: Sterile PPE donned, Chloraprep applied, Sterile drapes applied Anesthetic type: 1% Lidocaine Volume Anesthetic (mLs): 5 Wound explored: Clean Irrigated w/ Saline (mLs): 100 Wound Repaired With: Sutures Suture Size/Type: 4:0, Prolene Post-procedure wound care: Sterile dressing applied, Splint applied Post-procedure NV exam normal: Yes Complications: No Discharge - Discharge Clinical Impression: Finger laceration Qualifiers: Encounter type: initial encounter Finger: middle finger Damage to nail status: with damage Foreign body presence: unspecified Laterality: left Qualified Code(s): S61.313A - Laceration without foreign body of left middle finger with damage to nail, initial encounter Condition: Stable Disposition: HOME, SELF-CARE Instructions: Laceration Care ([facility]) Additional Instructions: Follow-up with your regular doctor in 2 to 3 days for reevaluation. Return here or any ER immediately with any new, persistent or worsening symptoms. Suture removal in approximately 7 to 10 days Prescriptions: Cephalexin Monohydrate [Keflex 500 mg Capsule] 500 mg PO BID 7 Days #10 capsule Hydrocodone/Acetaminophen [Ashley 5-325 mg Tablet] 1 tab PO Q6 PRN #12 tablet PRN Reason: Referrals: ERNESTO SHARPE PA [Primary Care Provider] - Follow up as needed
== END 2019-07-30 16:35 | disposition home or self-care (01) ==
LOC: ER 13:54
PROC: 0HQGXZZ Repair Left Hand Skin, External Approach (ICD-10-PCS; principal; 2019-07-30)
DX: S61.313A Laceration without foreign body of left middle finger with damage to nail, initial encounter (principal); W26.0XXA Contact with knife, initial encounter; I25.10 Atherosclerotic heart disease of native coronary artery without angina pectoris; I10 Essential (primary) hypertension; E11.9 Type 2 diabetes mellitus without complications
CPT/HCPCS: 12001; 99283; 90471; 73140; 90715; A9270 ×2

== ENCOUNTER 2019-08-05 18:10 | Emergency (ER) | payer MEDICARE ==
--- NOTE | 2019-08-05 18:33 | ER Document Report ---
ED Medical Screen (RME) - General Chief Complaint: Leg Swelling Stated Complaint: LEG SWELLING,LOOSE SUTURES IN FINGER Time Seen by Provider: 08/05/19 18:29 Primary Care Provider: ERNESTO SHARPE PA [Primary Care Provider] - Follow up as needed TRAVEL OUTSIDE OF THE [place] IN LAST 30 DAYS: No - HPI Notes: 08/05/19 18:34 Patient is a 64-year-old female with a history of diabetes, hypertension, peripheral vascular disease with stents in both legs who presents complaining of right greater than left lower extremity swelling and soreness. Patient states that the swelling has developed over the past couple days. Daughter states that she is also been constipated despite use of an enema. Patient would also like her finger evaluated as she tried to cut out some sutures status post placement about 6 days ago. No fever, chest pain, shortness of breath, vomiting. I will notify ultrasound to perform venous Doppler to the right lower extremity as well as spot checking the arteries and performing arterial Doppler thereafter if needed. I have treated and performed a rapid initial assessment of this patient. A comprehensive ED assessment and evaluation of the patient, analysis of test results and completion of medical decision making process will be conducted by additional ED providers. PHYSICAL EXAMINATION: GENERAL: Well-appearing, well-nourished and in no acute distress. A&Ox4. Answers questions appropriately. Legs: There is pitting edema bilaterally approximately 2+. Feet are warm with good capillary refill. No obviously palpable pulses. - Related Data Allergies/Adverse Reactions: No Known Allergies Allergy (Verified 08/05/19 18:29) Past Medical History - Past Medical History Cardiac Medical History: Reports: Hx Coronary Artery Disease - STENTS PLACED IN LEGS, Hx Hypercholesterolemia, Hx Hypertension, Hx Peripheral Vascular Disease - Stents placed in legs. Denies: Hx Heart Attack, Hx Pulmonary Embolism Pulmonary Medical History: Denies: Hx Asthma, Hx Bronchitis, Hx COPD, Hx Pneumonia Neurological Medical History: Denies: Hx Cerebrovascular Accident, Hx Seizures Endocrine Medical History: Reports: Hx Diabetes Mellitus Type 1, Hx Diabetes Mellitus Type 2, Hx Hypothyroidism. Denies: Hx Hyperthyroidism Renal/ Medical History: Reports: Hx Renal Insufficiency. Denies: Hx Peritoneal Dialysis GI Medical History: Reports: Hx Endoscopy. Denies: Hx Cirrhosis, Hx Hepatitis Musculoskeltal Medical History: Reports Hx Arthritis Psychiatric Medical History: Reports: Hx Dementia Denies: Hx Depression Infectious Medical History: Denies: Hx Hepatitis Past Surgical History: Reports: Hx Appendectomy, Hx Hysterectomy, Hx Vascular Surgery - Right leg artery stent, Other - Cataract surgery - Immunizations Hx Diphtheria, Pertussis, Tetanus Vaccination: Yes Doctor's Discharge - Discharge Referrals: ERNESTO SHARPE PA [Primary Care Provider] - Follow up as needed
--- NOTE | 2019-08-05 19:38 | RADIOLOGY REPORT (SQ) ---
EXAM DESCRIPTION: KUB/ABDOMEN (SINGLE VIEW) COMPLETED DATE/TIME: 08/05/2019 7:17 pm REASON FOR STUDY: constipation COMPARISON: Acute abdominal series 05/28/2017 NUMBER OF VIEWS: One view. TECHNIQUE: Supine radiographic image of the abdomen acquired. LIMITATIONS: None. FINDINGS: BOWEL GAS PATTERN: Prominent gas and stool filled colon. Normal small bowel gas pattern. CALCIFICATIONS: No suspicious calcifications. SOFT TISSUES: No gross mass or suggestion of organomegaly. HARDWARE: None in the abdomen. BONES: No acute fracture. No worrisome bone lesions. OTHER: No other significant finding. IMPRESSION: Prominent gas and stool-filled colon. TECHNICAL DOCUMENTATION: JOB ID: [id number] 2010 [employer]- All Rights Reserved Reading location - IP/workstation name: [email or web address]
--- NOTE | 2019-08-05 19:40 | RADIOLOGY REPORT (SQ) ---
EXAM DESCRIPTION: CHEST 2 VIEWS COMPLETED DATE/TIME: 08/05/2019 7:17 pm REASON FOR STUDY: LE edema COMPARISON: Chest radiographs 08/28/2016 EXAM PARAMETERS: NUMBER OF VIEWS: two views TECHNIQUE: Digital Frontal and Lateral radiographic views of the chest acquired. RADIATION DOSE: NA LIMITATIONS: none FINDINGS: LUNGS AND PLEURA: No opacities, masses or pneumothorax. No pleural effusion. MEDIASTINUM AND HILAR STRUCTURES: No masses or contour abnormalities. HEART AND VASCULAR STRUCTURES: Heart normal size. No evidence for failure. BONES: No acute findings. HARDWARE: None in the chest. OTHER: No other significant finding. IMPRESSION: NO ACUTE RADIOGRAPHIC FINDING IN THE CHEST. TECHNICAL DOCUMENTATION: JOB ID: [id number] 2010 [employer]- All Rights Reserved Reading location - IP/workstation name: [email or web address]
[2019-08-05] MEDS ORDERED: ACETAMINOPHEN 325 MG TABLET PO ONE (20:42)
--- NOTE | 2019-08-05 20:44 | ER Document Report ---
ED General - General Chief Complaint: Leg Swelling Stated Complaint: LEG SWELLING,LOOSE SUTURES IN FINGER Time Seen by Provider: 08/05/19 18:29 Primary Care Provider: ERNESTO SHARPE PA [Primary Care Provider] - Follow up as needed Notes: Patient is a 64-year-old female that comes to the emergency department for multi ple complaints. Chief complaint is swelling on her lower extremities, on the right greater than left, more noticeable over the past couple of days. She does have a history of peripheral vascular disease and stents in both lower extremities. Patient also states she is constipated, she started using a stool softener over the past couple of days but has barely had any bowel movements recently. She also states she thought she saw some bleeding, thought it might be vaginal did not see this recently. She has had a total hysterectomy. She denies any severe abdominal pain, denies vomiting or fever. Patient also states she wants her right index finger checked, she had sutures placed in this about 6 days ago but she was told to take these in for 10 days. She states it was bleeding yesterday but not today. Past medical history includes type 2 diabetes, hypertension. Daughter at bedside. TRAVEL OUTSIDE OF THE [place] IN LAST 30 DAYS: No - Related Data Allergies/Adverse Reactions: No Known Allergies Allergy (Verified 08/05/19 18:29) Past Medical History - General Information source: Patient - Social History Smoking Status: Never Smoker Chew tobacco use (# tins/day): No Frequency of alcohol use: None Drug Abuse: None Lives with: Family Family History: CAD, DM, Hypertension Patient has suicidal ideation: No Patient has homicidal ideation: No - Past Medical History Cardiac Medical History: Reports: Hx Coronary Artery Disease - STENTS PLACED IN LEGS, Hx Hypercholesterolemia, Hx Hypertension, Hx Peripheral Vascular Disease - Stents placed in legs. Denies: Hx Heart Attack, Hx Pulmonary Embolism Pulmonary Medical History: Denies: Hx Asthma, Hx Bronchitis, Hx COPD, Hx Pneumonia Neurological Medical History: Denies: Hx Cerebrovascular Accident, Hx Seizures Endocrine Medical History: Reports: Hx Diabetes Mellitus Type 1, Hx Diabetes Mellitus Type 2, Hx Hypothyroidism. Denies: Hx Hyperthyroidism Renal/ Medical History: Reports: Hx Renal Insufficiency. Denies: Hx Peritoneal Dialysis GI Medical History: Reports: Hx Endoscopy. Denies: Hx Cirrhosis, Hx Hepatitis Musculoskeletal Medical History: Reports Hx Arthritis Psychiatric Medical History: Reports: Hx Dementia Denies: Hx Depression Infectious Medical History: Denies: Hx Hepatitis Past Surgical History: Reports: Hx Appendectomy, Hx Hysterectomy, Hx Vascular Surgery - Right leg artery stent, Other - Cataract surgery - Immunizations Hx Diphtheria, Pertussis, Tetanus Vaccination: Yes Review of Systems - Review of Systems Constitutional: See HPI EENT: No symptoms reported Cardiovascular: See HPI Respiratory: No symptoms reported Gastrointestinal: See HPI Genitourinary: No symptoms reported Female Genitourinary: No symptoms reported Musculoskeletal: See HPI Skin: No symptoms reported Hematologic/Lymphatic: See HPI Neurological/Psychological: No symptoms reported Physical Exam - Vital signs Vitals: Temp Pulse Resp BP Pulse Ox 98.1 F 62 20 167/63 H 100 08/05/19 18:26 08/05/19 18:26 08/05/19 18:08/05/19 18:08/05/19 18:26 - Notes Notes: GENERAL: Alert, interacts well. No acute distress. HEAD: Normocephalic, atraumatic. EYES: Pupils equal, round, and reactive to light. Extraocular movements intact. ENT: Oral mucosa moist, tongue midline. Oropharynx unremarkable. Airway patent. Nares patent, no nasal septal hematoma, TM's intact. NECK: Full range of motion. Supple. Trachea midline. LUNGS: Clear to auscultation bilaterally, no wheezes, rales, or rhonchi. No respiratory distress. HEART: Regular rate and rhythm. No murmur ABDOMEN: Questionable mild distention but no tenderness, guarding, rigidity noted. Bowel sounds present throughout. GENITOURINARY: Deferred EXTREMITIES: There are sutures in the left index finger in the nail and adjacent to the nail. There is no noted bleeding, drainage, tenderness, erythema, swelling. Range of motion present. Moves all 4 extremities spontaneously. Borderline edema of bilateral lower extremities, slightly faint dorsalis pedis pulses but normal radial pulses. No cyanosis. BACK: no cervical, thoracic, lumbar midline tenderness. No saddle anesthesia, normal distal neurovascular exam. Moves all extremities in full range of motion. NEUROLOGICAL: Alert and oriented x3. Normal speech. Cranial nerves II through XII grossly intact. PSYCH: Normal affect, normal mood. SKIN: Warm, dry, normal turgor. No rashes or lesions noted. Course - Re-evaluation Re-evalutation: Patient is humorous, joking, well-appearing on exam. She does have questionable abdominal distention but her abdomen is soft and nontender. She reports she is constipated. This is definitely confirmed with her x-ray which shows large amount of retained stool. No obstruction noted. CBC nonspecific, chemistry n onspecific as well. Patient does not have any overt lower extremity edema. Dopplers performed of both arterial and venous, venous did not show a clot or concerning finding, Doppler does show expected blood flow to both extremities with no concerning changes based on patient's history. Chest x-ray unremarkable without failure. Patient has not had any chest pain or shortness of breath. Patient's left index finger suture does not appear to be infected and has full range of motion. Discussed results with patient and daughter. They are requesting thyroid study because of patient's poor sleeping, this was performed and provided to them, this was unremarkable. They are requesting enema, I feel this is appropriate. Patient had excellent results with the enema with multiple bowel movements and complete resolution of her symptoms afterwards. She states appreciation. Discussed home care, follow-up, return precautions. They state understanding and agreement. Stable at time of discharge. - Vital Signs Vital signs: Temp Pulse Resp BP Pulse Ox 97.3 F 64 20 190/65 H 100 08/06/19 02:12 08/06/19 02:12 08/05/19 18:30 08/06/19 02:12 08/06/19 02:12 - Laboratory Result Diagrams: 08/05/19 20:45 08/05/19 21:45 Laboratory results interpreted by me: 08/05/19 08/05/19 08/05/19 20:45 20:45 21:45 WBC 11.2 H RBC 3.61 L Hgb 9.3 L Hct 28.8 L MCH 25.8 L RDW 16.9 H Carbon Dioxide 31 H BUN 25 H Creatinine 1.49 H Est GFR ( Amer) 42 L Est GFR (MDRD) Non-Af 35 L Glucose 64 L Alkaline Phosphatase 129 H NT-Pro-B Natriuret Pep Urine Protein 100 H 08/05/19 21:45 WBC RBC Hgb Hct MCH RDW Carbon Dioxide BUN Creatinine Est GFR ( Amer) Est GFR (MDRD) Non-Af Glucose Alkaline Phosphatase NT-Pro-B Natriuret Pep 648 H Urine Protein Discharge - Discharge Clinical Impression: Swelling of lower extremity Abdominal pain Qualifiers: Abdominal location: generalized Qualified Code(s): R10.84 - Generalized abdominal pain Constipation Qualifiers: Constipation type: unspecified constipation type Qualified Code(s): K59.00 - Constipation, unspecified Condition: Stable Disposition: HOME, SELF-CARE Additional Instructions: Your Doppler does not show any concerning new findings including the flow to your legs. No blood clot is noted. You were very constipated and have therefore received the enema, consider [id number] stool softener such as MiraLAX, drink plenty of fluids. Follow-up with primary care in regards to this. Return if you worsen including return or severe abdominal pain, developing redness or increased swelling of your lower extremities, fever, or any other concerning symptoms. Referrals: ERNESTO SHARPE PA [Primary Care Provider] - Follow up as needed
[2019-08-05 21:05] LABS: ABSOLUTE BASOPHILS # (AUTO) 0.1 10^3/uL (0.0-0.2); ABSOLUTE EOSINOPHILS # (AUTO) 0.3 10^3/uL (0.0-0.6); ABSOLUTE LYMPHOCYTES (AUTO) 2.3 10^3/uL (0.5-4.7); ABSOLUTE MONOCYTES (AUTO) 0.8 10^3/uL (0.1-1.4); ABSOLUTE NEUT (AUTO) 7.7 10^3/uL (1.7-8.2); BASOPHILS % (AUTO) 0.9 % (0-2); EOSINOPHILS % (AUTO) 2.9 % (0-6); HEMATOCRIT 28.8 % (36.0-47.0); HEMOGLOBIN 9.3 g/dL (12.0-15.5); LYMPHOCYTES % (AUTO) 20.2 % (13-45); MEAN CORPUSCULAR HEMOGLOBIN 25.8 pg (27.0-33.4); MEAN CORPUSCULAR HGB CONC 32.3 g/dL (32.0-36.0); MEAN CORPUSCULAR VOLUME 80 fl (80-97); MONOCYTES % (AUTO) 7.4 % (3-13); PLATELET COUNT 221 10^3/uL (150-450); RED BLOOD COUNT 3.61 10^6/uL (3.72-5.28); RED CELL DISTRIBUTION WIDTH 16.9 % (11.5-14.0); SEGMENTED NEUTROPHILS % (AUTO) 68.6 % (42-78); TOTAL CELLS COUNTED % (AUTO) 100 %; WHITE BLOOD COUNT 11.2 10^3/uL (4.0-10.5)
--- NOTE | 2019-08-05 21:57 | EKG REPORT ---
SEVERITY:- ABNORMAL ECG - SINUS RHYTHM PROBABLE LEFT ATRIAL ABNORMALITY ABNRM R PROG, CONSIDER ASMI OR LEAD PLACEMENT BORDERLINE T WAVE ABNORMALITIES : Confirmed by: Yassine Fisher 05-Aug-2019 21:57:25
[2019-08-05 22:20] LABS: ALBUMIN 3.7 g/dL (3.5-5.0); ALKALINE PHOSPHATASE 129 U/L (38-126); ANION GAP 6 (5-19); ASPARTATE AMINO TRANSFERASE 36 U/L (14-36); BILIRUBIN,DIRECT 0.3 mg/dL (0.0-0.4); BILIRUBIN,TOTAL 0.4 mg/dL (0.2-1.3); BLOOD UREA NITROGEN 25 mg/dL (7-20); CARBON DIOXIDE 31 mmol/L (22-30); CHLORIDE 103 mmol/L (98-107); POTASSIUM 3.9 mmol/L (3.6-5.0); TOTAL PROTEIN 7.4 g/dL (6.3-8.2)
[2019-08-05 22:32] LABS: GLUCOSE 64 mg/dL (75-110)
[2019-08-05] MEDS ORDERED: MINERAL OIL 30 ML UDCUP PR ONE (22:44)
[2019-08-05 22:56] LABS: FREE T3 2.84 pg/mL (2.77-5.27); FREE T4 (FREE THYROXINE) 0.99 ng/dL (0.78-2.19)
[2019-08-05 23:09] LABS: THYROID STIMULATING HORMONE 2.23 uIU/mL (0.47-4.68)
[2019-08-06 01:51] LABS: APPEARANCE,URINE CLEAR; BILIRUBIN,URINE NEGATIVE (NEGATIVE); COLOR,URINE STRAW; GLUCOSE, URINE NEGATIVE (NEGATIVE); KETONES,URINE NEGATIVE (NEGATIVE); LEUKOCYTE ESTERASE,URINE NEGATIVE (NEGATIVE); NITRITE,URINE NEGATIVE (NEGATIVE); PROTEIN,URINE 100 mg/dL (NEGATIVE); URINE SPECIFIC GRAVITY 1.011; UROBILINOGEN,URINE NEGATIVE mg/dL (<2.0)
[2019-08-06 02:16] VITALS: BP 190/65
--- NOTE | 2019-08-06 16:04 | XCELERA REPORT ---
[address] [facility] [place] [address] Lower Extremity Venous Evaluation Procedure: Color flow and duplex imaging of the veins of the right lower extremity as well as the left Common Femoral vein. Right Sided Venous Evaluation Normal vessel filling wall to wall, compression and augmentation as well as Colour flow down to the infrageniculate veins. Left Sided Venous Evaluation The left common femoral vein is fully compressible. Spontaneous and phasic flow is present in the left common femoral vein. Interpretation Summary No duplex evidence of DVT or obstruction in the right lower extremity nor in the left Common Femoral vein. Preliminary results given to attending physician at 22:00 Name: ADAM RIVAS Age: 64 yrs Gender: Female : 1955 Patient Status: Emergency Patient Location: ER Study Date: 08/05/2019 09:47 PM Reason For Study: Rt LE swelling/pain, spot check arteries plz Ordering Physician: HENRIQUE YOUNG Performed By: Belle Faulkner : HENRIQUE YOUNG > Manny Marroquin
== END 2019-08-06 02:20 | disposition home or self-care (01) ==
LOC: ER 18:10
DX: R10.84 Generalized abdominal pain (principal); K59.00 Constipation, unspecified; M79.89 Other specified soft tissue disorders; Z90.710 Acquired absence of both cervix and uterus; E11.9 Type 2 diabetes mellitus without complications; I10 Essential (primary) hypertension; I25.10 Atherosclerotic heart disease of native coronary artery without angina pectoris
CPT/HCPCS: 93005; 99284; 36415; 84439; 84443; 85025; 80053; 81001; 84481; 83880; 93971 ×2; 71046; 74018; 93010; A9270 ×2; J3490

== ENCOUNTER 2019-08-10 07:24 | Emergency (ER) | payer MEDICARE, OTHER ==
[2019-08-10 07:34] VITALS: BP 204/74
--- NOTE | 2019-08-10 13:20 | ER Document Report ---
Entered by MARLENY URENA SCRIBE 08/10/19 0817 Acting as scribe for:KELLY TOURE DO ED Suture/Wound Recheck - General Chief Complaint: Suture Removal Stated Complaint: SUTURE REMOVAL Time Seen by Provider: 08/10/19 08:04 Primary Care Provider: ERNESTO SHARPE PA [Primary Care Provider] - Follow up as needed Mode of Arrival: Ambulatory Notes: This 64-year-old female patient presents to the emergency department today with for a wound recheck. Patient is here to have sutures removed from her left third finger. Patient has no complaints. TRAVEL OUTSIDE OF THE [place] IN LAST 30 DAYS: No - Related Data Allergies/Adverse Reactions: No Known Allergies Allergy (Verified 08/10/19 07:47) Past Medical History - General Information source: Patient - Social History Smoking Status: Never Smoker Cigarette use (# per day): No Chew tobacco use (# tins/day): Yes Frequency of alcohol use: None Drug Abuse: None Lives with: Family Family History: CAD, DM, Hypertension Patient has suicidal ideation: No Patient has homicidal ideation: No - Past Medical History Cardiac Medical History: Reports: Hx Coronary Artery Disease - STENTS PLACED IN LEGS, Hx Hypercholesterolemia, Hx Hypertension, Hx Peripheral Vascular Disease - Stents placed in legs. Endocrine Medical History: Reports: Hx Diabetes Mellitus Type 2, Hx Hypothyroidism Renal/ Medical History: Reports: Hx Renal Insufficiency GI Medical History: Reports: Hx Endoscopy Musculoskeletal Medical History: Reports Hx Arthritis Psychiatric Medical History: Reports: Hx Dementia Past Surgical History: Reports: Hx Appendectomy, Hx Hysterectomy, Hx Vascular Surgery - Right leg artery stent, Other - Cataract surgery - Immunizations Hx Diphtheria, Pertussis, Tetanus Vaccination: Yes Review of Systems - Review of Systems Constitutional: No symptoms reported EENT: No symptoms reported Cardiovascular: No symptoms reported Respiratory: No symptoms reported Gastrointestinal: No symptoms reported Genitourinary: No symptoms reported Female Genitourinary: No symptoms reported Musculoskeletal: No symptoms reported Skin: See HPI Hematologic/Lymphatic: No symptoms reported Neurological/Psychological: No symptoms reported -: Yes All other systems reviewed and negative Physical Exam - Vital signs Vitals: Temp Pulse Resp BP Pulse Ox 98.5 F 72 19 204/74 H 100 08/10/19 07:33 08/10/19 07:33 08/10/19 07:33 08/10/19 07:33 08/10/19 07:33 - Notes Notes: Physical Exam: General: Alert, appears well. HEENT: Normocephalic. Atraumatic. PERRLA. Extraocular movements intact. Oropharynx clear. Neck: Supple. Respiratory: No respiratory distress. Abdominal: Normal Inspection. No distension. Extremities: Moves all four extremities. Neurological: Normal cognition. AAOx4. Normal speech. Psychological: Normal affect. Normal Mood. Skin: Warm. Dry. Normal color. Well healed 3rd finger tip laceration. Course - Vital Signs Vital signs: Temp Pulse Resp BP Pulse Ox 98.5 F 72 19 204/74 H 100 08/10/19 07:33 08/10/19 07:33 08/10/19 07:33 08/10/19 07:33 08/10/19 07:33 Discharge - Discharge Clinical Impression: Encounter for wound care, Visit for suture removal Condition: Good Disposition: HOME, SELF-CARE Instructions: Suture Removal Additional Instructions: Keep hand clean and dry. Please return here for any problems or any concerns. Take your medicine as directed. Referrals: ERNESTO SHARPE PA [Primary Care Provider] - Follow up as needed I personally performed the services described in the documentation, reviewed and edited the documentation which was dictated to the scribe in my presence, and it accurately records my words and actions.
== END 2019-08-10 08:30 | disposition home or self-care (01) ==
LOC: ER 07:24
DX: S61.213D Laceration without foreign body of left middle finger without damage to nail, subsequent encounter (principal); X58.XXXD Exposure to other specified factors, subsequent encounter; I25.10 Atherosclerotic heart disease of native coronary artery without angina pectoris; I10 Essential (primary) hypertension; E11.51 Type 2 diabetes mellitus with diabetic peripheral angiopathy without gangrene; Z72.0 Tobacco use

== ENCOUNTER → 2020-02-14 | Outpatient (CLI) | payer MEDICARE, OTHER ==
--- NOTE | 2020-02-14 09:56 | WOMENS IMAGING REPORT ---
EXAM DESCRIPTION: 3D SCREENING MAMMO BILAT IMAGES COMPLETED DATE/TIME: 02/14/2020 8:53 am REASON FOR STUDY: Z12.31 ENCNTR SCREEN MAMMOGRAM FOR MALIGNANT NEOPLASM OF BREAST Z12.31 ENCNTR SCR EEN MAMMOGRAM FOR MALIGNANT NEOPLASM OF RODNEY COMPARISON: 02/09/2019, 02/08/2018, 01/28/2017 EXAM PARAMETERS: Views: Standard craniocaudal and mediolateral oblique views of each breast recorded using digital acquisition and breast tomosynthesis. Read with the assistance of CAD. .FORMERLY [facility] [place] [employer] Version 9.2 LIMITATIONS: None. FINDINGS: No suspicious masses, suspicious calcifications or architectural distortion. No areas of c oncern. IMPRESSION: NEGATIVE MAMMOGRAM. BIRADS 1. BREAST DENSITY: b. There are scattered areas of fibroglandular density. BIRAD: ASSESSMENT: 1 NEGATIVE RECOMMENDATION: ROUTINE SCREENING COMMENT: The patient has been notified of the results by letter per MQSA requirements. Additional no tification policies are in place for contacting patient with suspicious or incomplete findings. Quality ID #[id number]: The [employer] recommends an annual screening mammogram for women aged 40 years or over. This facility utilizes a reminder system to ensure that all patients receive reminder letters, and/or direct phone calls for appointments. This includes reminders for routine scr eening mammograms, diagnostic mammograms, or other Breast Imaging Interventions when appropriate. Th is patient will be placed in the appropriate reminder system. TECHNICAL DOCUMENTATION: FINDING NUMBER: (1) ASSESSMENT: (1) JOB ID: [id number] 2010 [employer]- All Rights Reserved Reading location - IP/workstation name: [email or web address]
== END ==
LOC: WI 08:05
PROVIDERS: ATTEND Physician Assistant
DX: Z12.31 Encounter for screening mammogram for malignant neoplasm of breast (principal)
CPT/HCPCS: 77063; 77067

== ENCOUNTER 2020-03-12 11:38 | Outpatient (CLI) | payer MEDICARE, OTHER ==
[~2020-03-12 11:38] MED LIST changes: +FERRIC CARBOXYMALTOSE 750 MG in NORMAL SALINE 100 ML IV PRN; -FERRIC CARBOXYMALTOSE 750 MG in NORMAL SALINE 250 ML IV PRN
[2020-03-12 12:21] VITALS: BP 219/73
== END 2020-03-12 13:15 | disposition home or self-care (01) ==
LOC: II 11:38 → 5TH 11:40 → II 13:15
PROVIDERS: ATTEND Internal Medicine Nephrology
DX: D50.8 Other iron deficiency anemias (principal)
CPT/HCPCS: 96365; J7050; J1439

== ENCOUNTER 2020-03-19 11:31 | Outpatient (CLI) | payer MEDICARE, OTHER ==
[~2020-03-19 11:31] MED LIST changes: -FERRIC CARBOXYMALTOSE 750 MG in NORMAL SALINE 100 ML IV PRN; +FERRIC CARBOXYMALTOSE 750 MG in NORMAL SALINE 250 ML IV PRN
[2020-03-19 12:05] VITALS: BP 198/73
== END 2020-03-19 12:45 | disposition home or self-care (01) ==
LOC: II 11:31 → 5TH 11:35 → II 12:45
PROVIDERS: ATTEND Internal Medicine Nephrology
DX: D50.8 Other iron deficiency anemias (principal)
CPT/HCPCS: 96365; J7050; J1439

== ENCOUNTER → 2020-07-11 | Outpatient (CLI) | payer MEDICARE, OTHER ==
--- NOTE | 2020-07-11 16:24 | RADIOLOGY REPORT (SQ) ---
EXAM DESCRIPTION: FOOT LEFT COMPLETE IMAGES COMPLETED DATE/TIME: 07/11/2020 12:55 pm REASON FOR STUDY: (M79.672)PAIN IN LEFT FOOT M79.672 PAIN IN LEFT FOOT COMPARISON: None. NUMBER OF VIEWS: Three views. TECHNIQUE: AP, lateral and oblique without weight bearing radiographic images acquired of the left f oot. LIMITATIONS: None. FINDINGS: MINERALIZATION: Normal. BONES: No acute fracture or dislocation. No worrisome bone lesions. No significant osteophytes. JOINTS: No erosions. No tiago-articular osteopenia. No chondrocalcinosis. SOFT TISSUES: No swelling. No calcifications. OTHER: No other significant finding. IMPRESSION: NEGATIVE STUDY OF THE LEFT FOOT. NO EXPLANATION FOR PAIN. TECHNICAL DOCUMENTATION: JOB ID: [id number] 2010 [employer]- All Rights Reserved Reading location - IP/workstation name: [email or web address]
== END ==
LOC: RAD 12:21
PROVIDERS: ATTEND Physician Assistant
DX: M79.672 Pain in left foot (principal)